=== PATIENT | male | born 1970 | race Caucasian/White ===

== ENCOUNTER 2016-06-22 20:00 | Outpatient (CLI) | payer BC | END 2016-06-23 06:40 | disposition home or self-care (01) | LOC: SLEEP 20:00 | PROVIDERS: ATTEND Nurse Practitioner Family | DX: G47.33 Obstructive sleep apnea (adult) (pediatric) (principal); I10 Essential (primary) hypertension | CPT/HCPCS: 95811 ==

== ENCOUNTER → 2016-06-24 | Outpatient (CLI) | payer BC ==
--- NOTE | 2016-06-24 16:12 | Diagnostic Imaging Report ---
EXAMINATION: Bilateral lower extremity duplex venous ultrasound. TECHNIQUE: DVT protocol. Multiple sonographic images with color Doppler and waveform interrogation were performed of the lower extremity veins, bilaterally, with compression and augmentation maneuvers. INDICATION: Bilateral leg swelling. FINDINGS: The lower extremity veins from the common femoral veins to below the knee veins were examined with normal color-flow, compressibility and normal waveform demonstrated. Due to the large body habitus and swelling however femoral vein in the distal left thigh is not well seen. IMPRESSION: The femoral vein is not seen in the distal left thigh due to large body habitus and swelling. No evidence of DVT in either lower extremity noted otherwise. Correlate clinically. Dictated by: Dictated on workstation # [id number]
--- NOTE | 2016-06-26 09:52 | ECHOCARDIOGRAPHY REPORT ---
PROCEDURE PHYSICIAN: MARK MUELLER DATE OF PROCEDURE: 06/24/2016 TWO DIMENSIONAL ECHOCARDIOGRAM REPORT PRIMARY PHYSICIAN: Dr. Selina Hester OTHER PHYSICIAN: REFERRING PHYSICIAN: ORDERING PHYSICIAN: ATTENDING PHYSICIAN: FAMILY PHYSICIAN: READING PHYSICIAN: INDICATION FOR THE PROCEDURE: Peripheral edema, shortness of breath MEASUREMENTS DERIVED VALUES LV DIAMETER (LAX) NORMALS NORMALS Diastolic (3.6-5.2) Eject. Fract. (60%+/-6%) Systolic (2.3-3.9) Diastolic Vol. % Shortening (0.22-0.42) Systolic Vol. Aortic Root IVS THICKNESS Diastolic (0.6-1.1) LVPW THICKNESS Diastolic (0.6-1.1) LA DIAMETER Systolic (2.1-3.7) FINDINGS: 1. This is a technically difficult study due to morbid obesity. 2. Sinus rhythm. 3. Left atrial dimensions are enlarged. Left atrial diameter is 4.2 cm. 4. Aortic root dimensions are normal. 5. Left ventricular ejection fraction is probably preserved with an EF of around 60%. Mild concentric LVH is present with diastolic intraventricular septal diameter of 1.1 cm. 6. It is difficult to accurately assess wall motion abnormality due to technically difficult study due to morbid obesity. Contrast echocardiogram is recommended. 7. Difficult to assess right heart dimension and function. 8. There is no evidence of pericardial effusion. 9. Difficult to comment on diastolic dysfunction. 10. IVC was not well visualized. VALVULAR STRUCTURE OF THE HEART: Mild tricuspid regurgitation with RVSP of 23 mmHg. No significant mitral regurgitation, aortic valve pathology was seen. Pulmonic valve was not well visualized. CONCLUSION: 1. Due to morbid obesity this is a technically difficult study. Contrast echocardiogram is recommended. 2. LV EF is probably normal with an EF of 60 to 65%. We cannot comment on wall motion. If accurate delineation of ejection fraction and wall motion is required then contrast echocardiogram is recommended. 3. There is no significant valvular heart disease. 4. RVSP is not significantly elevated. Job ID: [id number] Dictated Date: 06/25/2016 15:14:10 Carrot Grader Inspector Date: 06/26/2016 09:45:24 / pat
== END ==
LOC: CARD 14:13
PROVIDERS: ATTEND Internal Medicine Interventional Cardiology
DX: R60.0 Localized edema (principal); I10 Essential (primary) hypertension; E66.9 Obesity, unspecified
CPT/HCPCS: 93306; 93970

== ENCOUNTER → 2016-07-09 | Outpatient (CLI) | payer BC ==
--- NOTE | 2016-07-09 14:57 | Diagnostic Imaging Report ---
INDICATION: Pain in the lumbar region radiating into left hip for one and a half months. FINDINGS: Two views of the left hip are somewhat limited due to the large body habitus. There is no fracture, dislocation, or other acute abnormality seen. No significant degenerative changes are evident. No avascular necrosis is evident. IMPRESSION: No abnormality is seen. Dictated by: Dictated on workstation # [id number]
--- NOTE | 2016-07-09 14:57 | Diagnostic Imaging Report ---
INDICATION: Lumbar pain with radiation to the left hip FINDINGS: AP and lateral views of the lumbar spine are obtained. Study is limited by patient body habitus. Lumbar spinal curvature and alignment are within normal limits. There is mild narrowing of the L4-5 and L5-S1 disc spaces with mild endplate spurring. There is no evidence of fracture or malalignment. IMPRESSION: L4-5 and L5-S1 degenerative change without evidence of acute abnormality detected. Dictated by: Dictated on workstation # [id number]
== END ==
LOC: RAD 11:30
PROVIDERS: ATTEND Nurse Practitioner Family
DX: M25.552 Pain in left hip (principal)
CPT/HCPCS: 72100; 73502

== ENCOUNTER → 2016-11-29 | Outpatient (CLI) | payer BC | LOC: CARD 09:05 | PROVIDERS: ATTEND Internal Medicine Interventional Cardiology | DX: I10 Essential (primary) hypertension (principal); R60.9 Edema, unspecified | CPT/HCPCS: 93306 ==

== ENCOUNTER 2017-10-08 10:18 | Emergency (ER) | payer BC ==
[~2017-10-08] VITALS: Ht 188 cm; Wt 231.3 kg
--- OUTSIDE RECORDS SUMMARY | 2017-10-08 10:24 | XMS REPORT | Continuity of Care Document ---
Author Author [facility] Organization [facility] Address Unknown Phone Unavailable Allergies There is no data. Medications There is no data. Problems Date Dx Coded Attending Type Code Diagnosis Diagnosed By 05/24/2013 NAM CARDOSO APRN 719.41 PAIN- SHOULDER 05/24/2013 GIAN LYNCH APRN 719.41 PAIN- SHOULDER 09/23/2013 GIAN LYNCH APRN 278.00 OBESITY UNSPECIFIED 09/23/2013 GIAN LYNCH APRN R 782.2 LOCALIZED SUPERFICIAL SWELLING MASS OR LUMP 09/24/2013 GIAN LYNCH APRN R 278.01 OBESITY, MORBID (BMI >40) 09/24/2013 GIAN LYNCH APRN R 780.79 fatigue 09/24/2013 GIAN LYNCH APRN R V70.0 EXAM - ROUTINE H&P 05/17/2016 GIAN LYNCH R STEAM TABLE ASSOCIATE Ot 709.9 SKIN DISORDER NOS 05/17/2016 GIAN LYNCH R STEAM TABLE ASSOCIATE Ot 782.2 LOCAL SUPRFICIAL SWELLNG 05/21/2016 GIAN LYNCH R STEAM TABLE ASSOCIATE Ot 709.9 SKIN DISORDER NOS 05/21/2016 GIAN LYNCH R STEAM TABLE ASSOCIATE Ot 782.2 LOCAL SUPRFICIAL SWELLNG 06/19/2016 GIAN LYNCH R STEAM TABLE ASSOCIATE Ot 709.9 SKIN DISORDER NOS 06/19/2016 GIAN LYNCH R STEAM TABLE ASSOCIATE Ot 782.2 LOCAL SUPRFICIAL SWELLNG 06/20/2016 GIAN LYNCH R STEAM TABLE ASSOCIATE Ot 709.9 SKIN DISORDER NOS 06/20/2016 GIAN LYNCH R STEAM TABLE ASSOCIATE Ot 782.2 LOCAL SUPRFICIAL SWELLNG 06/23/2016 BRITTON HARRIS APRN Ot G47.33 OBSTRUCTIVE SLEEP APNEA (ADULT) (PEDIATR 06/23/2016 BRITTON HARRIS APRN Ot I10 ESSENTIAL (PRIMARY) HYPERTENSION 06/25/2016 Panfilo MUELLER MD Ot E66.9 OBESITY, UNSPECIFIED 06/25/2016 Panfilo MUELLER MD Ot I10 ESSENTIAL (PRIMARY) HYPERTENSION 06/25/2016 Panfilo MUELLER MD Ot R60.0 LOCALIZED EDEMA 06/25/2016 Panfilo MUELLER MD Ot E66.9 OBESITY, UNSPECIFIED 06/25/2016 Panfilo MUELLER MD Ot I10 ESSENTIAL (PRIMARY) HYPERTENSION 06/25/2016 Panfilo MUELLER MD Ot R60.0 LOCALIZED EDEMA 06/28/2016 BRITTON HARRIS STEAM TABLE ASSOCIATE Ot G47.33 OBSTRUCTIVE SLEEP APNEA (ADULT) (PEDIATR 06/28/2016 BRITTON HARRIS STEAM TABLE ASSOCIATE Ot I10 ESSENTIAL (PRIMARY) HYPERTENSION 06/28/2016 Panfilo MUELLER MD Ot E66.9 OBESITY, UNSPECIFIED 06/28/2016 Panfilo MUELLER MD Ot I10 ESSENTIAL (PRIMARY) HYPERTENSION 06/28/2016 Panfilo MUELLER MD Ot R60.0 LOCALIZED EDEMA 07/10/2016 BRITTON HARRIS STEAM TABLE ASSOCIATE Ot M25.552 PAIN IN LEFT HIP 07/10/2016 BRITTON HARRIS STEAM TABLE ASSOCIATE Ot M25.552 PAIN IN LEFT HIP 07/11/2016 Panfilo MUELLER MD Ot E66.9 OBESITY, UNSPECIFIED 07/11/2016 Panfilo MUELLER MD Ot I10 ESSENTIAL (PRIMARY) HYPERTENSION 07/11/2016 Panfilo MUELLER MD Ot R60.0 LOCALIZED EDEMA 07/18/2016 BRITTON HARRIS STEAM TABLE ASSOCIATE Ot M25.552 PAIN IN LEFT HIP 11/29/2016 Panfilo MUELLER MD Ot E66.9 OBESITY, UNSPECIFIED 11/29/2016 Panfilo MUELLER MD Ot I10 ESSENTIAL (PRIMARY) HYPERTENSION 11/29/2016 Panfilo MUELLER MD Ot R60.0 LOCALIZED EDEMA 11/29/2016 BRITTON HARRIS STEAM TABLE ASSOCIATE Ot M25.552 PAIN IN LEFT HIP 12/02/2016 Panfilo MUELLER MD Ot I10 ESSENTIAL (PRIMARY) HYPERTENSION 12/02/2016 Panfilo MUELLER MD Ot R60.9 EDEMA, UNSPECIFIED 12/05/2016 Panfilo MUELLER MD Ot E66.9 OBESITY, UNSPECIFIED 12/05/2016 Panfilo MUELLER MD Ot I10 ESSENTIAL (PRIMARY) HYPERTENSION 12/05/2016 Panfilo MUELLER MD Ot R60.0 LOCALIZED EDEMA 12/05/2016 BRITTON HARRIS APRN Ot M25.552 PAIN IN LEFT HIP 12/05/2016 Panfilo MUELLER MD Ot I10 ESSENTIAL (PRIMARY) HYPERTENSION 12/05/2016 Panfilo MUELLER MD, Ot R60.9 EDEMA, UNSPECIFIED 12/11/2016 Panfilo MUELLER MD, Ot I10 ESSENTIAL (PRIMARY) HYPERTENSION 12/11/2016 Panfilo MUELLER MD Ot R60.9 EDEMA, UNSPECIFIED 12/13/2016 Panfilo MUELLER MD Ot I10 ESSENTIAL (PRIMARY) HYPERTENSION 12/13/2016 Panfilo MUELLER MD Ot R60.9 EDEMA, UNSPECIFIED Procedures Code [place] [address] ROUTINE VENIPUNCTURE 09/24/2013 59175 CBC 09/24/2013 [id number] GFR CALC (RESULT ONLY) 09/24/2013 83730 CMP 09/24/2013 85007 LIPID PANEL 09/24/2013 69714 T4 FREE 09/24/2013 52253 TSH 09/24/2013 42056 T3 TOTAL 09/24/2013 09385 TESTOSTERONE TOTAL MALES 09/24/2013 51408 PROLACTIN 09/28/2013 17522 PSA TOTAL 09/28/2013 97939 US SOFT TISSUE (SPECIFY LOCATION) 10/07/2013 General S Yannick Miles 10/13/2013 Results There is no data. Encounters ACCT No. Visit Date/Time Discharge Status Pt. Type Provider Facility Loc./Unit Complaint [id number] 11/29/2016 09:05:00 11/29/2016 23:59:59 CLS Outpatient Panfilo MUELLER MD [facility] CARD ESSENTIAL HTN I10 [id number] 07/09/2016 11:30:00 07/09/2016 23:59:59 CLS Outpatient BRITTON HARRIS APRN [facility] RAD LEFT HIP PAIN [id number] 06/24/2016 14:13:00 06/24/2016 23:59:59 CLS Outpatient Panfilo MUELLER MD [facility] CARD PERIPHERAL EDEMA [id number] 06/22/2016 20:00:00 06/23/2016 06:40:00 DIS Outpatient BRITTON HARRIS APRN [facility] SLEEP JEFERSON [id number] 10/12/2013 14:41:00 10/12/2013 23:59:59 CLS Outpatient GIAN LYNCH APRN [facility] RAD LESION ON UPPER LT BUTTOCK [id number] 09/24/2013 07:57:00 09/24/2013 23:59:59 CLS Outpatient GIAN LYNCH APRN [id number] 05/24/2013 14:02:00 05/24/2013 23:59:59 CLS Outpatient NAM CARDOSO APRN [id number] 03/20/2017 10:37:35 03/20/2017 23:59:59 CLS Outpatient
--- OUTSIDE RECORDS SUMMARY | 2017-10-08 10:24 | XMS REPORT | Clinical Summary ---
Author Author [facility] Organization [facility] Address Unknown Phone Unavailable Care Team Providers Care Induction Heating Equipment Setter Name Role Phone [place] MD PCP Source Comments Some departments are not documenting in the electronic medical record. If you do not see the information that you expected, contact Release of Information in the Health Information Management department at [phone] for further assistance in locating additional records.[facility] Allergies No Known Allergies Current Medications Prescription Sig. Disp. Refills Start End Date Status Date furosemide (LASIX) 40 mg Take 40 mg by mouth every Active tablet morning. lisinopril (PRINIVIL; Take 20 mg by mouth Active ZESTRIL) 20 mg tablet daily. AMLODIPINE BESYLATE Use 5 mg as directed. Active (BULK) MISC metOLazone (ZAROXOLYN) 5 Take 5 mg by mouth daily. Active mg tablet potassium chloride SR Take 20 mEq by mouth Active (K-DUR) 20 mEq tablet daily. Take with a meal and a full glass of water. clobetasol (TEMOVATE) Apply topically to 60 g 3 02/04/20 Active 0.05 % topical ointment affected area twice 17 daily. Active Problems Not on file Family History Medical History Relation Name Comments Heart Attack Father Heart Disease Father Stroke Father Heart Attack Maternal Grandfather Heart Disease Maternal Grandfather Hypertension Maternal Grandfather Stroke Maternal Grandfather Diabetes Mother Hypertension Mother Stroke Mother Relation Name Status Comments Father Maternal Grandfather Mother Social History Tobacco Use Types Packs/Day Years Used Date Never Smoker Smokeless Tobacco: Former Snuff, Chew Quit: 2006 User Alcohol Use Drinks/Week oz/Week Comments Yes 1 Cans of 0.6 beer Sex Assigned at Date Recorded Not on file Last Filed Vital Signs Vital Sign Reading Time Taken Blood Pressure 114/64 02/03/2017 10:28 AM CDT Pulse 68 02/03/2017 10:28 AM CDT Temperature - - Respiratory Rate - - Oxygen Saturation - - Inhaled Oxygen - - Concentration Weight 222.7 kg (491 lb) 02/03/2017 10:28 AM CDT Height 188 cm (6' 2") 02/03/2017 10:28 AM CDT Body Mass Index 63.04 02/03/2017 10:28 AM CDT Plan of Treatment Health Maintenance Due Date Last Done Comments PHYSICAL (COMPREHENSIVE) 10/15/1979 EXAM PERTUSSIS VACCINE 10/15/1983 HIV SCREENING 10/15/1987 TETANUS VACCINE 1989 INFLUENZA VACCINE 02/16/2018 02/17/2015 Results Not on filefrom Last 3 Months
[2017-10-08] MEDS ORDERED: FAMOTIDINE 20 MG (PEPCID) TABLET PO STA (10:41)
[2017-10-08] MEDS ORDERED: LIDOCAINE 2% VISCOUS 15 ML UDC PO ONE (10:45)
[2017-10-08] MEDS ORDERED: ANTACID SUSP 30 ML UDC (MYLANTA) PO ONE (10:45)
--- NOTE | 2017-10-08 10:50 | ED Abdominal Pain ---
General Stated Complaint: ABD PAIN Source of Information: Patient, Other Exam Limitations: No Limitations History of Present Illness Date Seen by Provider: October 08, 2017 Time Seen by Provider: 10:35 Initial Comments The patient presents to the ER by private conveyance with a chief complaint he' s been having some midepigastric abdominal pain that feels burning and some constant for the past for 5 days and progressively getting worse. He took Tums a couple times but didn't feel that that helped. He has no primary coronary artery disease other than a history of hypertension and his father had a heart attack after the age of 50. He is on medications for his blood pressure and seen by Dr. Bauer as well as Dr. Kushal Pal. He is not diabetic, have hypercholesterolism, hypothyroidism, smoking. Occasionally he's had some nausea but no vomiting. He is not nauseated right now and is not having any fevers or chills. He denies dysuria, diarrhea or constipation. Last bowel movement was today normal. Last oral intake was he had a glass of water about an hour ago and ate breakfast at 6:30 this morning, 4 hours ago. No abd surgery. Pain radiates to the RUQ Allergies and Home Medications Allergies Coded Allergies: No Known Drug Allergies (Unverified , 10/08/17) Home Medications Amlodipine Besylate 5 Mg Tablet, 5 MG PO DAILY, (Reported) Insulin Determir 1,000 Units/10 Ml Soln, 15 UNITS SQ BID Prescribed by: LOREE ORELLANA on 10/08/17 1333 Lisinopril 20 Mg Tablet, 20 MG PO DAILY, (Reported) Patient Home Medication List Home Medication List Reviewed: Yes Review of Systems Constitutional: No chills, No diaphoresis, No malaise EENTM: No Blurred Vision, No Double Vision Respiratory: Denies Cough, Denies Shortness of Air Cardiovascular: Denies Chest Pain; Edema (chronic); Denies Palpitations, Denies Syncope Gastrointestinal: Denies Abdomen Distended; Abdominal Pain; Denies Constipated , Denies Diarrhea; Nausea; Denies Vomiting; Other (gassy) Genitourinary: Denies Burning, Denies Discharge Musculoskeletal: No back pain, No joint pain Skin: No pruritus, No rash Past Lxueims-Wdyljo-Cyjqie Hx Patient Social History Alcohol Use: Occasionally Uses Alcohol Beverage of Choice: Beer Recreational Drug Use: No Smoking Status: Never a Smoker Recent Foreign Travel: No Contact w/Someone Who Travel: No Physical Exam Vital Signs Vital Signs - First Documented 10/08/17 10:30 Temp 97.2 Pulse 108 Resp 18 B/P (MAP) 144/89 (107) Pulse Ox 93 Capillary Refill : General Appearance: WD/WN, no apparent distress, obese HEENT: PERRL/EOMI, pharynx normal Neck: non-tender, full range of motion, supple, normal inspection Respiratory: chest non-tender, lungs clear, normal breath sounds, no respiratory distress, no accessory muscle use Cardiovascular: normal peripheral pulses, regular rate, rhythm, no edema Gastrointestinal: normal bowel sounds, soft, tenderness (mid epigastric), other (ibarra's negative) Extremities: normal inspection, no pedal edema, normal capillary refill Neurologic/Psychiatric: alert, normal mood/affect, oriented x 3 Skin: normal color, warm/dry Progress/Results/Core Measures Results/Orders Lab Results Laboratory Tests Test 10/08/17 10:45 10/08/17 11:15 10/08/17 12:26 Range/Units White Blood Count 11.4 H 4.3-11.0 10^3/uL Red Blood Count 4.92 4.35-5.85 10^6/uL Hemoglobin 15.9 13.3-17.7 G/DL Hematocrit 45 40-54 % Mean Corpuscular Volume 91 80-99 FL Mean Corpuscular Hemoglobin 32 25-34 PG Mean Corpuscular Hemoglobin Concent 36 32-36 G/DL Red Cell Distribution Width 13.1 10.0-14.5 % Platelet Count 267 130-400 10^3/uL Mean Platelet Volume 10.4 7.4-10.4 FL Neutrophils (%) (Auto) 62 42-75 % Lymphocytes (%) (Auto) 25 12-44 % Monocytes (%) (Auto) 12 0-12 % Eosinophils (%) (Auto) 0 0-10 % Basophils (%) (Auto) 0 0-10 % Neutrophils # (Auto) 7.1 1.8-7.8 X 10^3 Lymphocytes # (Auto) 2.9 1.0-4.0 X 10^3 Monocytes # (Auto) 1.4 H 0.0-1.0 X 10^3 Eosinophils # (Auto) 0.0 0.0-0.3 10^3/uL Basophils # (Auto) 0.1 0.0-0.1 10^3/uL Sodium Level 130 L 135-145 MMOL/L Potassium Level 3.7 3.6-5.0 MMOL/L Chloride Level 91 L 98-107 MMOL/L Carbon Dioxide Level 25 21-32 MMOL/L Anion Gap 14 5-14 MMOL/L Blood Urea Nitrogen 20 H 7-18 MG/DL Creatinine 1.08 0.60-1.30 MG/DL Estimat Glomerular Filtration Rate > 60 BUN/Creatinine Ratio 19 Glucose Level 572 *H 70-105 MG/DL Calcium Level 9.6 8.5-10.1 MG/DL Total Bilirubin 1.0 0.1-1.0 MG/DL Aspartate Amino Transf (AST/SGOT) 35 H 5-34 U/L Alanine Aminotransferase (ALT/SGPT) 65 H 0-55 U/L Alkaline Phosphatase 71 40-136 U/L Troponin I < 0.30 <0.30 NG/ML Total Protein 7.6 6.4-8.2 GM/DL Albumin 4.2 3.2-4.5 GM/DL Lipase 23 8-78 U/L Urine Color YELLOW Urine Clarity CLEAR Urine pH 6 5-9 Urine Specific [place] 1.015 L 1.016-1.022 Urine Protein NEGATIVE NEGATIVE Urine Glucose (UA) 4+ H NEGATIVE Urine Ketones 2+ H NEGATIVE Urine Nitrite NEGATIVE NEGATIVE Urine Bilirubin NEGATIVE NEGATIVE Urine Urobilinogen NORMAL NORMAL MG/DL Urine Leukocyte Esterase NEGATIVE NEGATIVE Urine RBC (Auto) NEGATIVE NEGATIVE Urine RBC RARE /HPF Urine WBC NONE /HPF Urine Crystals NONE /LPF Urine Bacteria NEGATIVE /HPF Urine Casts NONE /LPF Urine Mucus NEGATIVE /LPF Urine Culture Indicated NO My Orders Orders - LOREE ORELLANA Cbc With Automated Diff (10/08/17 10:41) Comprehensive Metabolic Panel (10/08/17 10:41) Lipase (10/08/17 10:41) Lidocaine 2% Viscous 15 Ml (Xylocaine Vi (10/08/17 10:45) Famotidine Tablet (Pepcid Tablet) (10/08/17 10:41) Antacid Suspension (Mylanta Suspension (10/08/17 10:45) Saline Lock/Iv-Start (10/08/17 10:41) Ekg Tracing (10/08/17 10:57) Troponin I (10/08/17 10:57) Ua Culture If Indicated (10/08/17 12:19) Ns Iv 1000 Ml (Sodium Chloride 0.9%) (10/08/17 13:07) Ns Iv 1000 Ml (Sodium Chloride 0.9%) (10/08/17 13:04) Insulin (Regular) Human (Humulin R (Per (10/08/17 13:30) Accucheck Stat ONCE (10/08/17 14:15) Ketorolac Injection (Toradol Injection) (10/08/17 14:30) Medications Given in ED Current Medications Medications Dose Ordered Sig/Kristie Route Start Time Stop Time Status Last Admin Dose Admin Al Hydrox/Mg Hydrox/Simethicone 30 ml ONCE ONCE PO 10/08/17 10:45 10/08/17 10:46 DC 10/08/17 11:02 30 ML Insulin Human Regular 10 unit ONCE ONCE SC 10/08/17 13:30 10/08/17 13:31 DC 10/08/17 13:56 10 UNIT Ketorolac Tromethamine 15 mg ONCE ONCE IVP 10/08/17 14:30 10/08/17 14:31 DC 10/08/17 14:26 15 MG Lidocaine HCl 15 ml ONCE ONCE PO 10/08/17 10:45 10/08/17 10:46 DC 10/08/17 11:02 15 ML Vital Signs/I&O 10/08/17 10:30 Temp 97.2 Pulse 108 Resp 18 B/P (MAP) 144/89 (107) Pulse Ox 93 Progress Progress Note #1: Time: 10:56 Progress Note Differential includes gastritis, GERD, PUD, pancreatitis, cholecystitis. We'll start with labs and a GI cocktail. We'll get an EKG for possible atypical cardiac pain but it is on the present and made worse by eating so it's unlikely. No pleuritic nature of his pain. Initially he is having some symptom relief from the GI cocktail. November [address] Bauer: Left ventricle EF 55-65% normal systolic function and wall thickness. No diastolic dysfunction. RV systolic function normal. Left atrium dilated. No significant valvular heart disease. Progress Note #2: Time: 13:24 Progress Note The patient says that his burning sensation was gone after the GI cocktail images as a dull ache across his abdomen. We discussed the risks, benefits and alternatives to being treated inpatient for a day versus going home and following up close we with his primary care provider. The patient says he has an appointment at 4:30 tomorrow with Kushal Pal so if we can get him tuned up and feeling better he would prefer to go home. We're to give him 2 L of fluids and 10 units of regular insulin subcutaneous. We'll then recheck an Accu-Chek in about half an hour. Were going to try and get the ict educator to do some teaching as well as the RN. I have done some counseling on how to give insulin how to manage as well as diet tips. We have also encouraged a 5-10% weight loss over the next year to help him reduce the need for insulin. We have also discussed strict return precautions. Initial ECG Impression Date: October 08, 2017 Initial ECG Impression Time: 10:57 Initial ECG Rate: 101 Initial ECG Rhythm: S.Tach Initial ECG Intervals: QT (488) Initial ECG Impression: Normal Initial ECG Comparisson: Unchanged Comment No ST elevation or depression. Departure Communication (PCP) 1315; Dr. Kushal Pal: Discussed case lab imaging findings new finding of diabetes. The patient has an appointment tomorrow and if we can get him feeling better with some fluids and insulin he says start him on Levemir 15 units twice a day and have him follow-up tomorrow in the clinic. However if the patient wants to be admitted he is more than willing to admit him under the same plan. Impression Primary Impression: Diabetes mellitus Qualified Codes: E11.8 - Type 2 diabetes mellitus with unspecified complications Additional Impressions: Ketosis due to diabetes Hyperglycemia Disposition: 01 HOME, SELF-CARE Condition: Improved Departure-Patient Inst. Decision time for Depature: 14:35 Referrals: KUSHAL PAL MD (PCP/Family) Primary Care Physician Patient Instructions: DIABETES Add. Discharge Instructions: Keep your follow-up appointment tomorrow afternoon with your doctor. internal grinder set up operator a glucometer and check your blood sugar fasting tomorrow morning as well as 2 hours after the largest meal of the day and take that information with you to your primary care provider. internal grinder set up operator the Levemir and take 15 units and inject it subcutaneously twice a day. Scripts Isopropyl Alcohol (Alcoh-Wipe) 1 Each Towelette EACH MC BID for Hyperglycemia, #1 Prov: LOREE ORELLANA 10/08/17 Syring W-Ndl,Disp,Insul,0.5 ml (Insulin Syringe) 1 Each Disp.syrin EACH MC BID for Hyperglycemia, #100 Prov: LOREE ORELLANA 10/08/17 Lancets (Droplet Lancets) 1 Each Each EACH MC for Hypoglycemia, #100 Prov: LOREE ORELLANA 10/08/17 Blood-Glucose Meter (Blood Glucose Meter) 1 Each Each EACH MC BID for Hypoglycemia, #1 Prov: LOREE ORELLANA 10/08/17 Insulin Determir (Levemir) 1,000 Units/10 Ml Soln 15 UNITS SQ BID, #1 EA Prov: LOREE ORELLANA 10/08/17 Copy Copies To 1: KUSHAL PAL MD, TITUS J October 08, 2017 10:50
[2017-10-08 10:52] LABS: BASOPHILS # (AUTO) 0.1 10^3/uL (0.0-0.1); BASOPHILS % (AUTO) 0 % (0-10); EOSINOPHILS % (AUTO) 0 % (0-10); HEMATOCRIT 45 % (40-54); HEMOGLOBIN 15.9 G/DL (13.3-17.7); LYMPHOCYTES # (AUTO) 2.9 X 10^3 (1.0-4.0); LYMPHOCYTES % (AUTO) 25 % (12-44); MEAN CORPUSCULAR HEMOGLOBIN 32 PG (25-34); MEAN CORPUSCULAR HGB CONC 36 G/DL (32-36); MEAN CORPUSCULAR VOLUME 91 FL (80-99); MEAN PLATELET VOLUME 10.4 FL (7.4-10.4); MONOCYTES # (AUTO) 1.4 X 10^3 (0.0-1.0); MONOCYTES % (AUTO) 12 % (0-12); NEUTROPHILS # (AUTO) 7.1 X 10^3 (1.8-7.8); NEUTROPHILS % (AUTO) 62 % (42-75); PLATELET COUNT 267 10^3/uL (130-400); RED BLOOD COUNT 4.92 10^6/uL (4.35-5.85); RED CELL DISTRIBUTION WIDTH 13.1 % (10.0-14.5); WHITE BLOOD COUNT 11.4 10^3/uL (4.3-11.0)
[2017-10-08] MEDS ORDERED: FURO-124 PO (11:13)
[2017-10-08] MEDS ORDERED: POTA20TA15 PO (11:13)
[2017-10-08] MEDS ORDERED: AMLO5TAB2 PO (11:13)
[2017-10-08] MEDS ORDERED: LISI-552 PO (11:13)
[2017-10-08 11:44] LABS: ALANINE AMINOTRANSFERASE 65 U/L (0-55); ALBUMIN 4.2 GM/DL (3.2-4.5); ALKALINE PHOSPHATASE 71 U/L (40-136); BUN/CREATININE RATIO 19; CALCIUM 9.6 MG/DL (8.5-10.1); CARBON DIOXIDE 25 MMOL/L (21-32); CHLORIDE 91 MMOL/L (98-107); CREATININE SERUM 1.08 MG/DL (0.60-1.30); GFR ESTIMATED > 60; LIPASE 23 U/L (8-78); POTASSIUM 3.7 MMOL/L (3.6-5.0); SODIUM 130 MMOL/L (135-145); TOTAL PROTEIN 7.6 GM/DL (6.4-8.2)
[2017-10-08 12:03] LABS: GLUCOSE 572 MG/DL (70-105)
[2017-10-08 12:35] LABS: BILIRUBIN,URINE NEGATIVE (NEGATIVE); CLARITY,URINE CLEAR; COLOR,URINE YELLOW; GLUCOSE, URINE (UA) 4+ (NEGATIVE); KETONES,URINE 2+ (NEGATIVE); LEUKOCYTE ESTERASE ,URINE NEGATIVE (NEGATIVE); NITRITE,URINE NEGATIVE (NEGATIVE); PH,URINE 6 (5-9); PROTEIN,URINE NEGATIVE (NEGATIVE); UROBILINOGEN,URINE NORMAL (NORMAL)
[2017-10-08 12:43] LABS: BACTERIA,URINE NEGATIVE /HPF; RBC,URINE RARE /HPF
[2017-10-08] MEDS ORDERED: NS IV 1000 ML 2,000 ML ONE (13:04)
[2017-10-08] MEDS ORDERED: NS IV 1000 ML 1,000 ML IV SCH (13:07)
[2017-10-08] MEDS ORDERED: inSUlin (REGULAR) HUMAN 1 UNIT/0.01 ML (CHARGE PER UNIT) SC ONE (13:30)
[2017-10-08] MEDS ORDERED: BLOO1EAC87 MC (13:33)
[2017-10-08] MEDS ORDERED: ISOP1TOW MC (13:33)
[2017-10-08] MEDS ORDERED: [UNRECOGNIZED DRUG - CODE] MC (13:33)
[2017-10-08] MEDS ORDERED: SYRI-820 MC (13:33)
[2017-10-08] MEDS ORDERED: INSU100V5 SQ (13:33)
[2017-10-08] MEDS ORDERED: KETOROLAC 30 MG/ML VIAL IVP ONE (14:30)
[2017-10-08 14:42] VITALS: BP 132/86
== END 2017-10-08 14:41 | disposition home or self-care (01) ==
LOC: EDUNIT# 10:18 → ER 10:20
DX: E11.10 Type 2 diabetes mellitus with ketoacidosis without coma (principal); E11.65 Type 2 diabetes mellitus with hyperglycemia; I10 Essential (primary) hypertension; Z79.4 Long term (current) use of insulin; Z82.49 Family history of ischemic heart disease and other diseases of the circulatory system
CPT/HCPCS: 36415; 80053; 81000; 82962; 83690; 84484; 85025; 93005; 96361; 96372; 96374

== ENCOUNTER 2018-02-11 07:17 | Inpatient (IN) | payer BC ==
[~2018-02-11] VITALS: Ht 188 cm; Wt 211.9 kg
[~2018-02-11 07:17] MED LIST: AMLO5TAB7 PO; BLOO1EAC87 MC; FURO-124 PO; INSU100V5 SQ; ISOP1TOW MC; LISI-552 PO; POTA20TA15 PO; SYRI-820 MC; [UNRECOGNIZED DRUG - CODE] MC
--- NOTE | 2018-02-11 07:40 | ED Integumentary General ---
General Chief Complaint: Skin/Wound Problems Stated Complaint: L LEG SWELLING Nursing Triage Note: PT STATES LAST NIGHT HE BEGAN TO DEVELOPE SWELLING AND REDNESS WITH PAIN IN HIS LLE WITH NO KNOWN TRAUMATIC EVENT. Source: patient Exam Limitations: no limitations History of Present Illness Date Seen by Provider: Feb 11, 2018 Time Seen by Provider: 07:25 Initial Comments The patient presents to the ER by private conveyance with a chief complaint of this morning he started noticing increased redness swelling and pain in his left lower extremity. He has a history of cellulitis but no history of DVTs. He is not having any exertional dyspnea, shortness of breath, chest pain, cough. The increased pain today is different from his normal saline as presentation. He did take some Aleve this morning for the pain about an hour and a half prior to coming. When he got home yesterday his thought he looked hot and took his temperature and told him it was 104.0. He is not having any nausea sweats or chills. He does not smoke and does not have any history of recent immobilization, surgery or injury to his left lower extremity. Allergies and Home Medications Allergies Coded Allergies: No Known Drug Allergies (Unverified , 10/08/17) Home Medications Amlodipine Besylate 5 Mg Tablet, 5 MG PO DAILY, (Reported) Insulin Determir 1,000 Units/10 Ml Soln, 15 UNITS SQ BID Prescribed by: LOREE ORELLANA on 10/08/17 1333 Lisinopril 20 Mg Tablet, 20 MG PO DAILY, (Reported) Patient Home Medication List Home Medication List Reviewed: Yes Review of Systems Review of Systems Constitutional: No chills, No diaphoresis; fever; No malaise EENTM: No hearing loss, No ear pain Respiratory: No cough, No short of breath Cardiovascular: No chest pain, No edema, No Hx of Intervention, No palpitations Gastrointestinal: No abdominal pain, No constipation, No diarrhea Genitourinary: No discharge, No dysuria Musculoskeletal: see HPI Skin: other (redness left lower extremity) Past Neqrsex-Palpyb-Vdchpv Hx Patient Social History Alcohol Use: Occasionally Uses Alcohol Beverage of Choice: Beer Recreational Drug Use: No Smoking Status: Never a Smoker Recent Foreign Travel: No Contact w/Someone Who Travel: No Recent Infectious Disease Expo: No Recent Hopitalizations: No Seasonal Allergies Seasonal Allergies: No Past Medical History Surgeries: No Respiratory: Yes Sleep Apnea Currently Using CPAP: Yes Cardiac: Yes Hypertension Neurological: No Genitourinary: No Gastrointestinal: No Musculoskeletal: No Endocrine: No HEENT: No Cancer: No Psychosocial: No Blood Disorders: No Physical Exam Vital Signs Vital Signs - First Documented 02/11/18 07:27 Temp 98.9 Pulse 102 Resp 18 B/P (MAP) 105/63 (77) Pulse Ox 96 O2 Delivery Room Air Capillary Refill : Less Than 3 Seconds General Appearance: WD/WN, no apparent distress HEENT: PERRL/EOMI, pharynx normal Cardiovascular: normal peripheral pulses, regular rate, rhythm, tachycardia ( 101) Respiratory: chest non-tender, lungs clear, normal breath sounds, no respiratory distress, no accessory muscle use Extremities: normal capillary refill, calf tenderness, swelling, other ( erythema, inflammation, tenderness to the left lower extremity from the ankle up to the base of the knee.) Neurologic/Psychiatric: alert, normal mood/affect, oriented x 3 Progress/Results/Core Measures Results/Orders Lab Results Laboratory Tests Test 02/11/18 07:45 02/11/18 08:52 Range/Units White Blood Count 19.9 H 4.3-11.0 10^3/uL Red Blood Count 3.80 L 4.35-5.85 10^6/uL Hemoglobin 12.4 L 13.3-17.7 G/DL Hematocrit 37 L 40-54 % Mean Corpuscular Volume 96 80-99 FL Mean Corpuscular Hemoglobin 33 25-34 PG Mean Corpuscular Hemoglobin Concent 34 32-36 G/DL Red Cell Distribution Width 13.4 10.0-14.5 % Platelet Count 220 130-400 10^3/uL Mean Platelet Volume 10.5 H 7.4-10.4 FL Neutrophils (%) (Auto) 91 H 42-75 % Lymphocytes (%) (Auto) 5 L 12-44 % Monocytes (%) (Auto) 4 0-12 % Eosinophils (%) (Auto) 0 0-10 % Basophils (%) (Auto) 0 0-10 % Neutrophils # (Auto) 18.1 H 1.8-7.8 X 10^3 Lymphocytes # (Auto) 1.0 1.0-4.0 X 10^3 Monocytes # (Auto) 0.8 0.0-1.0 X 10^3 Eosinophils # (Auto) 0.1 0.0-0.3 10^3/uL Basophils # (Auto) 0.0 0.0-0.1 10^3/uL Neutrophils % (Manual) 72 % Lymphocytes % (Manual) 2 % Monocytes % (Manual) 3 % Eosinophils % (Manual) 0 % Basophils % (Manual) 0 % Band Neutrophils 23 % Blood Morphology Comment NORMAL Prothrombin Time 14.6 12.2-14.7 SEC INR Comment 1.1 0.8-1.4 Activated Partial Thromboplast Time 41 H 24-35 SEC D-Dimer 0.92 H 0.00-0.49 UG/ML Sodium Level 139 135-145 MMOL/L Potassium Level 3.5 L 3.6-5.0 MMOL/L Chloride Level 107 98-107 MMOL/L Carbon Dioxide Level 23 21-32 MMOL/L Anion Gap 9 5-14 MMOL/L Blood Urea Nitrogen 29 H 7-18 MG/DL Creatinine 1.08 0.60-1.30 MG/DL Estimat Glomerular Filtration Rate > 60 BUN/Creatinine Ratio 27 Glucose Level 160 H 70-105 MG/DL Calcium Level 9.2 8.5-10.1 MG/DL Total Bilirubin 0.8 0.1-1.0 MG/DL Direct Bilirubin 0.4 H 0.0-0.3 MG/DL Indirect Bilirubin 0.4 MG/DL Aspartate Amino Transf (AST/SGOT) 33 5-34 U/L Alanine Aminotransferase (ALT/SGPT) 34 0-55 U/L Alkaline Phosphatase 80 40-136 U/L C-Reactive Protein High Sensitivity 33.54 H 0.00-0.50 MG/DL Total Protein 7.0 6.4-8.2 GM/DL Albumin 3.5 3.2-4.5 GM/DL Lactic Acid Level 1.62 0.50-2.00 MMOL/L My Orders Orders - LOREE ORELLANA Basic Metabolic Panel (02/11/18 07:31) Cbc With Automated Diff (02/11/18 07:31) Hs C Reactive Protein (02/11/18 07:31) Fibrin Degradation Products (02/11/18 07:31) Saline Lock/Iv-Start (02/11/18 07:31) Continuous Ekg Monitoring (02/11/18 07:55) Ekg Tracing (02/11/18 07:55) Saline Lock/Iv-Start (02/11/18 08:10) Ns Iv 1000 Ml (Sodium Chloride 0.9%) (02/11/18 08:10) Manual Differential (02/11/18 07:45) Ceftriaxone For Iv Use (Rocephin For I (02/11/18 08:30) Saline Lock/Iv-Start (02/11/18 08:25) Ns Iv 1000 Ml (Sodium Chloride 0.9%) (02/11/18 08:25) Ketorolac Injection (Toradol Injection) (02/11/18 08:45) Blood Culture (02/11/18 08:43) Protime With Inr (02/11/18 08:43) Partial Thromboplastin Time (02/11/18 08:43) Saline Lock/Iv-Start (02/11/18 08:43) Vital Signs Adult Sepsis Patie Q15M (02/11/18 08:43) Remove Rings In Anticipation O (02/11/18 08:43) Lactic Acid Analyzer (02/11/18 08:43) Liver Panel (02/11/18 08:43) Medications Given in ED Current Medications Medications Dose Ordered Sig/Kristie Route Start Time Stop Time Status Last Admin Dose Admin Ceftriaxone Sodium 1000 mg/ Sodium Chloride 50 ml @ 100 mls/hr ONCE ONCE IV 02/11/18 08:30 02/11/18 08:59 DC 02/11/18 08:59 100 MLS/HR Ketorolac Tromethamine 15 mg ONCE ONCE IVP 02/11/18 08:45 02/11/18 08:46 DC 02/11/18 08:59 15 MG Vital Signs/I&O 02/11/18 02/11/18 07:27 09:37 Temp 98.9 98.7 Pulse 102 103 Resp 18 20 B/P (MAP) 105/63 (77) 107/38 Pulse Ox 96 98 O2 Delivery Room Air Room Air Blood Pressure Mean: 77 Progress Progress Note #1: Time: 07:39 Progress Note No fever today but he did take Advil. Cellulitis is most likely. Also establish an IV in case needed give Rocephin but there is a modest chance for a DVT so were going to do a d-dimer to see if we can Rule it out. We'll check some labs looking for evidence of inflammation or sepsis. He has tachycardia but he did just walk in. We'll observe him as he had a chance to rest and if his tachycardia persists we will also put some IV fluids on board. Progress Note #2: Time: 08:11 Progress Note After resting for half an hour the patient's heart rate is still 9800. On the telemetry there is quite a bit of artifact and at some points the heart rate looked a little irregular so we obtained an EKG but the patient is in sinus rhythm on the EKG. We'll give him a liter of fluids and see if that doesn't improve his heart rate. IBW is 82 Kg so a 20 ml/kg is 1600ml. if his white count is elevated above 12.5 he would meet sepsis criteria and will give him another 600 cc. Progress Note #3: Time: 10:32 Progress Note Patient's pain is much improved with the Toradol. His labs seem to indicate elevated white count and elevated CRP would be more consistent with a cellulitis. He has a history of cellulitis in his leg. No risk factors for DVT. We have discussed doing an ultrasound and the risks, benefits and us alternatives and the patient has wisely chosen to dispense with this option and we also discussed since he is septic and has not responded so far to his fluid bolus we would prefer he stick around the hospital on observation stay and he agrees to do this. Initial ECG Impression Date: Feb 11, 2018 Initial ECG Impression Time: 08:04 Initial ECG Rate: 96 Initial ECG Rhythm: Normal Sinus Initial ECG Intervals: Normal Initial ECG Impression: Normal, Nonspecific Changes Initial ECG Comparisson: No Previous ECG Available Comment No ST elevation or depression. Sinus rhythm. Departure Communication (Admissions) Time/Spoke to Admitting Phy: 10:35 Discussed case lab and findings with Dr. Pal and he is familiar the patient agrees to accept the patient on observation status. He agrees with Rocephin. Impression Primary Impression: Cellulitis Qualified Codes: L03.116 - Cellulitis of left lower limb Additional Impression: Sepsis Qualified Codes: A41.9 - Sepsis, unspecified organism Disposition: ADMITTED INPATIENT Condition: Stable Admissions Decision to Admit Reason: Admit from ER (General) Decision to Admit/Date: Feb 11, 2018 Time/Decision to Admit Time: 10:36 Departure-Patient Inst. Referrals: HARDY PAL MD (PCP/Family) Primary Care Physician Copy Copies To 1: HARDY PAL MD, TITUS J Feb 11, 2018 07:40
[2018-02-11] MEDS ORDERED: NS IV 1000 ML 1,000 ML IV SCH ×3 (08:10→16:45)
[2018-02-11 08:21] LABS: BASOPHILS % (AUTO) 0 % (0-10); EOSINOPHILS # (AUTO) 0.1 10^3/uL (0.0-0.3); EOSINOPHILS % (AUTO) 0 % (0-10); HEMATOCRIT 37 % (40-54); HEMOGLOBIN 12.4 G/DL (13.3-17.7); LYMPHOCYTES % (AUTO) 5 % (12-44); MEAN CORPUSCULAR HEMOGLOBIN 33 PG (25-34); MEAN CORPUSCULAR HGB CONC 34 G/DL (32-36); MEAN CORPUSCULAR VOLUME 96 FL (80-99); MEAN PLATELET VOLUME 10.5 FL (7.4-10.4); MONOCYTES # (AUTO) 0.8 X 10^3 (0.0-1.0); MONOCYTES % (AUTO) 4 % (0-12); NEUTROPHILS # (AUTO) 18.1 X 10^3 (1.8-7.8); NEUTROPHILS % (AUTO) 91 % (42-75); PLATELET COUNT 220 10^3/uL (130-400); RED CELL DISTRIBUTION WIDTH 13.4 % (10.0-14.5); WHITE BLOOD COUNT 19.9 10^3/uL (4.3-11.0)
[2018-02-11] MEDS ORDERED: cefTRIAXone FOR IV USE 1,000 MG in NS (IVPB) 50 ML IV ONE (08:30)
[2018-02-11 08:39] LABS: BUN/CREATININE RATIO 27; CALCIUM 9.2 MG/DL (8.5-10.1); CARBON DIOXIDE 23 MMOL/L (21-32); CHLORIDE 107 MMOL/L (98-107); CREATININE SERUM 1.08 MG/DL (0.60-1.30); GFR ESTIMATED > 60; GLUCOSE 160 MG/DL (70-105); POTASSIUM 3.5 MMOL/L (3.6-5.0); SODIUM 139 MMOL/L (135-145)
[2018-02-11 08:44] LABS: BAND NEUTROPHILS 23 %; BASOPHILS % (MANUAL) 0 %; EOSINOPHILS % (MANUAL) 0 %; LYMPHOCYTES % (MANUAL) 2 %; MONOCYTES % (MANUAL) 3 %; NEUTROPHILS % (MANUAL) 72 %; RBC MORPH NORMAL
[2018-02-11] MEDS ORDERED: KETOROLAC 30 MG/ML VIAL IVP ONE (08:45)
[2018-02-11 09:00] LABS: INR 1.1 (0.8-1.4); PROTHROMBIN TIME PATIENT 14.6 SEC (12.2-14.7)
[2018-02-11 09:05] LABS: ALBUMIN 3.5 GM/DL (3.2-4.5); BILIRUBIN,DIRECT 0.4 MG/DL (0.0-0.3); BILIRUBIN,INDIRECT 0.4 MG/DL; BILIRUBIN,TOTAL 0.8 MG/DL (0.1-1.0)
[2018-02-11 12:00] VITALS: BP 131/58
[2018-02-11] MEDS ORDERED: ACETAMINOPHEN 500 MG TAB (TYLENOL) ONE (12:22)
[2018-02-11] MEDS: NS W/KCL 20 MEQ/L 1,000 ML IV SCH ×3 (12:29→23:20)
[2018-02-11] MEDS ORDERED: DULA0.75 SC (13:14)
[2018-02-11] MEDS ORDERED: POTA-51 PO (13:14)
[2018-02-11] MEDS ORDERED: METF-397 PO (13:14)
[2018-02-11] MEDS ORDERED: INSU100I29 SC (13:14)
[2018-02-11] MEDS ORDERED: METO5TAB6 PO (13:14)
[2018-02-11] MEDS ORDERED: FLU QUADRIvalent (5+ YOA) 2018-2019 (AFLURIA) 0.5 ML IM ONE (13:15)
[2018-02-11] MEDS ORDERED: morphine INJ 4 MG/ML 1 ML (VIAL/SYRINGE) IVP NR (13:15)
[2018-02-11] MEDS ORDERED: FURO40TA4 PO (13:17)
[2018-02-11] MEDS ORDERED: NAPR220T66 PO (13:17)
[2018-02-11] MEDS: HYDROcodone/APAP 7.5 MG/325 MG (LORTAB, LORCET PLUS) TABLET PO PRN ×2 (13:38→21:05)
[2018-02-11 15:50] VITALS: BP 99/49
[2018-02-11] MEDS: NS IV 1000 ML 1,000 ML ONE ×2 (16:37→16:43)
[2018-02-11] MEDS: inSUlin ASPART (NovoLOG) 1 UNIT/0.01 ML (CHARGE PER UNIT) SC SCH ×2 (16:45→21:15)
--- NOTE | 2018-02-11 16:45 | History & Physical ---
History of Present Illness History of Present Illness Reason for visit/HPI left leg cellulitis 47 yo M admitted from the ER for left leg cellulitis and worsening pain- He has chronic woody lymphedema of bilateral legs that he gets cellulitis in on occasion. This is the worst it has been. Onset 2 days ago. He has taken NSAIDs without much relief. He also was diagnosed with Diabetes a couple months ago- but we have gotten it under decent control with current regimen of insulin, with blood sugars running around 110- but since he had became ill blood sugars are in 170s. noted he has had a fever. The left leg pain and cellulitis was rapid in onset. Denies any drainage or injury. Pt is morbidly obese and we have talked about bariatric surgery which would help with most of his chronic issues including his diabetes and lower extremity issues. 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 No history of blood clots. Date of Admission Feb 11, 2018 at 11:09 Date Seen by a Provider: Feb 11, 2018 Time Seen by a Provider: 13:00 I consulted on this patient on 02/11/18 16:39 Attending Physician Kushal Pal MD Admitting Physician Kushal Pal MD Consult Allergies and Home Medications Allergies Coded Allergies: No Known Drug Allergies (Unverified , 10/08/17) Home Medications Amlodipine Besylate 5 Mg Tablet, 5 MG PO DAILY, (Reported) Dulaglutide 0.75 Mg/0.5 Ml Pen.injctr, 0.75 MG SC [place], (Reported) Furosemide 40 Mg Tablet, 40 MG PO DAILY, (Reported) LAST FILLED #60 11-03-17 Insulin Detemir 100 Unit/1 Ml Insuln.pen, 35 UNITS SC BID, (Reported) Lisinopril 20 Mg Tablet, 20 MG PO DAILY, (Reported) Metformin HCl 500 Mg Tablet, 1,000 MG PO DAILY, (Reported) TAKES 2 (500MG) TABLETS Metolazone 5 Mg Tablet, 5 MG PO DAILY, (Reported) Naproxen Sodium 220 Mg Tablet, 440 MG PO DAILY, (Reported) Potassium Chloride 20 Meq Tablet.er, 20 MEQ PO DAILY, (Reported) Patient Home Medication List Home Medication List Reviewed: Yes Past Qwihcnh-Lvoegf-Lyhtyt Hx Patient Social History Alcohol Use: Occasionally Uses Alcohol Beverage of Choice: Beer Recreational Drug Use: No Smoking Status: Never a Smoker Physical Abuse Screen: No Sexual Abuse: No Recent Foreign Travel: No Contact w/other who traveled: No Recent Hopitalizations: No Recent Infectious Disease Expo: No Immunizations Up To Date Pediatric: No Seasonal Allergies Seasonal Allergies: No Surgeries No Respiratory Yes Currently Using CPAP: Yes Currently Using BIPAP: No Cardiovascular Yes Hypertension Neurological No Genitourinary No Gastrointestinal No Musculoskeletal No Endocrine History of Endocrine Disorders: Yes Endocrine Disorders: Diabetes, Insulin dep Are Your Blood Sugars Over 250: No HEENT History of HEENT Disorders: No Cancer No Did You Recieve Any Treatments: No Psychosocial History of Psychiatric Problem: No Integumentary History of Skin or Integumenta: Yes (POSSIBLE CELLULITIS 02/11/18) Skin/Integumentary Disorders: Recent Skin Changes Blood Transfusions History of Blood Disorders: No Family Medical History Family Hx: Cardiovascular disease 19 FATHER (CABG AGE 60 ) 19 MOTHER, Onset:60 years & older Review of Systems Review of Systems General: Chills (fever), Fatigue HEENT: No Head Aches, No Visual Changes Pulmonary: No Dyspnea, No Cough Cardiovascular: No: Chest Pain, Palpitations Gastrointestinal: No: Nausea, Vomiting Genitourinary: No Dysuria, No Frequency Musculoskeletal: leg pain (left); No: neck pain, shoulder pain Neurological: Weakness; No: Numbness, Confusion Physical Exam Vital Signs Vital Signs - First Documented 02/11/18 07:27 Temp 98.9 Pulse 102 Resp 18 B/P (MAP) 105/63 (77) Pulse Ox 96 O2 Delivery Room Air Capillary Refill : Less Than 3 Seconds Height, Weight, BMI Height: 6'2.00" Weight: 485lbs. 9.0oz. [id number]; 62.3 BMI Method:Stated General Appearance: WD/WN, Mild Distress (left leg pain) HEENT: PERRL/EOMI Neck: Non Tender, Supple Respiratory: Chest Non Tender, Lungs Clear, Normal Breath Sounds Cardiovascular: Regular Rate, Rhythm, Tachycardia Gastrointestinal: Non Tender Rectal: Deferred Back: Normal Inspection Extremity: Calf Tenderness (left- hot to touch- woody edema- erythema- cellulitis) Neurologic/Psychiatric: Alert, Oriented x3 Skin: Warm/Dry (see above left leg) Lymphatic: No Adenopathy Assessment/Plan Assessment/Plan Admission Dx left leg cellulitis Admission Status: Inpatient Order (span 2 midnights) Reason for Inpatient Admission: sepsis due to extensive left leg cellulitis requiring IV antibiotics and IVF- Assessment and Plan 47 yo M sepsis due to left leg cellulitis- IVF, IV ceftriaxone -pain control. (I87.2) Venous insufficiency (chronic) (peripheral)- elevate legs, weight loss recommended (E66.01) Morbid (severe) obesity due to excess calories- weight loss recommended- consider bariatric surgery (G47.39) Other sleep apnea- (I10) Essential (primary) hypertension- blood pressure low- will hold BP medications. (E11.9) Type 2 diabetes mellitus- continue insulin regimen (K21.9) Gastro-esophageal reflux disease without esophagitis - monitor symptoms. Dispo: admitted for left leg cellulitis- patient's big complaint is left leg pain/warm to to uch- no issues breathing or chest pain. will help with pain with 4mg morphine x1- then hydrocodone 7.5mg/325mg q6hr prn. -will need to monitor blood pressure as morphine likely decreased it- Update-notified at 1636, by Anabel of SBP of 90- will bolus 1L NS and recheck blood pressure- pt is acting normal- pain is under better control with the morphine. will need lovenox BID for dvt ppx Clinical Quality Measures DVT/VTE Risk/Contraindication: Risk Factor Score Per Nursin RFS Level Per Nursing on Admit: 4+=Very High Sepsis: Within 3hrs of presentation: Admin fluids, Admin 30ml/kg IBW due to BMI>30 ( had decent blood pressures until after morphine was administered- 1 L bolus NS was given at this time, with previous 2L bolus in ER, with SBP improved to >100. ), Admin ABX, Blood cultures prior to ABX's, Focus exam (cap refill <3 seconds, pulse high 90s, alert, oriented- only complaint is his leg hurts, blood pressure lower after morphine- stable pt), Lactate level KUSHAL PAL MD Feb 11, 2018 16:45
[2018-02-11] MEDS: ENOXAPARIN 60 MG/0.6 ML (LOVENOX) SYR SC SCH (17:29)
[2018-02-11] MEDS: KETOROLAC 30 MG/ML VIAL IVP PRN (18:23)
[2018-02-11 19:20] VITALS: BP 105/48
[2018-02-11] MEDS ORDERED: cefTRIAXone FOR IV USE 1,000 MG in NS (IVPB) 50 ML IV NR (21:00)
[2018-02-11] MEDS: ACETAMINOPHEN 500 MG TAB (TYLENOL) PO PRN (21:05)
[2018-02-11] MEDS: inSUlin DETERMIR 1 UNIT/0.01 ML (LEVEMIR) CHARGE PER UNIT SQ SCH (21:22)
[2018-02-12] VITALS (7 sets, daily range): BP systolic 100–144; BP diastolic 46–65
[2018-02-12] MEDS: NS W/KCL 20 MEQ/L 1,000 ML IV SCH ×4 (04:50→21:39)
[2018-02-12] MEDS: ENOXAPARIN 60 MG/0.6 ML (LOVENOX) SYR SC SCH ×2 (04:53→17:46)
[2018-02-12] MEDS: HYDROcodone/APAP 7.5 MG/325 MG (LORTAB, LORCET PLUS) TABLET PO PRN ×3 (04:54→21:39)
[2018-02-12] MEDS: inSUlin ASPART (NovoLOG) 1 UNIT/0.01 ML (CHARGE PER UNIT) SC SCH ×4 (05:41→21:33)
[2018-02-12 06:29] LABS: BASOPHILS % (AUTO) 0 % (0-10); EOSINOPHILS # (AUTO) 0.1 10^3/uL (0.0-0.3); EOSINOPHILS % (AUTO) 0 % (0-10); HEMATOCRIT 33 % (40-54); LYMPHOCYTES # (AUTO) 1.1 X 10^3 (1.0-4.0); LYMPHOCYTES % (AUTO) 6 % (12-44); MEAN CORPUSCULAR HEMOGLOBIN 32 PG (25-34); MEAN CORPUSCULAR HGB CONC 33 G/DL (32-36); MEAN CORPUSCULAR VOLUME 97 FL (80-99); MONOCYTES # (AUTO) 1.5 X 10^3 (0.0-1.0); MONOCYTES % (AUTO) 8 % (0-12); NEUTROPHILS # (AUTO) 15.3 X 10^3 (1.8-7.8); NEUTROPHILS % (AUTO) 85 % (42-75); PLATELET COUNT 169 10^3/uL (130-400); RED BLOOD COUNT 3.41 10^6/uL (4.35-5.85); RED CELL DISTRIBUTION WIDTH 13.8 % (10.0-14.5); WHITE BLOOD COUNT 17.9 10^3/uL (4.3-11.0)
[2018-02-12 06:56] LABS: BUN/CREATININE RATIO 29; CALCIUM 8.1 MG/DL (8.5-10.1); CARBON DIOXIDE 18 MMOL/L (21-32); CHLORIDE 110 MMOL/L (98-107); GFR ESTIMATED > 60; GLUCOSE 148 MG/DL (70-105); POTASSIUM 3.7 MMOL/L (3.6-5.0); SODIUM 137 MMOL/L (135-145)
--- NOTE | 2018-02-12 07:09 | Progress Note (SOAP) ---
Subjective Subjective Date Seen by Provider: Feb 12, 2018 Time Seen by Provider: 08:05 47 yo M admitted for sepsis due to cellulitis- fevers appear to be improving - will see what today temps are. repeat lactic acid yesterday afternoon was ~1.2, slight improvement WBC down to 17K Given pt habitus his blood pressure checks are being done on his wrist- usually this results in a higher reading- but he has been with a systolic of 100, MAP > 65. Pt reports he is doing better- pain under better control- Going to the bathroom is a task though due to his left leg. Review of Systems General: Chills (fever), Fatigue HEENT: No Head Aches, No Visual Changes Pulmonary: No Dyspnea, No Cough Cardiovascular: No: Chest Pain, Palpitations Gastrointestinal: No: Nausea, Vomiting Genitourinary: No Dysuria, No Frequency Musculoskeletal: leg pain (left); No: neck pain, shoulder pain Neurological: Weakness; No: Numbness, Confusion Objective Exam Vital Signs Vital Signs Date Time Temp Pulse Resp B/P (MAP) Pulse Ox O2 Delivery O2 Flow Rate FiO2 02/12/18 03:45 99.3 98 20 109/49 (69) 98 Room Air 02/12/18 00:00 99.2 103 22 100/46 (64) 94 Room Air 02/11/18 22:20 100.9 02/11/18 22:14 100.9 02/11/18 19:20 101.5 107 22 105/48 (67) 95 Room Air 02/11/18 15:50 101.6 100 24 99/49 (66) 98 Room Air 02/11/18 14:00 Room Air 02/11/18 12:28 100.2 02/11/18 12:00 100.2 97 18 131/58 (82) Room Air 02/11/18 11:20 98.7 102 20 127/60 99 Room Air 02/11/18 09:37 98.7 103 20 107/38 98 Room Air 02/11/18 07:27 98.9 102 18 105/63 (77) 96 Room Air I & O 02/12/18 07:00 Intake Total 9480 ml Output Total 0 ml Balance 9480 ml General Appearance: WD/WN, Mild Distress (left leg pain) HEENT: PERRL/EOMI Neck: Non Tender, Supple Respiratory: Chest Non Tender, Lungs Clear, Normal Breath Sounds Cardiovascular: Regular Rate, Rhythm, Tachycardia Gastrointestinal: Non Tender Rectal: Deferred Back: Normal Inspection Extremity: Calf Tenderness (left- hot to touch- woody edema- erythema- cellulitis) Neurologic/Psychiatric: Alert, Oriented x3 Skin: Warm/Dry (see above left leg) Lymphatic: No Adenopathy Results Lab Laboratory Tests 02/11/18 07:45: White Blood Count 19.9H, Red Blood Count 3.80L, Hemoglobin 12.4L, Hematocrit 37L , Mean Corpuscular Volume 96, Mean Corpuscular Hemoglobin 33, Mean Corpuscular Hemoglobin Concent 34, Red Cell Distribution Width 13.4, Platelet Count 220, Mean Platelet Volume 10.5H, Neutrophils (%) (Auto) 91H, Lymphocytes (%) (Auto) 5L, Monocytes (%) (Auto) 4, Eosinophils (%) (Auto) 0, Basophils (%) (Auto) 0, Neutrophils # (Auto) 18.1H, Lymphocytes # (Auto) 1.0, Monocytes # (Auto) 0.8, Eosinophils # (Auto) 0.1, Basophils # (Auto) 0.0, Neutrophils % (Manual) 72, Lymphocytes % (Manual) 2, Monocytes % (Manual) 3, Eosinophils % (Manual) 0, Basophils % (Manual) 0, Band Neutrophils 23, Blood Morphology Comment NORMAL, Prothrombin Time 14.6, INR Comment 1.1, Activated Partial Thromboplast Time 41H , D-Dimer 0.92H, Sodium Level 139, Potassium Level 3.5L, Chloride Level 107, Carbon Dioxide Level 23, Anion Gap 9, Blood Urea Nitrogen 29H, Creatinine 1.08, Estimat Glomerular Filtration Rate > 60, BUN/Creatinine Ratio 27, Glucose Level 160H, Calcium Level 9.2, Total Bilirubin 0.8, Direct Bilirubin 0.4H, Indirect Bilirubin 0.4, Aspartate Amino Transf (AST/SGOT) 33, Alanine Aminotransferase ( ALT/SGPT) 34, Alkaline Phosphatase 80, C-Reactive Protein High Sensitivity 33.54H, Total Protein 7.0, Albumin 3.5 02/11/18 08:52: Lactic Acid Level 1.62 02/11/18 16:31: Glucometer 121H 02/11/18 16:40: Lactic Acid Level 1.23 9/26/18 21:10: Glucometer 146H 02/12/18 05:20: Glucometer 142H 02/12/18 06:20: White Blood Count 17.9H, Red Blood Count 3.41L, Hemoglobin 11.0L, Hematocrit 33L , Mean Corpuscular Volume 97, Mean Corpuscular Hemoglobin 32, Mean Corpuscular Hemoglobin Concent 33, Red Cell Distribution Width 13.8, Platelet Count 169, Mean Platelet Volume 10.0, Neutrophils (%) (Auto) 85H, Lymphocytes (%) (Auto) 6L , Monocytes (%) (Auto) 8, Eosinophils (%) (Auto) 0, Basophils (%) (Auto) 0, Neutrophils # (Auto) 15.3H, Lymphocytes # (Auto) 1.1, Monocytes # (Auto) 1.5H, Eosinophils # (Auto) 0.1, Basophils # (Auto) 0.0, Sodium Level 137, Potassium Level 3.7, Chloride Level 110H, Carbon Dioxide Level 18L, Anion Gap 9, Blood Urea Nitrogen 32H, Creatinine 1.10, Estimat Glomerular Filtration Rate > 60, BUN /Creatinine Ratio 29, Glucose Level 148H, Calcium Level 8.1L Assessment/Plan Assessment/Plan Admission Dx left leg cellulitis Admission Status: Inpatient Order (span 2 midnights) Assessment and Plan 47 yo M sepsis due to left leg cellulitis- IVF, IV ceftriaxone -pain control. (I87.2) Venous insufficiency (chronic) (peripheral)- elevate legs, weight loss recommended (E66.01) Morbid (severe) obesity due to excess calories- weight loss recommended- consider bariatric surgery (G47.39) Other sleep apnea- (I10) Essential (primary) hypertension- blood pressure low- will hold BP medications. (E11.9) Type 2 diabetes mellitus- continue insulin regimen (K21.9) Gastro-esophageal reflux disease without esophagitis - monitor symptoms. Dispo: admitted for left leg cellulitis- appears to be improving- pain under better control- continue rocephin- would like him to be 24 hours fever free prior to switching to PO cefdinir. --Awaiting blood cultures as well. lovenox BID for dvt ppx Admission Dx left leg cellulitis Clinical Quality Measures Admission Status Admission Dx left leg cellulitis DVT/VTE Risk/Contraindication: Risk Factor Score Per Nursin RFS Level Per Nursing on Admit: 4+=Very High KAE,HARDY C MD Feb 12, 2018 07:09
[2018-02-12] MEDS ORDERED: NS IV 1000 ML 1,000 ML IV SCH (08:15)
[2018-02-12] MEDS: inSUlin DETERMIR 1 UNIT/0.01 ML (LEVEMIR) CHARGE PER UNIT SQ SCH ×2 (08:42→21:39)
[2018-02-12] MEDS ORDERED: NS IV 1000 ML 1,000 ML IV ONE (08:45)
[2018-02-12] MEDS: KETOROLAC 30 MG/ML VIAL IVP PRN ×2 (08:52→16:18)
[2018-02-12] MEDS ORDERED: cefTRIAXone FOR IV USE 1,000 MG in NS (IVPB) 50 ML IV SCH (09:00)
[2018-02-12] MEDS ORDERED: lisINopril 20 MG (PRINIVIL) TABLET PO SCH (09:00)
[2018-02-12] MEDS ORDERED: amLODIPine 5 MG (NORVASC) TAB PO SCH (09:00)
[2018-02-12] MEDS: ACETAMINOPHEN 500 MG TAB (TYLENOL) PO PRN (13:11)
[2018-02-12] MEDS: CATHETER FLUSH 10 ML SYR IV PRN (16:18)
[2018-02-13 00:06] VITALS: BP 121/66
[2018-02-13] MEDS: NS W/KCL 20 MEQ/L 1,000 ML IV SCH ×3 (02:56→16:29)
[2018-02-13 04:07] VITALS: BP 116/53
[2018-02-13] MEDS: inSUlin ASPART (NovoLOG) 1 UNIT/0.01 ML (CHARGE PER UNIT) SC SCH ×4 (05:23→21:02)
[2018-02-13] MEDS: ENOXAPARIN 60 MG/0.6 ML (LOVENOX) SYR SC SCH ×2 (05:24→17:27)
[2018-02-13] MEDS: HYDROcodone/APAP 7.5 MG/325 MG (LORTAB, LORCET PLUS) TABLET PO PRN ×3 (05:24→19:58)
[2018-02-13] MEDS ORDERED: PIPERACILLIN SODIUM/TAZOBACTAM 4.5 GM in NS (IVPB) 100 ML IV NR (07:30)
[2018-02-13 08:00] VITALS: BP 137/62
[2018-02-13 08:12] LABS: BASOPHILS % (AUTO) 0 % (0-10); EOSINOPHILS % (AUTO) 0 % (0-10); HEMATOCRIT 35 % (40-54); LYMPHOCYTES # (AUTO) 1.4 X 10^3 (1.0-4.0); LYMPHOCYTES % (AUTO) 7 % (12-44); MEAN CORPUSCULAR HEMOGLOBIN 33 PG (25-34); MEAN CORPUSCULAR HGB CONC 34 G/DL (32-36); MEAN CORPUSCULAR VOLUME 96 FL (80-99); MEAN PLATELET VOLUME 10.1 FL (7.4-10.4); MONOCYTES # (AUTO) 1.4 X 10^3 (0.0-1.0); MONOCYTES % (AUTO) 7 % (0-12); NEUTROPHILS % (AUTO) 87 % (42-75); PLATELET COUNT 181 10^3/uL (130-400); RED BLOOD COUNT 3.69 10^6/uL (4.35-5.85); RED CELL DISTRIBUTION WIDTH 13.7 % (10.0-14.5); WHITE BLOOD COUNT 20.8 10^3/uL (4.3-11.0)
[2018-02-13 08:31] LABS: ALBUMIN 2.9 GM/DL (3.2-4.5); BUN/CREATININE RATIO 19; CALCIUM 8.2 MG/DL (8.5-10.1); CARBON DIOXIDE 19 MMOL/L (21-32); CHLORIDE 108 MMOL/L (98-107); CREATININE SERUM 0.97 MG/DL (0.60-1.30); GFR ESTIMATED > 60; GLUCOSE 153 MG/DL (70-105); PHOSPHORUS 1.6 MG/DL (2.3-4.7); POTASSIUM 3.5 MMOL/L (3.6-5.0); SODIUM 136 MMOL/L (135-145)
[2018-02-13] MEDS: inSUlin DETERMIR 1 UNIT/0.01 ML (LEVEMIR) CHARGE PER UNIT SQ SCH ×2 (08:49→21:46)
[2018-02-13 12:00] VITALS: BP 153/65
--- NOTE | 2018-02-13 12:17 | Progress Note (SOAP) ---
Subjective Subjective Date Seen by Provider: Feb 13, 2018 Time Seen by Provider: 06:35 47 yo M admitted for sepsis due to cellulitis- -Pt doing better overall- leg improved with AKIKO wraps blister broke and oozing. Still a task for him to get up and go to restroom. Slow leg improvement due to his chronic venous insufficiency. WBC are elevated Blood pressure is much improved. No Fevers overnight. Review of Systems General: Chills (fever), Fatigue HEENT: No Head Aches, No Visual Changes Pulmonary: No Dyspnea, No Cough Cardiovascular: No: Chest Pain, Palpitations Gastrointestinal: No: Nausea, Vomiting Genitourinary: No Dysuria, No Frequency Musculoskeletal: leg pain (left); No: neck pain, shoulder pain Neurological: Weakness; No: Numbness, Confusion Objective Exam Vital Signs Vital Signs Date Time Temp Pulse Resp B/P (MAP) Pulse Ox O2 Delivery O2 Flow Rate FiO2 02/13/18 08:00 Room Air 02/13/18 08:00 98.7 100 20 137/62 (87) 97 Room Air 02/13/18 04:07 98.6 115 18 116/53 (74) 95 Room Air 02/13/18 02:56 Room Air 02/13/18 00:06 97.6 108 19 121/66 (84) 93 Room Air 02/12/18 21:20 100.3 106 24 106/52 (70) 96 Room Air 02/12/18 16:20 102.1 114 22 131/61 (84) 97 Room Air 02/12/18 14:51 98.6 108 16 121/63 (82) 96 Room Air 02/12/18 13:11 99.2 I & O 02/13/18 07:00 Intake Total 7832 ml Balance 7832 ml General Appearance: WD/WN, Mild Distress (left leg pain) HEENT: PERRL/EOMI Neck: Non Tender, Supple Respiratory: Chest Non Tender, Lungs Clear, Normal Breath Sounds Cardiovascular: Regular Rate, Rhythm, Tachycardia Gastrointestinal: Non Tender Rectal: Deferred Back: Normal Inspection Extremity: Calf Tenderness (left- hot to touch- woody edema- erythema- cellulitis) Neurologic/Psychiatric: Alert, Oriented x3 Skin: Warm/Dry (see above left leg) Lymphatic: No Adenopathy Results Lab Laboratory Tests 02/12/18 16:21: Glucometer 149H 02/12/18 21:19: Glucometer 174H 02/13/18 05:17: Glucometer 141H 02/13/18 08:05: White Blood Count 20.8H, Red Blood Count 3.69L, Hemoglobin 12.0L, Hematocrit 35L , Mean Corpuscular Volume 96, Mean Corpuscular Hemoglobin 33, Mean Corpuscular Hemoglobin Concent 34, Red Cell Distribution Width 13.7, Platelet Count 181, Mean Platelet Volume 10.1, Neutrophils (%) (Auto) 87H, Lymphocytes (%) (Auto) 7L , Monocytes (%) (Auto) 7, Eosinophils (%) (Auto) 0, Basophils (%) (Auto) 0, Neutrophils # (Auto) 18.0H, Lymphocytes # (Auto) 1.4, Monocytes # (Auto) 1.4H, Eosinophils # (Auto) 0.0, Basophils # (Auto) 0.0, Sodium Level 136, Potassium Level 3.5L, Chloride Level 108H, Carbon Dioxide Level 19L, Anion Gap 9, Blood Urea Nitrogen 18, Creatinine 0.97, Estimat Glomerular Filtration Rate > 60, BUN/ Creatinine Ratio 19, Glucose Level 153H, Calcium Level 8.2L, Phosphorus Level 1.6L, Albumin 2.9L 02/13/18 11:07: Glucometer 160H Microbiology 02/11/18 Blood Culture - Preliminary, Resulted No growth Assessment/Plan Assessment/Plan Admission Dx left leg cellulitis Assessment and Plan 47 yo M sepsis due to left leg cellulitis- IVF, IV ceftriaxone- will discontinue starting zosyn 02/13/18 as pt is Diabetic with increased risk for polymicrobial. (I87.2) Venous insufficiency (chronic) (peripheral)- elevate legs, weight loss recommended (E66.01) Morbid (severe) obesity due to excess calories- weight loss recommended- consider bariatric surgery (G47.39) Other sleep apnea- (I10) Essential (primary) hypertension- resume BP medications within the next couple days if blood pressure becomes elevated. (E11.9) Type 2 diabetes mellitus- continue insulin regimen (K21.9) Gastro-esophageal reflux disease without esophagitis - monitor symptoms. Dispo: admitted for left leg cellulitis- appears to be improving- pain under better control- stepping up therapy to zosyn since he will likely be here over the weekend. Monitor for fevers and recheck CBC in AM. --Awaiting blood cultures - NGTD lovenox BID for dvt ppx Admission Dx left leg cellulitis Clinical Quality Measures Admission Status Admission Dx left leg cellulitis DVT/VTE Risk/Contraindication: Risk Factor Score Per Nursin RFS Level Per Nursing on Admit: 4+=Very High HARDY PAL MD Feb 13, 2018 12:17
[2018-02-13] MEDS: ACETAMINOPHEN 500 MG TAB (TYLENOL) PO PRN (13:23)
[2018-02-13] MEDS: KETOROLAC 30 MG/ML VIAL IVP PRN (14:39)
[2018-02-13] MEDS: PIPERACILLIN SODIUM/TAZOBACTAM 4.5 GM in NS (IVPB) 100 ML IV SCH ×2 (14:43→21:47)
[2018-02-13 15:45] VITALS: BP 129/60
[2018-02-13 19:30] VITALS: BP 136/63
[2018-02-14] MEDS: NS W/KCL 20 MEQ/L 1,000 ML IV SCH ×2 (00:25→08:23)
[2018-02-14 00:36] VITALS: BP 124/57
[2018-02-14 04:00] VITALS: BP 127/56
[2018-02-14] MEDS: KETOROLAC 30 MG/ML VIAL IVP PRN (04:12)
[2018-02-14 05:38] LABS: BASOPHILS % (AUTO) 0 % (0-10); EOSINOPHILS # (AUTO) 0.2 10^3/uL (0.0-0.3); EOSINOPHILS % (AUTO) 1 % (0-10); HEMATOCRIT 34 % (40-54); HEMOGLOBIN 11.3 G/DL (13.3-17.7); LYMPHOCYTES # (AUTO) 1.4 X 10^3 (1.0-4.0); LYMPHOCYTES % (AUTO) 6 % (12-44); MEAN CORPUSCULAR HEMOGLOBIN 32 PG (25-34); MEAN CORPUSCULAR HGB CONC 33 G/DL (32-36); MEAN CORPUSCULAR VOLUME 96 FL (80-99); MEAN PLATELET VOLUME 10.4 FL (7.4-10.4); MONOCYTES # (AUTO) 1.7 X 10^3 (0.0-1.0); MONOCYTES % (AUTO) 8 % (0-12); NEUTROPHILS # (AUTO) 18.7 X 10^3 (1.8-7.8); NEUTROPHILS % (AUTO) 85 % (42-75); PLATELET COUNT 219 10^3/uL (130-400); RED BLOOD COUNT 3.58 10^6/uL (4.35-5.85); RED CELL DISTRIBUTION WIDTH 14.2 % (10.0-14.5); WHITE BLOOD COUNT 21.9 10^3/uL (4.3-11.0)
[2018-02-14 05:57] LABS: BUN/CREATININE RATIO 19; CALCIUM 8.2 MG/DL (8.5-10.1); CARBON DIOXIDE 17 MMOL/L (21-32); CHLORIDE 110 MMOL/L (98-107); CREATININE SERUM 0.89 MG/DL (0.60-1.30); GFR ESTIMATED > 60; GLUCOSE 137 MG/DL (70-105); POTASSIUM 3.4 MMOL/L (3.6-5.0); SODIUM 138 MMOL/L (135-145)
[2018-02-14] MEDS: PIPERACILLIN SODIUM/TAZOBACTAM 4.5 GM in NS (IVPB) 100 ML IV SCH ×3 (05:58→22:56)
[2018-02-14] MEDS: ENOXAPARIN 60 MG/0.6 ML (LOVENOX) SYR SC SCH ×2 (05:58→16:43)
[2018-02-14] MEDS: inSUlin ASPART (NovoLOG) 1 UNIT/0.01 ML (CHARGE PER UNIT) SC SCH ×4 (06:08→20:54)
[2018-02-14 08:00] VITALS: BP 120/58
[2018-02-14] MEDS: inSUlin DETERMIR 1 UNIT/0.01 ML (LEVEMIR) CHARGE PER UNIT SQ SCH ×2 (08:23→20:55)
[2018-02-14] MEDS: HYDROcodone/APAP 7.5 MG/325 MG (LORTAB, LORCET PLUS) TABLET PO PRN (08:25)
[2018-02-14] MEDS ORDERED: VANCOMYCIN INJECTION 1,000 MG in NS (IVPB) 250 ML IV SCH (12:00)
[2018-02-14] MEDS ORDERED: VANCOMYCIN INJECTION 2,000 MG in NS IV 500 ML 500 ML IV NR (12:09)
--- NOTE | 2018-02-14 12:33 | Progress Note-Hospitalist ---
Subjective HPI/CC On Admission Date Seen by Provider: Feb 14, 2018 Time Seen by Provider: 11:00 Subjective/Events-last exam Left leg is worse Rocephin was changed to Zosyn so we'll add thank Conferred with Dr. Kiran and he will see me in consultation Blister formation noted Will hold off on compression with Jeffrey bandage Change pain medications No BM so started meds Lovenox noted Review of Systems Musculoskeletal: leg pain Focused Exam Lactate Level 02/11/18 16:40: Lactic Acid Level 1.23 Objective Exam Vital Signs Vital Signs Date Time Temp Pulse Resp B/P (MAP) Pulse Ox O2 Delivery O2 Flow Rate FiO2 02/14/18 08:00 Room Air 02/14/18 04:00 100.4 103 20 127/56 (79) 95 Capillary Refill : Less Than 3 Seconds General Appearance: No Apparent Distress, WD/WN, Chronically ill, Obese Respiratory: Chest Non Tender, Lungs Clear, Normal Breath Sounds, No Accessory Muscle Use, No Respiratory Distress Cardiovascular: Regular Rate, Rhythm, No Edema, No Gallop, No JVD, No Murmur, Normal Peripheral Pulses Extremity: Other (left leg with extensive redness and blisters and pain from knee to foot and rising redness to groin) Neurologic/Psychiatric: Alert, Oriented x3, No Motor/Sensory Deficits, Normal Mood/Affect Results/Procedures Lab Laboratory Tests 02/14/18 05:04 Patient resulted labs reviewed. Assessment/Plan Assessment and Plan Assess & Plan/Chief Complaint left leg cellulitis worsened JEFERSON DM Scrotal edema Plan: Add Vanc Consult Dr Kiran HLIVF Lasix one dose Diagnosis/Problems Diagnosis/Problems (1) Cellulitis Status: Acute Qualifiers: Site of cellulitis: extremity Site of cellulitis of extremity: lower extremity Laterality: left Qualified Codes: L03.116 - Cellulitis of left lower limb (2) Sepsis Status: Acute Qualifiers: Sepsis type: sepsis due to unspecified organism Qualified Codes: A41.9 - Sepsis, unspecified organism (3) JEFERSON on CPAP Status: Chronic (4) Morbid obesity with BMI of 60.0-69.9, adult Status: Chronic (5) Constipation Status: Acute Qualifiers: Constipation type: slow transit constipation Qualified Codes: K59.01 - Slow transit constipation (6) Hypokalemia Status: Acute (7) Scrotal edema Status: Acute (8) Diabetes type 2, uncontrolled Status: Chronic Qualifiers: Glycemic state: with hyperglycemia Qualified Codes: E11.65 - Type 2 diabetes mellitus with hyperglycemia Clinical Quality Measures DVT/VTE Risk/Contraindication: Risk Factor Score Per Nursin RFS Level Per Nursing on Admit: 4+=Very High ISABELLA OLIVER DO Feb 14, 2018 12:33
[2018-02-14] MEDS: DOCUSATE SODIUM 100 MG (COLACE) CAP PO SCH ×2 (12:48→20:42)
[2018-02-14] MEDS: SENNA W/DOCUSATE (SENOKOT S) TABLET PO SCH ×2 (12:49→20:42)
[2018-02-14] MEDS: POLYETHYLENE GLYCOL 17 GM (MIRALAX) PACK PO SCH ×2 (12:49→20:42)
[2018-02-14] MEDS: fentaNYL INJECTION 100 MCG/2 ML AMP IVP PRN (12:50)
[2018-02-14] MEDS ORDERED: KCL 10 MEQ TAB (MICRO K) PO NR (13:30)
--- NOTE | 2018-02-14 13:43 | Consultation ---
History of Present Illness History of Present Illness Patient Consulted On(joshua/time) 02/14/18 13:37 Time Seen by Provider: 13:21 History of Present Illness Surgery asked to consult regarding Cellulitis. HPI per ED on admission 02/11: The patient presents to the ER by private conveyance with a chief complaint of this morning he started noticing increased redness swelling and pain in his left lower extremity. He has a history of cellulitis but no history of DVTs. He is not having any exertional dyspnea, shortness of breath, chest pain, cough. The increased pain today is different from his normal saline as presentation. He did take some Aleve this morning for the pain about an hour and a half prior to coming. When he got home yesterday his thought he looked hot and took his temperature and told him it was 104.0. He is not having any nausea sweats or chills. He does not smoke and does not have any history of recent immobilization, surgery or injury to his left lower extremity. When I saw pt today he states the leg is worse and pain is increasing. He notes the redness is spreading up leg and getting darker where it initially started. He denies any trauma to the area, no puncture wounds, and did not see any "pimples" or anything else on the leg. He states this has happened before, but "usually I see my doc and he puts me on some ABX and it goes away". Rates the pain as 4 out of 10; dull constant ache. Allergies and Home Medications Allergies Coded Allergies: No Known Drug Allergies (Unverified , 10/08/17) Home Medications Amlodipine Besylate 5 Mg Tablet, 5 MG PO DAILY, (Reported) Dulaglutide 0.75 Mg/0.5 Ml Pen.injctr, 0.75 MG SC [place], (Reported) Furosemide 40 Mg Tablet, 40 MG PO DAILY, (Reported) LAST FILLED #60 11-03-17 Insulin Detemir 100 Unit/1 Ml Insuln.pen, 35 UNITS SC BID, (Reported) Lisinopril 20 Mg Tablet, 20 MG PO DAILY, (Reported) Metformin HCl 500 Mg Tablet, 1,000 MG PO DAILY, (Reported) TAKES 2 (500MG) TABLETS Metolazone 5 Mg Tablet, 5 MG PO DAILY, (Reported) Naproxen Sodium 220 Mg Tablet, 440 MG PO DAILY, (Reported) Potassium Chloride 20 Meq Tablet.er, 20 MEQ PO DAILY, (Reported) Patient Home Medication List Home Medication List Reviewed: Yes Past [id number]-Mmnvkh Hx Patient Social History Alcohol Use: Occasionally Uses Recreational Drug Use: No Smoking Status: Never a Smoker Recent Foreign Travel: No Contact w/Someone Who Travel: No Recent Infectious Disease Expo: No Recent Hopitalizations: No Physical Abuse Screen: No Sexual Abuse: No Immunizations Up To Date PED Vaccines UTD: No Seasonal Allergies Seasonal Allergies: No Surgeries History of Surgeries: No Respiratory History of Respiratory Disorde: Yes Respiratory Disorders: Sleep Apnea Cardiovascular History of Cardiac Disorders: Yes Cardiac Disorders: Hypertension Neurological History of Neurological Disord: No Genitourinary History of Genitourinary Disor: No Gastrointestinal History of Gastrointestinal Di: No Musculoskeletal History of Musculoskeletal Dis: No Endocrine History of Endocrine Disorders: Yes Endocrine Disorders: Diabetes, Insulin dep HEENT History of HEENT Disorders: No Cancer History of Cancer: No Psychosocial History of Psychiatric Problem: No Integumentary History of Skin or Integumenta: Yes (POSSIBLE CELLULITIS 02/11/18) Skin/Integumentary Disorders: Recent Skin Changes Blood Transfusions History of Blood Disorders: No Family Medical History Significant Family History: CAD Over 55 Years Old, Diabetes (parents), Hypertension (parents) Family Medial History: Cardiovascular disease 19 FATHER (CABG AGE 60 ) 19 MOTHER, Onset:60 years & older Review of Systems-General Constitutional: chills, diaphoresis, fever, weakness EENTM: No blurred vision, No double vision, No mouth pain, No mouth swelling, No epistaxis Respiratory: No cough, No dyspnea on exertion Cardiovascular: No chest pain; edema; No palpitations Gastrointestinal: No abdominal pain, No constipation, No diarrhea, No hematemesis Genitourinary: No dysuria, No frequency, No hematuria Musculoskeletal: joint pain, joint swelling, muscle stiffness Skin: change in color; No change in hair/nails; lesions, other Psychiatric/Neurological: Denies Anxiety, Denies Depressed, Denies Seizure, Denies Tremors Other pt denies any abnormal bruising or bleeding. Physical Exam-General Problems Physical Exam Vital Signs Vital Signs - First Documented 02/11/18 07:27 Temp 98.9 Pulse 102 Resp 18 B/P (MAP) 105/63 (77) Pulse Ox 96 O2 Delivery Room Air Capillary Refill : Less Than 3 Seconds General Appearance: WD/WN, obese (super morbidly obese) Eyes: Bilateral Eye PERRL, Bilateral Eye EOMI HEENT: pharynx normal; No scleral icterus (R), No scleral icterus (L) Neck: non-tender, full range of motion, supple, normal inspection Respiratory: chest non-tender, lungs clear, normal breath sounds, no respiratory distress, no accessory muscle use Cardiovascular: regular rate, rhythm, no murmur Gastrointestinal: normal bowel sounds, non tender, soft, no organomegaly Back: no CVA tenderness, no vertebral tenderness Extremities: other (right lower extremity looks normal, some venous stasis. 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, no motor/sensory deficits, alert, normal mood/affect, oriented x 3 Lymphatic: no adenopathy (neck, axilla or groin) Data Review Labs Laboratory Tests 02/13/18 15:45: Glucometer 161H 02/13/18 20:39: Glucometer 155H 02/14/18 05:04: White Blood Count 21.9H, Red Blood Count 3.58L, Hemoglobin 11.3L, Hematocrit 34L , Mean Corpuscular Volume 96, Mean Corpuscular Hemoglobin 32, Mean Corpuscular Hemoglobin Concent 33, Red Cell Distribution Width 14.2, Platelet Count 219, Mean Platelet Volume 10.4, Neutrophils (%) (Auto) 85H, Lymphocytes (%) (Auto) 6L , Monocytes (%) (Auto) 8, Eosinophils (%) (Auto) 1, Basophils (%) (Auto) 0, Neutrophils # (Auto) 18.7H, Lymphocytes # (Auto) 1.4, Monocytes # (Auto) 1.7H, Eosinophils # (Auto) 0.2, Basophils # (Auto) 0.0, Sodium Level 138, Potassium Level 3.4L, Chloride Level 110H, Carbon Dioxide Level 17L, Anion Gap 11, Blood Urea Nitrogen 17, Creatinine 0.89, Estimat Glomerular Filtration Rate > 60, BUN/ Creatinine Ratio 19, Glucose Level 137H, Calcium Level 8.2L 02/14/18 11:26: Glucometer 153H Microbiology 02/11/18 Blood Culture - Preliminary, Resulted No growth Assessment/Plan Assessment/Plan Assessment/Plan Left Lower Extremity Cellulits On Zosyn, Vanc started, ordering an US to make sure there is no abscess or air. If any of these signs are found he will need surgery; trying to avoid that. Explained all this to the pt and all questions answered to his satisfaction. (I87.2) Venous insufficiency (chronic) (peripheral)- elevate legs, weight loss recommended (E66.01) Morbid (severe) obesity due to excess calories- weight loss recommended- consider bariatric surgery (G47.39) Other sleep apnea- (I10) Essential (primary) hypertension- resume BP medications within the next couple days if blood pressure becomes elevated. (E11.9) Type 2 diabetes mellitus- continue insulin regimen (K21.9) Gastro-esophageal reflux disease without esophagitis - monitor symptoms. Clinical Quality Measures DVT/VTE Risk/Contraindication: Risk Factor Score Per Nursin RFS Level Per Nursing on Admit: 4+=Very High PONCE KANG DO Feb 14, 2018 13:43
[2018-02-14] MEDS ORDERED: FUROSEMIDE 40 MG/4 ML INJ (LASIX) IVP NR (13:45)
[2018-02-14] MEDS: oxyCODONE/APAP 7.5-325 MG (PERCOCET 7.5) TABLET PO PRN ×2 (14:39→22:26)
--- NOTE | 2018-02-14 14:54 | Diagnostic Imaging Report ---
EXAM: Left lower extremity ultrasound. DATE: February 14, 2018. INDICATION: 47-year-old male, cellulitis. COMPARISON: None. FINDINGS: Targeted ultrasound evaluation was performed at the area of focal concern which is labeled at the level of the left calf. There does appear to be abnormal subcutaneous edema. There is no drainable fluid collection or abscess. There is no sonographically demonstrated mass. IMPRESSION: 1. Nonspecific subcutaneous edema. 2. No sonographically demonstrated drainable fluid collection or mass. Dictated by: Dictated on workstation # [id number]
[2018-02-14 16:10] VITALS: BP 138/64
[2018-02-14] MEDS: ACETAMINOPHEN 500 MG TAB (TYLENOL) PO PRN (16:43)
[2018-02-14] MEDS: VANCOMYCIN INJECTION 1,750 MG in NS IV 500 ML 500 ML IV NR (20:42)
[2018-02-14] MEDS ORDERED: ONDANSETRON 4 MG/2 ML (SDV) Z0FRAN IVP PRN (22:45)
[2018-02-15 00:16] VITALS: BP 117/54
[2018-02-15] MEDS: ENOXAPARIN 60 MG/0.6 ML (LOVENOX) SYR SC SCH ×2 (05:07→17:55)
[2018-02-15] MEDS: PIPERACILLIN SODIUM/TAZOBACTAM 4.5 GM in NS (IVPB) 100 ML IV SCH ×3 (06:03→23:33)
[2018-02-15] MEDS: KCL 10 MEQ TAB (MICRO K) PO SCH (06:04)
[2018-02-15] MEDS: inSUlin ASPART (NovoLOG) 1 UNIT/0.01 ML (CHARGE PER UNIT) SC SCH ×4 (06:04→21:17)
[2018-02-15 06:38] LABS: BASOPHILS % (AUTO) 0 % (0-10); EOSINOPHILS # (AUTO) 0.2 10^3/uL (0.0-0.3); EOSINOPHILS % (AUTO) 1 % (0-10); HEMATOCRIT 33 % (40-54); LYMPHOCYTES # (AUTO) 1.6 X 10^3 (1.0-4.0); LYMPHOCYTES % (AUTO) 7 % (12-44); MEAN CORPUSCULAR HEMOGLOBIN 32 PG (25-34); MEAN CORPUSCULAR HGB CONC 34 G/DL (32-36); MEAN CORPUSCULAR VOLUME 95 FL (80-99); MEAN PLATELET VOLUME 9.8 FL (7.4-10.4); MONOCYTES # (AUTO) 1.6 X 10^3 (0.0-1.0); MONOCYTES % (AUTO) 7 % (0-12); NEUTROPHILS # (AUTO) 20.2 X 10^3 (1.8-7.8); NEUTROPHILS % (AUTO) 86 % (42-75); PLATELET COUNT 223 10^3/uL (130-400); RED BLOOD COUNT 3.44 10^6/uL (4.35-5.85); RED CELL DISTRIBUTION WIDTH 13.8 % (10.0-14.5); WHITE BLOOD COUNT 23.6 10^3/uL (4.3-11.0)
[2018-02-15 07:04] LABS: ALANINE AMINOTRANSFERASE 32 U/L (0-55); ALBUMIN 2.4 GM/DL (3.2-4.5); ALKALINE PHOSPHATASE 144 U/L (40-136); BILIRUBIN,TOTAL 1.7 MG/DL (0.1-1.0); BUN/CREATININE RATIO 19; CALCIUM 8.1 MG/DL (8.5-10.1); CARBON DIOXIDE 20 MMOL/L (21-32); CHLORIDE 107 MMOL/L (98-107); CREATININE SERUM 0.86 MG/DL (0.60-1.30); GFR ESTIMATED > 60; GLUCOSE 131 MG/DL (70-105); POTASSIUM 3.5 MMOL/L (3.6-5.0); SODIUM 137 MMOL/L (135-145); TOTAL PROTEIN 5.9 GM/DL (6.4-8.2)
[2018-02-15] MEDS: fentaNYL INJECTION 100 MCG/2 ML AMP IVP PRN (07:58)
[2018-02-15 08:00] VITALS: BP 129/58
[2018-02-15] MEDS: POLYETHYLENE GLYCOL 17 GM (MIRALAX) PACK PO SCH ×2 (09:34→21:28)
[2018-02-15] MEDS: SENNA W/DOCUSATE (SENOKOT S) TABLET PO SCH ×2 (09:34→21:27)
[2018-02-15] MEDS: oxyCODONE/APAP 7.5-325 MG (PERCOCET 7.5) TABLET PO PRN ×2 (09:34→14:47)
[2018-02-15] MEDS: ACETAMINOPHEN 500 MG TAB (TYLENOL) PO PRN (09:34)
[2018-02-15] MEDS: DOCUSATE SODIUM 100 MG (COLACE) CAP PO SCH ×2 (09:34→21:27)
[2018-02-15] MEDS: inSUlin DETERMIR 1 UNIT/0.01 ML (LEVEMIR) CHARGE PER UNIT SQ SCH ×2 (09:36→21:28)
[2018-02-15] MEDS: VANCOMYCIN INJECTION 1,750 MG in NS IV 500 ML 500 ML IV NR ×3 (09:40→21:53)
--- NOTE | 2018-02-15 12:18 | Progress Note-Hospitalist ---
Subjective HPI/CC On Admission Date Seen by Provider: Feb 15, 2018 Time Seen by Provider: 11:30 Subjective/Events-last exam Patient's leg's have more blisters Vanc has improved the status overall Dr Kiran consultation is appreciated No BM yet but took meds Not using home CPAP since can't get it organized at home to bring it to him PICC line ordered Patient did have what appeared to be either red man syndrome to the Vanc or just his fever so he was asymptomatic so will monitor that closely and may need to change to Zyvox but ibuprofen will be added to the Tylenol for additional fever treatment Review of Systems Musculoskeletal: leg pain Objective Exam Vital Signs Vital Signs Date Time Temp Pulse Resp B/P (MAP) Pulse Ox O2 Delivery O2 Flow Rate FiO2 02/15/18 11:00 101.2 02/15/18 08:36 98 Room Air 02/15/18 08:00 106 22 129/58 (81) Capillary Refill : Less Than 3 Seconds General Appearance: No Apparent Distress, WD/WN, Chronically ill, Obese Cardiovascular: Regular Rate, Rhythm, No Edema, No Gallop, No JVD, No Murmur, Normal Peripheral Pulses Gastrointestinal: Normal Bowel Sounds, No Organomegaly, No Pulsatile Mass, Non Tender, Soft Extremity: Other (edema left leg with blister formation and redness but appears darker and resolving although slow progress) Neurologic/Psychiatric: Alert, Oriented x3, No Motor/Sensory Deficits, Normal Mood/Affect Results/Procedures Lab Laboratory Tests 02/15/18 06:30 Patient resulted labs reviewed. Assessment/Plan Assessment and Plan Assess & Plan/Chief Complaint left leg cellulitis worsened JEFERSON DM Scrotal edema Plan: Maintain Vanc Consult Dr Kiran is much appreciated PICC in prep for custodial abx at [facility] Dr Vu in am Diagnosis/Problems Diagnosis/Problems (1) Cellulitis Status: Acute Qualifiers: Site of cellulitis: extremity Site of cellulitis of extremity: lower extremity Laterality: left Qualified Codes: L03.116 - Cellulitis of left lower limb (2) Sepsis Status: Resolved Qualifiers: Sepsis type: sepsis due to unspecified organism Qualified Codes: A41.9 - Sepsis, unspecified organism (3) JEFERSON on CPAP Status: Chronic (4) Morbid obesity with BMI of 60.0-69.9, adult Status: Chronic (5) Constipation Status: Acute Qualifiers: Constipation type: slow transit constipation Qualified Codes: K59.01 - Slow transit constipation (6) Hypokalemia Status: Acute (7) Scrotal edema Status: Acute (8) Diabetes type 2, uncontrolled Status: Chronic Qualifiers: Glycemic state: with hyperglycemia Qualified Codes: E11.65 - Type 2 diabetes mellitus with hyperglycemia Clinical Quality Measures DVT/VTE Risk/Contraindication: Risk Factor Score Per Nursin RFS Level Per Nursing on Admit: 4+=Very High ISABELLA OLIVER DO Feb 15, 2018 12:18
--- NOTE | 2018-02-15 12:21 | Progress Note ---
Subjective Time Seen by a Provider: 11:58 Subjective/Events-last exam Pt seen and examined, does not appear ill. He does have some pain in the left leg and states it is "draining more, they are changing the dressing a lot". He is otherwise tolerating diet. Pt states he actually can move his foot a little more than yesterday, has feeling in toes and no pain with movement. Review of Systems General: Chills, Night Sweats Pulmonary: No Dyspnea, No Cough Cardiovascular: No: Chest Pain, Palpitations Gastrointestinal: No: Nausea, Vomiting, Abdominal Pain Objective Exam Vital Signs Date Time Temp Pulse Resp B/P (MAP) Pulse Ox O2 Delivery O2 Flow Rate FiO2 02/15/18 09:34 100.9 02/15/18 08:36 98 Room Air 02/15/18 08:00 100.9 106 22 129/58 (81) 98 Room Air 02/15/18 00:16 99.1 92 20 117/54 (75) 93 Room Air 02/14/18 20:30 98.8 02/14/18 20:00 Room Air 02/14/18 16:43 100.1 02/14/18 16:10 100.1 104 20 138/64 (88) 97 Room Air I & O 02/15/18 07:00 Intake Total 3410 ml Output Total 0 ml Balance 3410 ml Capillary Refill : Less Than 3 Seconds General Appearance: No Apparent Distress, WD/WN, Obese (super morbidly) HEENT: PERRL/EOMI, Moist Mucous Membranes Respiratory: Chest Non Tender, Lungs Clear, Normal Breath Sounds, No Accessory Muscle Use, No Respiratory Distress Cardiovascular: Regular Rate, Rhythm, No Edema, No Gallop, No JVD, No Murmur, Normal Peripheral Pulses Gastrointestinal: normal bowel sounds, non tender, soft, no organomegaly Extremity: Other (left leg with worsening blisters, no change in pain from knee to foot, erythema is actually regressing. However, there are parts of his leg that are more purplish than yesterday. He has good feeling and movement of left foot.) Neurologic/Psychiatric: Alert, Oriented x3, No Motor/Sensory Deficits, Normal Mood/Affect Skin: Warm/Dry (see above left leg) Results Lab Laboratory Tests 02/14/18 16:11: Glucometer 93 02/14/18 20:24: Glucometer 131H 02/15/18 06:00: Glucometer 118H 02/15/18 06:30: White Blood Count 23.6H, Red Blood Count 3.44L, Hemoglobin 11.0L, Hematocrit 33L , Mean Corpuscular Volume 95, Mean Corpuscular Hemoglobin 32, Mean Corpuscular Hemoglobin Concent 34, Red Cell Distribution Width 13.8, Platelet Count 223, Mean Platelet Volume 9.8, Neutrophils (%) (Auto) 86H, Lymphocytes (%) (Auto) 7L , Monocytes (%) (Auto) 7, Eosinophils (%) (Auto) 1, Basophils (%) (Auto) 0, Neutrophils # (Auto) 20.2H, Lymphocytes # (Auto) 1.6, Monocytes # (Auto) 1.6H, Eosinophils # (Auto) 0.2, Basophils # (Auto) 0.0, Sodium Level 137, Potassium Level 3.5L, Chloride Level 107, Carbon Dioxide Level 20L, Anion Gap 10, Blood Urea Nitrogen 16, Creatinine 0.86, Estimat Glomerular Filtration Rate > 60, BUN/ Creatinine Ratio 19, Glucose Level 131H, Calcium Level 8.1L, Corrected Calcium 9.4, Total Bilirubin 1.7H, Aspartate Amino Transf (AST/SGOT) 32, Alanine Aminotransferase (ALT/SGPT) 32, Alkaline Phosphatase 144H, Total Protein 5.9L, Albumin 2.4L 02/15/18 11:04: Glucometer 136H Microbiology 02/11/18 Blood Culture - Preliminary, Resulted No growth Assessment/Plan Assessment/Plan Assessment/Plan Left Lower Extremity Cellulits The area over tibia appears worse, but erythema of upper leg is better. He has more blisters with serous drainage. I believe at this point that the blisters are just the body's way of getting fluid out since it can't drain up because of venous insufficiency of the leg. It is very unlikely that he has a necrotizing fasciitis because it should be getting worse (fast). I also doubt he compartment syndrome, but that would be my other concern. Basically right now the ABX cannot get out into skin, because of the edema and venous stasis; which is then making leg look worse. I will consult wound care tomorrow about possibly Hyperbaric chamber for lower leg. If anything changes or there is an obvious area to I&D then we can plan that, but no obvious place to open at this time. (I87.2) Venous insufficiency (chronic) (peripheral)- elevate legs, weight loss recommended (E66.01) Morbid (severe) obesity due to excess calories- weight loss recommended- consider bariatric surgery (G47.39) Other sleep apnea- (I10) Essential (primary) hypertension- resume BP medications within the next couple days if blood pressure becomes elevated. (E11.9) Type 2 diabetes mellitus- continue insulin regimen (K21.9) Gastro-esophageal reflux disease without esophagitis - monitor symptoms. Clinical Quality Measures DVT/VTE Risk/Contraindication: Risk Factor Score Per Nursin RFS Level Per Nursing on Admit: 4+=Very High PONCE KANG DO Feb 15, 2018 12:21
[2018-02-15] MEDS ORDERED: IBUPROFEN TABLET 200 MG TAB PO PRN (12:30)
[2018-02-15] MEDS: RT-ALBUTEROL SULF 2.5 MG/3 ML PRE-MIX VIAL INH SCH ×2 (15:00→19:29)
[2018-02-15] MEDS ORDERED: PATIENT MAY USE OWN MED,SINGLE MED PO SCH (15:00)
[2018-02-15 15:25] VITALS: BP 124/57
[2018-02-15] MEDS: Dulaglutide (Trulicity) 0.75 MG SC SCH (16:15)
[2018-02-15] MEDS ORDERED: TROUGH ORDER-PHARMACY XX NR (20:00)
[2018-02-16] VITALS: BP 136/67
[2018-02-16] MEDS: VANCOMYCIN INJECTION 1,750 MG in NS IV 500 ML 500 ML IV NR ×3 (05:15→18:30)
[2018-02-16] MEDS: ENOXAPARIN 60 MG/0.6 ML (LOVENOX) SYR SC SCH ×2 (05:16→18:29)
[2018-02-16] MEDS: inSUlin ASPART (NovoLOG) 1 UNIT/0.01 ML (CHARGE PER UNIT) SC SCH ×4 (05:36→20:23)
[2018-02-16 05:42] LABS: BASOPHILS % (AUTO) 0 % (0-10); EOSINOPHILS # (AUTO) 0.2 10^3/uL (0.0-0.3); EOSINOPHILS % (AUTO) 1 % (0-10); HEMATOCRIT 33 % (40-54); HEMOGLOBIN 10.7 G/DL (13.3-17.7); LYMPHOCYTES # (AUTO) 1.7 X 10^3 (1.0-4.0); LYMPHOCYTES % (AUTO) 8 % (12-44); MEAN CORPUSCULAR HEMOGLOBIN 31 PG (25-34); MEAN CORPUSCULAR HGB CONC 33 G/DL (32-36); MEAN CORPUSCULAR VOLUME 96 FL (80-99); MEAN PLATELET VOLUME 9.6 FL (7.4-10.4); MONOCYTES # (AUTO) 1.9 X 10^3 (0.0-1.0); MONOCYTES % (AUTO) 9 % (0-12); NEUTROPHILS # (AUTO) 17.6 X 10^3 (1.8-7.8); NEUTROPHILS % (AUTO) 82 % (42-75); PLATELET COUNT 241 10^3/uL (130-400); RED BLOOD COUNT 3.42 10^6/uL (4.35-5.85); RED CELL DISTRIBUTION WIDTH 14.1 % (10.0-14.5); WHITE BLOOD COUNT 21.4 10^3/uL (4.3-11.0)
[2018-02-16 05:57] LABS: NEUTROPHILS % (MANUAL) 81 %
[2018-02-16 05:58] LABS: EOSINOPHILS % (MANUAL) 1 %; LYMPHOCYTES % (MANUAL) 5 %; METAMYELOCYTES % 4 %; MONOCYTES % (MANUAL) 9 %
[2018-02-16 06:01] LABS: ALANINE AMINOTRANSFERASE 31 U/L (0-55); ALBUMIN 2.3 GM/DL (3.2-4.5); ALKALINE PHOSPHATASE 139 U/L (40-136); BILIRUBIN,TOTAL 1.3 MG/DL (0.1-1.0); BUN/CREATININE RATIO 16; CARBON DIOXIDE 22 MMOL/L (21-32); CHLORIDE 105 MMOL/L (98-107); CREATININE SERUM 0.83 MG/DL (0.60-1.30); GFR ESTIMATED > 60; GLUCOSE 123 MG/DL (70-105); POTASSIUM 3.4 MMOL/L (3.6-5.0); SODIUM 135 MMOL/L (135-145); TOTAL PROTEIN 5.7 GM/DL (6.4-8.2)
[2018-02-16] MEDS: KCL 10 MEQ TAB (MICRO K) PO SCH ×2 (06:07→20:22)
[2018-02-16] MEDS: RT-ALBUTEROL SULF 2.5 MG/3 ML PRE-MIX VIAL INH SCH ×4 (07:08→18:47)
[2018-02-16] MEDS: inSUlin DETERMIR 1 UNIT/0.01 ML (LEVEMIR) CHARGE PER UNIT SQ SCH ×2 (07:33→20:23)
[2018-02-16] MEDS: PIPERACILLIN SODIUM/TAZOBACTAM 4.5 GM in NS (IVPB) 100 ML IV SCH ×3 (07:33→22:14)
[2018-02-16] MEDS: fentaNYL INJECTION 100 MCG/2 ML AMP IVP PRN (07:39)
[2018-02-16] MEDS: SENNA W/DOCUSATE (SENOKOT S) TABLET PO SCH ×2 (07:56→20:22)
[2018-02-16] MEDS: POLYETHYLENE GLYCOL 17 GM (MIRALAX) PACK PO SCH ×2 (07:57→20:23)
[2018-02-16] MEDS: DOCUSATE SODIUM 100 MG (COLACE) CAP PO SCH ×2 (07:57→20:22)
[2018-02-16 08:00] VITALS: BP 142/63
[2018-02-16] MEDS: oxyCODONE/APAP 7.5-325 MG (PERCOCET 7.5) TABLET PO PRN ×3 (09:19→21:09)
--- NOTE | 2018-02-16 13:58 | Progress Note ---
Subjective Time Seen by a Provider: 13:29 Subjective/Events-last exam Pt seen and examined, he states the pain is actually better than yesterday. Although, his foot really hurts when he get up to go to the bathroom; it goes away quickly when he puts leg up. Review of Systems General: No Chills; Night Sweats, Fatigue Pulmonary: No Dyspnea, No Cough Cardiovascular: No: Chest Pain, Palpitations Gastrointestinal: No: Nausea, Vomiting, Abdominal Pain Objective Exam Vital Signs Date Time Temp Pulse Resp B/P (MAP) Pulse Ox O2 Delivery O2 Flow Rate FiO2 02/16/18 11:42 97 Room Air 02/16/18 07:08 92 Room Air 02/16/18 00:00 97.4 87 20 136/67 (90) 96 Room Air 02/15/18 20:00 Room Air 02/15/18 19:29 95 Room Air 02/15/18 18:39 98.5 02/15/18 16:15 99.0 02/15/18 15:47 100.7 02/15/18 15:25 100.7 108 20 124/57 (79) 95 Room Air 02/15/18 15:00 94 Room Air I & O 02/16/18 07:00 Intake Total 2077.5 ml Balance 2077.5 ml Capillary Refill : Less Than 3 Seconds General Appearance: WD/WN, Mild Distress (left leg pain), Obese (super morbidly obese) HEENT: PERRL/EOMI Neck: Non Tender, Supple Respiratory: Chest Non Tender, Lungs Clear, Normal Breath Sounds Cardiovascular: Regular Rate, Rhythm, No Murmur Gastrointestinal: normal bowel sounds, non tender, soft, no organomegaly Extremity: Calf Tenderness (left- hot to touch- woody edema- erythema- cellulitis), Other (erythema continues to decrease, weeping edema and blisters are worse, purple areas not as bad) Neurologic/Psychiatric: Alert, Oriented x3 Lymphatic: No Adenopathy Results Lab Laboratory Tests 02/15/18 15:40: Glucometer 123H 02/15/18 20:19: Vancomycin Level Trough 9.6L 02/15/18 21:12: Glucometer 172H 02/16/18 05:31: Glucometer 112H 02/16/18 05:35: White Blood Count 21.4H, Red Blood Count 3.42L, Hemoglobin 10.7L, Hematocrit 33L , Mean Corpuscular Volume 96, Mean Corpuscular Hemoglobin 31, Mean Corpuscular Hemoglobin Concent 33, Red Cell Distribution Width 14.1, Platelet Count 241, Mean Platelet Volume 9.6, Neutrophils (%) (Auto) 82H, Lymphocytes (%) (Auto) 8L , Monocytes (%) (Auto) 9, Eosinophils (%) (Auto) 1, Basophils (%) (Auto) 0, Neutrophils # (Auto) 17.6H, Lymphocytes # (Auto) 1.7, Monocytes # (Auto) 1.9H, Eosinophils # (Auto) 0.2, Basophils # (Auto) 0.0, Neutrophils % (Manual) 81, Lymphocytes % (Manual) 5, Monocytes % (Manual) 9, Eosinophils % (Manual) 1, Metamyelocytes % 4, Sodium Level 135, Potassium Level 3.4L, Chloride Level 105, Carbon Dioxide Level 22, Anion Gap 8, Blood Urea Nitrogen 13, Creatinine 0.83, Estimat Glomerular Filtration Rate > 60, BUN/Creatinine Ratio 16, Glucose Level 123H, Calcium Level 8.0L, Corrected Calcium 9.4, Total Bilirubin 1.3H, Aspartate Amino Transf (AST/SGOT) 33, Alanine Aminotransferase (ALT/SGPT) 31, Alkaline Phosphatase 139H, Total Protein 5.7L, Albumin 2.3L 02/16/18 11:20: Glucometer 118H Microbiology 02/11/18 Blood Culture - Preliminary, Resulted No growth Assessment/Plan Assessment/Plan Assessment/Plan Left Lower Extremity Cellulits with Venous stasis The area over tibia appears slightly better and erythema of upper leg is better. He has even more blisters with serous drainage, today. I called Dr. Vu of wound care to see if he can offer anything else at this time. Still no area or indication for I&D. (I87.2) Venous insufficiency (chronic) (peripheral)- elevate legs, weight loss recommended (E66.01) Morbid (severe) obesity due to excess calories- weight loss recommended- consider bariatric surgery (G47.39) Other sleep apnea- (I10) Essential (primary) hypertension- resume BP medications within the next couple days if blood pressure becomes elevated. (E11.9) Type 2 diabetes mellitus- continue insulin regimen (K21.9) Gastro-esophageal reflux disease without esophagitis - monitor symptoms. Clinical Quality Measures DVT/VTE Risk/Contraindication: Risk Factor Score Per Nursin RFS Level Per Nursing on Admit: 4+=Very High PONCE KANG DO Feb 16, 2018 13:58
[2018-02-16 16:45] VITALS: BP 128/59
--- NOTE | 2018-02-16 17:27 | Wound Care Assessment ---
Wound Care Assessment Date Seen by Provider: Feb 16, 2018 Time Seen by Provider: 17:23 Chief Complaint L calf ulcer. HPI The patient is a 47 year old male, obese with diabetes under good control, who presented 5 days ago with the rapid deterioration of L calf ulcers, now with extensive, confluent, circumferential bullae and marked pain, swelling and cellulitis. The level of cellulitis has improved with broad spectrum IV antibiotics and bed rest. He is unaware of any inciting injury. The case is discussed with Dr. Kiran and Dr. Ly. The bullae are recent developments, but will prevent a topical antimicrobial from reaching the tissue. Local debridement is attempted at bedside but too painful to proceed. Operative debridement is discussed with Dr. Kiran, and he will evaluate in AM. Segmental pressures are unobtainable because of the size, location, and tenderness of the lesion. Color flow Doppler exam with velocities is ordered. The L pedal pulses are not palpated and are monophasic by Doppler. Past Medical History: Admits Diabetes Type II Long-standing history of lymphedema; obstructive sleep apnea, on CPAP; hypertension. Smoking Status: Never a Smoker Recreational Drug Use: No Alcohol Use: Occasionally Uses Review of Systems General: Chills (On admission) HEENT: No Head Aches, No Visual Changes, No Eye Pain, No Ear Pain, No Dysphasia , No Sinus Congestion, No Post Nasal Drip, No Sore Throat, No Other Pulmonary: No Dyspnea Cardiovascular: Other (Prior to current illness was able to walk 1/4 mile without stopping.); No: Chest Pain Gastrointestinal: No: Nausea, Abdominal Pain Genitourinary: No Incontinence Musculoskeletal: leg pain (severe, especially when standing.) Neurological: Weakness (recent development.) Other systems Endocrine -- Blood glucose levels have been more difficult to manage since recent infection. Psych -- No c/o related to mood or affect. Exam Vital Signs Date Time Temp Pulse Resp B/P (MAP) Pulse Ox O2 Delivery O2 Flow Rate FiO2 02/16/18 16:45 99.7 105 20 128/59 (82) 98 Room Air Capillary Refill : Less Than 3 Seconds General Appearance: no apparent distress, obese HEENT: normal ENT inspection Neck: normal inspection Cardiovascular: regular rate, rhythm, other (Massive lower leg edema, especially L leg.) Respiratory: lungs clear, no accessory muscle use Gastrointestinal: normal bowel sounds, soft Back: normal inspection Extremities: normal inspection Neurologic/Psychiatric: alert, normal mood/affect Skin: other (Essentially complete involvement of L calf with cellulitis, ulceration and bullae formation, and purple discoloration of gaiter distribution on the L.) Skin Character: bullous, drainage, erythema, swelling, tenderness Results Laboratory Tests 02/15/18 20:19: Vancomycin Level Trough 9.6L 02/15/18 21:12: Glucometer 172H 02/16/18 05:31: Glucometer 112H 02/16/18 05:35: White Blood Count 21.4H, Red Blood Count 3.42L, Hemoglobin 10.7L, Hematocrit 33L , Mean Corpuscular Volume 96, Mean Corpuscular Hemoglobin 31, Mean Corpuscular Hemoglobin Concent 33, Red Cell Distribution Width 14.1, Platelet Count 241, Mean Platelet Volume 9.6, Neutrophils (%) (Auto) 82H, Lymphocytes (%) (Auto) 8L , Monocytes (%) (Auto) 9, Eosinophils (%) (Auto) 1, Basophils (%) (Auto) 0, Neutrophils # (Auto) 17.6H, Lymphocytes # (Auto) 1.7, Monocytes # (Auto) 1.9H, Eosinophils # (Auto) 0.2, Basophils # (Auto) 0.0, Neutrophils % (Manual) 81, Lymphocytes % (Manual) 5, Monocytes % (Manual) 9, Eosinophils % (Manual) 1, Metamyelocytes % 4, Sodium Level 135, Potassium Level 3.4L, Chloride Level 105, Carbon Dioxide Level 22, Anion Gap 8, Blood Urea Nitrogen 13, Creatinine 0.83, Estimat Glomerular Filtration Rate > 60, BUN/Creatinine Ratio 16, Glucose Level 123H, Calcium Level 8.0L, Corrected Calcium 9.4, Total Bilirubin 1.3H, Aspartate Amino Transf (AST/SGOT) 33, Alanine Aminotransferase (ALT/SGPT) 31, Alkaline Phosphatase 139H, Total Protein 5.7L, Albumin 2.3L 02/16/18 11:20: Glucometer 118H 02/16/18 16:42: Glucometer 105 Microbiology 02/11/18 Blood Culture - Final, Complete No growth Ultrasound of L calf from 02/14/18 does not report on status of L calf veins. Venous study ordered. Arterial Doppler color Flow ordered. D-Dimer elevated on admission. Assessment/Plan/Dx 1. Erysipelas of L calf, with ulceration, with extensive cellulitis. 2. Bilateral lower extremity lymphedema, long-standing. 3. Diabetes mellitus, on insulin. 4. Peripheral arterial disease, R/O obstructive disease. 5. Extensive L calf ulcer, essentially circumferential. Plan: Debridement of over lying bullae, topical treatment with Silvadene cream , arterial evaluation, and if obstruction can be ruled out, begin compression when cellulitis and infection better controlled. The patient is urged to elevate his ankles higher than his heart to relieve edema. KOURTNEY FARNSWORTH MD Feb 16, 2018 17:27
--- NOTE | 2018-02-16 18:03 | Progress Note (SOAP) ---
Subjective Subjective Date Seen by Provider: Feb 16, 2018 Time Seen by Provider: 06:45 47 yo M admitted for sepsis due to cellulitis- no significant changes over the weekend - maybe a little better. Last fever was yesterday. He is getting restless being inpatient. Getting up to go to restroom is still a task. Vancomycin was started over the weekend. Review of Systems General: No Chills; Night Sweats, Fatigue HEENT: No Head Aches, No Visual Changes Pulmonary: No Dyspnea, No Cough Cardiovascular: No: Chest Pain, Palpitations Gastrointestinal: No: Nausea, Vomiting, Abdominal Pain Genitourinary: No Dysuria, No Frequency Musculoskeletal: leg pain (left); No: neck pain, shoulder pain Neurological: Weakness; No: Numbness, Confusion Objective Exam Vital Signs Vital Signs Date Time Temp Pulse Resp B/P (MAP) Pulse Ox O2 Delivery O2 Flow Rate FiO2 02/16/18 16:45 99.7 105 20 128/59 (82) 98 Room Air 02/16/18 11:42 97 Room Air 02/16/18 08:00 99.0 102 22 142/63 (89) 96 Room Air 02/16/18 07:08 92 Room Air 02/16/18 00:00 97.4 87 20 136/67 (90) 96 Room Air 02/15/18 20:00 Room Air 02/15/18 19:29 95 Room Air 02/15/18 18:39 98.5 I & O 02/16/18 07:00 Intake Total 2077.5 ml Balance 2077.5 ml General Appearance: WD/WN, Mild Distress (left leg pain), Obese (super morbidly obese) Eyes: Bilateral Eye PERRL, Bilateral Eye EOMI HEENT: PERRL/EOMI Neck: Non Tender, Supple Respiratory: Chest Non Tender, Lungs Clear, Normal Breath Sounds Cardiovascular: Regular Rate, Rhythm, No Murmur Gastrointestinal: Non Tender Rectal: Deferred Back: Normal Inspection Extremity: Calf Tenderness (left- hot to touch- woody edema- erythema- cellulitis), Other (erythema continues to decrease, weeping edema and blisters are worse, purple areas not as bad) Neurologic/Psychiatric: Alert, Oriented x3 Lymphatic: No Adenopathy Results Lab Laboratory Tests 02/15/18 20:19: Vancomycin Level Trough 9.6L 02/15/18 21:12: Glucometer 172H 02/16/18 05:31: Glucometer 112H 02/16/18 05:35: White Blood Count 21.4H, Red Blood Count 3.42L, Hemoglobin 10.7L, Hematocrit 33L , Mean Corpuscular Volume 96, Mean Corpuscular Hemoglobin 31, Mean Corpuscular Hemoglobin Concent 33, Red Cell Distribution Width 14.1, Platelet Count 241, Mean Platelet Volume 9.6, Neutrophils (%) (Auto) 82H, Lymphocytes (%) (Auto) 8L , Monocytes (%) (Auto) 9, Eosinophils (%) (Auto) 1, Basophils (%) (Auto) 0, Neutrophils # (Auto) 17.6H, Lymphocytes # (Auto) 1.7, Monocytes # (Auto) 1.9H, Eosinophils # (Auto) 0.2, Basophils # (Auto) 0.0, Neutrophils % (Manual) 81, Lymphocytes % (Manual) 5, Monocytes % (Manual) 9, Eosinophils % (Manual) 1, Metamyelocytes % 4, Sodium Level 135, Potassium Level 3.4L, Chloride Level 105, Carbon Dioxide Level 22, Anion Gap 8, Blood Urea Nitrogen 13, Creatinine 0.83, Estimat Glomerular Filtration Rate > 60, BUN/Creatinine Ratio 16, Glucose Level 123H, Calcium Level 8.0L, Corrected Calcium 9.4, Total Bilirubin 1.3H, Aspartate Amino Transf (AST/SGOT) 33, Alanine Aminotransferase (ALT/SGPT) 31, Alkaline Phosphatase 139H, Total Protein 5.7L, Albumin 2.3L 02/16/18 11:20: Glucometer 118H 02/16/18 16:42: Glucometer 105 Microbiology 02/11/18 Blood Culture - Final, Complete No growth Assessment/Plan Assessment/Plan Admission Dx left leg cellulitis Admission Status: Inpatient Order (span 2 midnights) Assessment and Plan 47 yo M sepsis due to left leg cellulitis- IV ceftriaxone- discontinued 02/13/18 started zosyn 02/13/18 as pt is Diabetic with increased risk for polymicrobial. Vancomycin started 02/14/18 (I87.2) Venous insufficiency (chronic) (peripheral)- elevate legs, weight loss recommended (E66.01) Morbid (severe) obesity due to excess calories- weight loss recommended- consider bariatric surgery (I10) Essential (primary) hypertension- resume BP medications if BP remains elevated (E11.9) Type 2 diabetes mellitus- continue insulin regimen (K21.9) Gastro-esophageal reflux disease without esophagitis - monitor symptoms. -hypokalemia- replacing prn Dispo: admitted for left leg cellulitis- appears to be improving some; still had exudate- Dr. Vu, wound consult.agrees would be best to get the edema/ cellutiis under control prior to allowing wraping her legs --blood cultures - NGTD lovenox BID for dvt ppx Problems: (1) Cellulitis Qualifiers: Qualified Codes: L03.116 - Cellulitis of left lower limb (2) Sepsis Qualifiers: Qualified Codes: A41.9 - Sepsis, unspecified organism (3) JEFERSON on CPAP (4) Morbid obesity with BMI of 60.0-69.9, adult (5) Constipation Qualifiers: Qualified Codes: K59.01 - Slow transit constipation (6) Hypokalemia Admission Dx left leg cellulitis Clinical Quality Measures Admission Status Admission Dx left leg cellulitis DVT/VTE Risk/Contraindication: Risk Factor Score Per Nursin RFS Level Per Nursing on Admit: 4+=Very High HARDY PAL MD Feb 16, 2018 18:03
--- NOTE | 2018-02-16 18:19 | Diagnostic Imaging Report ---
INDICATION: PICC line placement. EXAM: PA chest obtained at 04:38 p.m. COMPARISON: There is no prior study for comparison. FINDINGS: There is cardiomegaly. There is mild central vascular prominence without focal infiltrate, pneumothorax, or pleural fluid. There is a PICC line in place from the right arm, tip appears to overlie the distal SVC. Study is somewhat technically limited. IMPRESSION: Cardiomegaly and mild central vascular prominence. No focal infiltrate or pleural fluid. Right-sided PICC line tip overlies the distal SVC. Report given to nurse Hartman at 6:19 p.m. 02/16/2018/cb Dictated by: Dictated on workstation # [id number]
[2018-02-16] MEDS: VANCOMYCIN INJECTION 1,750 MG in NS IV 500 ML 500 ML IV SCH (18:30)
[2018-02-16] MEDS ORDERED: TROUGH ORDER-PHARMACY XX NR (20:00)
[2018-02-17] VITALS: BP 127/56
[2018-02-17] MEDS ORDERED: TROUGH ORDER-PHARMACY XX NR ×2 (01:30→17:30)
[2018-02-17] MEDS: VANCOMYCIN INJECTION 1,750 MG in NS IV 500 ML 500 ML IV SCH ×3 (02:28→18:56)
[2018-02-17] MEDS: PIPERACILLIN/TAZO 4.5 GM/NS 100 ML IV SCH ×6 (02:29→18:56)
[2018-02-17] MEDS: ENOXAPARIN 60 MG/0.6 ML (LOVENOX) SYR SC SCH ×2 (05:36→17:50)
[2018-02-17] MEDS: oxyCODONE/APAP 7.5-325 MG (PERCOCET 7.5) TABLET PO PRN ×4 (05:36→22:51)
[2018-02-17 06:21] LABS: BASOPHILS # (AUTO) 0.1 10^3/uL (0.0-0.1); BASOPHILS % (AUTO) 0 % (0-10); EOSINOPHILS # (AUTO) 0.2 10^3/uL (0.0-0.3); EOSINOPHILS % (AUTO) 1 % (0-10); HEMATOCRIT 31 % (40-54); HEMOGLOBIN 10.5 G/DL (13.3-17.7); LYMPHOCYTES # (AUTO) 1.8 X 10^3 (1.0-4.0); LYMPHOCYTES % (AUTO) 10 % (12-44); MEAN CORPUSCULAR HEMOGLOBIN 33 PG (25-34); MEAN CORPUSCULAR HGB CONC 34 G/DL (32-36); MEAN CORPUSCULAR VOLUME 95 FL (80-99); MEAN PLATELET VOLUME 9.5 FL (7.4-10.4); MONOCYTES % (AUTO) 11 % (0-12); NEUTROPHILS # (AUTO) 13.2 X 10^3 (1.8-7.8); NEUTROPHILS % (AUTO) 77 % (42-75); PLATELET COUNT 242 10^3/uL (130-400); RED BLOOD COUNT 3.23 10^6/uL (4.35-5.85); WHITE BLOOD COUNT 17.1 10^3/uL (4.3-11.0)
[2018-02-17] MEDS: KCL 10 MEQ TAB (MICRO K) PO SCH (06:39)
[2018-02-17 06:41] LABS: ALANINE AMINOTRANSFERASE 25 U/L (0-55); ALBUMIN 2.2 GM/DL (3.2-4.5); ALKALINE PHOSPHATASE 114 U/L (40-136); BILIRUBIN,TOTAL 1.2 MG/DL (0.1-1.0); BUN/CREATININE RATIO 12; CALCIUM 7.7 MG/DL (8.5-10.1); CARBON DIOXIDE 24 MMOL/L (21-32); CHLORIDE 104 MMOL/L (98-107); CREATININE SERUM 0.81 MG/DL (0.60-1.30); GFR ESTIMATED > 60; GLUCOSE 125 MG/DL (70-105); POTASSIUM 3.4 MMOL/L (3.6-5.0); SODIUM 136 MMOL/L (135-145); TOTAL PROTEIN 5.6 GM/DL (6.4-8.2)
[2018-02-17] MEDS: inSUlin ASPART (NovoLOG) 1 UNIT/0.01 ML (CHARGE PER UNIT) SC SCH ×4 (06:52→22:00)
[2018-02-17] MEDS: RT-ALBUTEROL SULF 2.5 MG/3 ML PRE-MIX VIAL INH SCH ×4 (07:01→19:06)
[2018-02-17 08:00] VITALS: BP 131/62
[2018-02-17] MEDS: DOCUSATE SODIUM 100 MG (COLACE) CAP PO SCH ×2 (09:41→20:35)
[2018-02-17] MEDS: POLYETHYLENE GLYCOL 17 GM (MIRALAX) PACK PO SCH ×2 (09:41→20:36)
[2018-02-17] MEDS: SENNA W/DOCUSATE (SENOKOT S) TABLET PO SCH ×2 (09:41→20:36)
[2018-02-17] MEDS: SILVER SULFADIAZINE 400 GM CREAM TOP SCH (09:42)
[2018-02-17] MEDS: inSUlin DETERMIR 1 UNIT/0.01 ML (LEVEMIR) CHARGE PER UNIT SQ SCH ×2 (09:42→20:36)
[2018-02-17] MEDS: CATHETER FLUSH 10 ML SYR IV PRN (09:43)
--- NOTE | 2018-02-17 10:26 | Diagnostic Imaging Report ---
PROCEDURE: US left lower extremity venous. TECHNIQUE: Multiple real-time grayscale images were obtained over the left lower extremity in various projections. Additional duplex Doppler and color Doppler images were also obtained. INDICATION: Left lower extremity cellulitis. FINDINGS: Color Doppler imaging of left lower extremity shows normal venous flow. There is normal augmentation of flow at the popliteal level with calf compression. IMPRESSION: No evidence of venous thrombosis left lower extremity. Dictated by: Dictated on workstation # [id number]
--- NOTE | 2018-02-17 10:32 | Diagnostic Imaging Report ---
PROCEDURE: US Bilateral lower extremity arterial. TECHNIQUE: Multiple real-time grayscale images are obtained through both lower extremity arterial systems with color Doppler imaging and color Doppler spectral analysis. INDICATION: Left calf and foot pain with cellulitis. FINDINGS: The study is somewhat limited due to body habitus. The right lower extremity shows triphasic flow from the external iliac artery throughout to the popliteal artery. Biphasic flow is noted in the trifurcation vessels with normal peak velocities at the ankle in the posterior tibial and dorsalis pedis artery at 75 cm/s. Left lower extremity shows abnormal flow with monophasic appearance from the common femoral artery distally. There does appear to be occlusion of the proximal dorsalis pedis artery. There is abnormal flow with high velocities at the ankle in the posterior tibial and dorsalis pedis artery measuring 218 cm/s in the posterior tibial artery and 108 cm/s in the dorsalis pedis. IMPRESSION: 1. Abnormal findings throughout the left lower extremity consistent with hemodynamic stenosis proximal to the common femoral artery. There is also severe trifurcation disease noted in the left calf. 2. Right lower extremity shows normal Doppler velocities and waveforms. Dictated by: Dictated on workstation # [id number]
--- NOTE | 2018-02-17 11:13 | Progress Note ---
Subjective Time Seen by a Provider: 09:51 Subjective/Events-last exam Pt seen and examined, he thinks pain is maybe better; definitely not worse. Seen by Dr. Vu who tried to do some debridement of the bullae; pt stated it was very painful, he used washcloth. Review of Systems General: No Chills, No Night Sweats Pulmonary: No Cough, No Pleuritic Chest Pain Cardiovascular: No: Chest Pain, Palpitations Gastrointestinal: No: Nausea, Vomiting, Abdominal Pain Objective Exam Vital Signs Date Time Temp Pulse Resp B/P (MAP) Pulse Ox O2 Delivery O2 Flow Rate FiO2 02/17/18 08:00 98.4 100 16 131/62 (85) 98 Room Air 02/17/18 08:00 Room Air 02/17/18 07:01 95 Room Air 02/17/18 00:00 98.3 90 20 127/56 (79) 96 Room Air 02/16/18 20:00 Room Air 02/16/18 18:47 92 Room Air 02/16/18 16:45 99.7 105 20 128/59 (82) 98 Room Air 02/16/18 11:42 97 Room Air I & O 02/17/18 07:00 Intake Total 3632.5 ml Balance 3632.5 ml Capillary Refill : Less Than 3 Seconds General Appearance: WD/WN, Mild Distress (left leg pain), Obese (super morbidly obese) HEENT: PERRL/EOMI Neck: Non Tender, Supple Respiratory: Chest Non Tender, Lungs Clear, Normal Breath Sounds Cardiovascular: Regular Rate, Rhythm, No Murmur Gastrointestinal: normal bowel sounds, soft Extremity: Calf Tenderness (left- hot to touch- woody edema- erythema- cellulitis), Other (erythema continues to decrease, weeping edema and blisters are worse, purple areas possibly worse) Neurologic/Psychiatric: Alert, Oriented x3 Results Lab Laboratory Tests 02/16/18 11:20: Glucometer 118H 02/16/18 16:42: Glucometer 105 02/16/18 20:53: Glucometer 133H 02/17/18 01:28: Vancomycin Level Trough 12.6 02/17/18 05:50: Glucometer 108 02/17/18 06:15: White Blood Count 17.1H, Red Blood Count 3.23L, Hemoglobin 10.5L, Hematocrit 31L , Mean Corpuscular Volume 95, Mean Corpuscular Hemoglobin 33, Mean Corpuscular Hemoglobin Concent 34, Red Cell Distribution Width 14.0, Platelet Count 242, Mean Platelet Volume 9.5, Neutrophils (%) (Auto) 77H, Lymphocytes (%) (Auto) 10L , Monocytes (%) (Auto) 11, Eosinophils (%) (Auto) 1, Basophils (%) (Auto) 0, Neutrophils # (Auto) 13.2H, Lymphocytes # (Auto) 1.8, Monocytes # (Auto) 2.0H, Eosinophils # (Auto) 0.2, Basophils # (Auto) 0.1, Sodium Level 136, Potassium Level 3.4L, Chloride Level 104, Carbon Dioxide Level 24, Anion Gap 8, Blood Urea Nitrogen 10, Creatinine 0.81, Estimat Glomerular Filtration Rate > 60, BUN/ Creatinine Ratio 12, Glucose Level 125H, Calcium Level 7.7L, Corrected Calcium 9.1, Total Bilirubin 1.2H, Aspartate Amino Transf (AST/SGOT) 26, Alanine Aminotransferase (ALT/SGPT) 25, Alkaline Phosphatase 114, Total Protein 5.6L, Albumin 2.2L Microbiology 02/11/18 Blood Culture - Final, Complete No growth Assessment/Plan Assessment/Plan Assessment/Plan Cellulitis Venous stasis I consulted wound care yesterday, because there was still nothing to debride. Dr. Vu recommended arterial study and peeling off bullae to be able to place silver sulfadene. The preliminary report from US showed a proximal lesion, which is most likely inpairing pt's ability to recover from cellulitis. Adding to the problem of fluid not getting out of leg, ABX now having hard time getting in because of poor inflow. Continue local care. (I87.2) Venous insufficiency (chronic) (peripheral)- elevate legs, weight loss recommended (E66.01) Morbid (severe) obesity due to excess calories- weight loss recommended- consider bariatric surgery (I10) Essential (primary) hypertension- resume BP medications if BP remains elevated (E11.9) Type 2 diabetes mellitus- continue insulin regimen (K21.9) Gastro-esophageal reflux disease without esophagitis - monitor symptoms. -hypokalemia- replacing prn Clinical Quality Measures DVT/VTE Risk/Contraindication: Risk Factor Score Per Nursin RFS Level Per Nursing on Admit: 4+=Very High PONCE KANG DO Feb 17, 2018 11:13
--- NOTE | 2018-02-17 11:29 | Wound Care Assessment ---
Wound Care Assessment Date Seen by Provider: Feb 17, 2018 Time Seen by Provider: 11:10 Chief Complaint L calf ulcer. HPI 47 year old male with 6 day history of massive cellulitis and ulceration of the L calf, noted to have only slight improvement with elevation, bedrest, and IV antibiotics. Venous Doppler study shows no evidence of DVT. Arterial Doppler shows monophasic flow in L common femoral artery and distally, consistent with a proximal stenosis. Discussed with Drs. Ly and Magno and with the patient. Dr. Richey consulted for evaluation of L leg arterial status. The superficial bullae have been debrided by Dr. Kiran and topical Silvadene begun. If the proximal arterial obstruction is resulting in diminished perfusion of the infected tissues, which seems likely, this perfusion deficit may be responsible for the delayed resolution of the cellulitis in L leg. Risk of limb loss, worsening infection, recurrent sepsis are all risks inherent in a hypoperfused limb. The patient is recommended to seriously consider arterial intervention to improve perfusion of the L leg. 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 Review of Systems Pulmonary: No Dyspnea Cardiovascular: No: Chest Pain Musculoskeletal: leg pain (Slightly less than before.) Exam Vital Signs Date Time Temp Pulse Resp B/P (MAP) Pulse Ox O2 Delivery O2 Flow Rate FiO2 02/17/18 08:00 98.4 100 16 131/62 (85) 98 Room Air Capillary Refill : Less Than 3 Seconds General Appearance: WD/WN, no apparent distress, obese HEENT: normal ENT inspection Neck: normal inspection Cardiovascular: other (moderate edema, though less.) Respiratory: no respiratory distress Extremities: other (L leg --- Persistent discoloration, with most of the bullae disrupted.) Results Laboratory Tests 02/16/18 11:20: Glucometer 118H 02/16/18 16:42: Glucometer 105 02/16/18 20:53: Glucometer 133H 02/17/18 01:28: Vancomycin Level Trough 12.6 02/17/18 05:50: Glucometer 108 02/17/18 06:15: White Blood Count 17.1H, Red Blood Count 3.23L, Hemoglobin 10.5L, Hematocrit 31L , Mean Corpuscular Volume 95, Mean Corpuscular Hemoglobin 33, Mean Corpuscular Hemoglobin Concent 34, Red Cell Distribution Width 14.0, Platelet Count 242, Mean Platelet Volume 9.5, Neutrophils (%) (Auto) 77H, Lymphocytes (%) (Auto) 10L , Monocytes (%) (Auto) 11, Eosinophils (%) (Auto) 1, Basophils (%) (Auto) 0, Neutrophils # (Auto) 13.2H, Lymphocytes # (Auto) 1.8, Monocytes # (Auto) 2.0H, Eosinophils # (Auto) 0.2, Basophils # (Auto) 0.1, Sodium Level 136, Potassium Level 3.4L, Chloride Level 104, Carbon Dioxide Level 24, Anion Gap 8, Blood Urea Nitrogen 10, Creatinine 0.81, Estimat Glomerular Filtration Rate > 60, BUN/ Creatinine Ratio 12, Glucose Level 125H, Calcium Level 7.7L, Corrected Calcium 9.1, Total Bilirubin 1.2H, Aspartate Amino Transf (AST/SGOT) 26, Alanine Aminotransferase (ALT/SGPT) 25, Alkaline Phosphatase 114, Total Protein 5.6L, Albumin 2.2L Microbiology 02/11/18 Blood Culture - Final, Complete No growth Venous Doppler -- No sign of DVT. Arterial color flow Doppler -- Monophasic waveform throughout L arterial tree , consistent with proximal stenosis. Also, distal obstruction in tibial vessel. Blood glucose this morning -- 79. Assessment/Plan/Dx 1. Erysipelas of L calf, with ulceration, with extensive cellulitis, slight improvement. High risk of limb loss. 2. Bilateral lower extremity lymphedema, long-standing. 3. Diabetes mellitus, on insulin with good control. 4. Peripheral arterial disease, probable iliac artery stenosis. 5. Extensive L calf ulcer, essentially circumferential. Plan: Vascular interventional consultation requested per Dr. Richey. Continue topical Silvadene cream, elevation. The patient is urged to elevate his ankles higher than his heart to relieve edema. KOURTNEY FARNSWORTH MD Feb 17, 2018 11:29
[2018-02-17 16:15] VITALS: BP 128/60
--- NOTE | 2018-02-17 22:39 | Progress Note (SOAP) ---
Subjective Subjective Date Seen by Provider: Feb 17, 2018 Time Seen by Provider: 07:30 47 yo M admitted for sepsis due to cellulitis- -Pain is a little better. Pt hopeful to go home by end of the week. Still a task to get up and go to the bathroom. Eating normal. Drinking normal. U/S of legs - demonstrated no abscess, fluid pockets or DVTs. doppler sounded monophasic- arterial imaging demonstrated Abnormal findings throughout the left lower extremity consistent with hemodynamic stenosis proximal to the common femoral artery. There is also severe trifurcation disease noted in the left calf. Right lower extremity shows normal Doppler velocities and waveforms. Review of Systems General: No Chills, No Night Sweats HEENT: No Head Aches, No Visual Changes Pulmonary: No Dyspnea Cardiovascular: No: Chest Pain Gastrointestinal: No: Nausea, Vomiting, Abdominal Pain Genitourinary: No Dysuria, No Frequency Musculoskeletal: leg pain (Slightly less than before.) Neurological: Weakness; No: Numbness, Confusion Objective Exam Vital Signs Vital Signs Date Time Temp Pulse Resp B/P (MAP) Pulse Ox O2 Delivery O2 Flow Rate FiO2 02/17/18 20:00 Room Air 02/17/18 19:07 93 Room Air 02/17/18 16:15 99.8 102 24 128/60 (82) 98 Room Air 02/17/18 15:36 93 Room Air 02/17/18 11:13 94 Room Air 02/17/18 08:00 98.4 100 16 131/62 (85) 98 Room Air 02/17/18 08:00 Room Air 02/17/18 07:01 95 Room Air 02/17/18 00:00 98.3 90 20 127/56 (79) 96 Room Air I & O 02/17/18 07:00 Intake Total 3632.5 ml Balance 3632.5 ml General Appearance: WD/WN, Mild Distress (left leg pain), Obese Eyes: Bilateral Eye PERRL, Bilateral Eye EOMI HEENT: PERRL/EOMI Neck: Non Tender, Supple Respiratory: Chest Non Tender, Lungs Clear, Normal Breath Sounds Cardiovascular: Regular Rate, Rhythm, No Murmur Gastrointestinal: Non Tender Rectal: Deferred Back: Normal Inspection Extremity: Calf Tenderness (left- hot to touch- woody edema- erythema- cellulitis), Other (erythema continues to decrease, weeping edema noted) Neurologic/Psychiatric: Alert, Oriented x3 Results Lab Laboratory Tests 02/17/18 01:28: Vancomycin Level Trough 12.6 02/17/18 05:50: Glucometer 108 02/17/18 06:15: White Blood Count 17.1H, Red Blood Count 3.23L, Hemoglobin 10.5L, Hematocrit 31L , Mean Corpuscular Volume 95, Mean Corpuscular Hemoglobin 33, Mean Corpuscular Hemoglobin Concent 34, Red Cell Distribution Width 14.0, Platelet Count 242, Mean Platelet Volume 9.5, Neutrophils (%) (Auto) 77H, Lymphocytes (%) (Auto) 10L , Monocytes (%) (Auto) 11, Eosinophils (%) (Auto) 1, Basophils (%) (Auto) 0, Neutrophils # (Auto) 13.2H, Lymphocytes # (Auto) 1.8, Monocytes # (Auto) 2.0H, Eosinophils # (Auto) 0.2, Basophils # (Auto) 0.1, Sodium Level 136, Potassium Level 3.4L, Chloride Level 104, Carbon Dioxide Level 24, Anion Gap 8, Blood Urea Nitrogen 10, Creatinine 0.81, Estimat Glomerular Filtration Rate > 60, BUN/ Creatinine Ratio 12, Glucose Level 125H, Calcium Level 7.7L, Corrected Calcium 9.1, Total Bilirubin 1.2H, Aspartate Amino Transf (AST/SGOT) 26, Alanine Aminotransferase (ALT/SGPT) 25, Alkaline Phosphatase 114, Total Protein 5.6L, Albumin 2.2L 02/17/18 11:57: Glucometer 79 02/17/18 16:00: Glucometer 137H 02/17/18 18:05: Vancomycin Level Trough 13.2 02/17/18 20:34: Glucometer 94 Microbiology 02/11/18 Blood Culture - Final, Complete No growth Assessment/Plan Assessment/Plan Admission Dx left leg cellulitis Assessment and Plan 47 yo M sepsis due to left leg cellulitis- IV ceftriaxone- discontinued 02/13/18 started zosyn 02/13/18 as pt is Diabetic with increased risk for polymicrobial. Vancomycin started 02/14/18 (I87.2) Venous insufficiency (chronic) (peripheral)- elevate legs, weight loss recommended I73.9- PAD- Dr. Richey consulted for intervention- appears to be stenosis in iliac artery region- likely contributing to slow improvement of cellulitis. (E66.01) Morbid (severe) obesity due to excess calories- weight loss recommended- consider bariatric surgery (I10) Essential (primary) hypertension- resume BP medications (E11.9) Type 2 diabetes mellitus- continue insulin regimen (K21.9) Gastro-esophageal reflux disease without esophagitis - monitor symptoms. -hypokalemia- replacing prn Dispo: admitted for left leg cellulitis- appears to be improving some; still had drainage- Dr. Vu consulted for wound management - silvadene topically- --blood cultures - NGTD lovenox BID for dvt ppx Problems: (1) Cellulitis Qualifiers: Qualified Codes: L03.116 - Cellulitis of left lower limb (2) PAD (peripheral artery disease) Assessment & Plan: arterial u/s- stenosis noted proximal to common femoral artery- Dr. Richey consulted for intervention. (3) Sepsis Qualifiers: Qualified Codes: A41.9 - Sepsis, unspecified organism (4) JEFERSON on CPAP (5) Morbid obesity with BMI of 60.0-69.9, adult (6) Constipation Qualifiers: Qualified Codes: K59.01 - Slow transit constipation (7) Hypokalemia Admission Dx left leg cellulitis Clinical Quality Measures Admission Status Admission Dx left leg cellulitis DVT/VTE Risk/Contraindication: Risk Factor Score Per Nursin RFS Level Per Nursing on Admit: 4+=Very High HARDY PAL MD Feb 17, 2018 22:39
[2018-02-18] MEDS: ACETAMINOPHEN 500 MG TAB (TYLENOL) PO PRN (00:18)
[2018-02-18] MEDS: PIPERACILLIN/TAZO 4.5 GM/NS 100 ML IV SCH ×6 (02:26→18:37)
[2018-02-18] MEDS: VANCOMYCIN INJECTION 1,750 MG in NS IV 500 ML 500 ML IV SCH ×3 (02:26→18:37)
[2018-02-18] MEDS: ENOXAPARIN 60 MG/0.6 ML (LOVENOX) SYR SC SCH ×2 (05:14→17:47)
[2018-02-18 05:20] LABS: BASOPHILS % (AUTO) 0 % (0-10); EOSINOPHILS # (AUTO) 0.2 10^3/uL (0.0-0.3); EOSINOPHILS % (AUTO) 2 % (0-10); HEMATOCRIT 30 % (40-54); HEMOGLOBIN 9.8 G/DL (13.3-17.7); LYMPHOCYTES # (AUTO) 1.8 X 10^3 (1.0-4.0); LYMPHOCYTES % (AUTO) 13 % (12-44); MEAN CORPUSCULAR HEMOGLOBIN 31 PG (25-34); MEAN CORPUSCULAR HGB CONC 32 G/DL (32-36); MEAN CORPUSCULAR VOLUME 96 FL (80-99); MEAN PLATELET VOLUME 9.4 FL (7.4-10.4); MONOCYTES # (AUTO) 1.8 X 10^3 (0.0-1.0); MONOCYTES % (AUTO) 14 % (0-12); NEUTROPHILS # (AUTO) 9.3 X 10^3 (1.8-7.8); NEUTROPHILS % (AUTO) 71 % (42-75); PLATELET COUNT 269 10^3/uL (130-400); RED BLOOD COUNT 3.16 10^6/uL (4.35-5.85); RED CELL DISTRIBUTION WIDTH 14.1 % (10.0-14.5); WHITE BLOOD COUNT 13.1 10^3/uL (4.3-11.0)
[2018-02-18] MEDS: fentaNYL INJECTION 100 MCG/2 ML AMP IVP PRN ×5 (05:22→21:22)
[2018-02-18 05:40] LABS: BUN/CREATININE RATIO 12; CARBON DIOXIDE 23 MMOL/L (21-32); CHLORIDE 106 MMOL/L (98-107); CREATININE SERUM 0.78 MG/DL (0.60-1.30); GFR ESTIMATED > 60; GLUCOSE 124 MG/DL (70-105); POTASSIUM 3.5 MMOL/L (3.6-5.0); SODIUM 137 MMOL/L (135-145)
[2018-02-18 05:41] LABS: CALCIUM 7.7 MG/DL (8.5-10.1)
[2018-02-18] MEDS: inSUlin ASPART (NovoLOG) 1 UNIT/0.01 ML (CHARGE PER UNIT) SC SCH ×4 (06:04→20:40)
[2018-02-18] MEDS: KCL 10 MEQ TAB (MICRO K) PO SCH (06:04)
[2018-02-18] MEDS ORDERED: HEParin (CATH LAB) 0 ML IV ONE (07:03)
[2018-02-18] MEDS ORDERED: LIDOCAINE 1% INJ 20 ML 20 ML VIAL ONE (07:03)
[2018-02-18] MEDS ORDERED: NS IV 1000 ML 0 ML ONE (07:03)
[2018-02-18 08:00] VITALS: BP 111/53
[2018-02-18] MEDS: RT-ALBUTEROL SULF 2.5 MG/3 ML PRE-MIX VIAL INH SCH ×4 (08:14→19:23)
--- NOTE | 2018-02-18 09:21 | Consultation-Cardiology ---
HPI-Cardiology Cardiology Consultation: Date of Consultation 02/18/18 Date of Admission Attending Physician Kushal Ly MD Admitting Physician Kushal Ly MD Consulting Physician Panfilo BAUER MD HPI: Time Seen by a Provider: 09:21 Chief Complaint: Critical limb ischemia left lower extremity. This is a 47-year-old gentleman who has history of diabetes, morbid obesity, he weighs over 475 pounds, chronic lower extremity swelling. He presented with significant cellulitis and left lower extremity nonhealing ulcers. Treated aggressively by wound care as well as with IV antibiotics with relatively slow improvement. Arterial ultrasound shows likely significant PAD left lower extremity. Patient denies significant claudication, however the patient due to significant obesity this nonambulatory. He denies resting lower extremity discomfort. Review of Systems-Cardiology Review of Systems Constitutional: As described under HPI; No As described under HPI, No no symptoms reported, No chills, No fever, No lightheadedness Eyes: No As described under HPI, No no symptoms reported, No blindness, No blurred vision, No contact lenses, No drainage, No decreased acuity, No foreign body sensation, No pain, No vision change Ears/Nose/Throat: No As described under HPI, No no symptoms reported, No chronic hearing loss, No ear discharge, No ear pain, No nasal drainage, No ulcerations Respiratory: No no symptoms reported; As described under HPI; No As described under HPI, No cough, No orthopnea, No shortness of breath, No SOB with excertion Cardiovascular: No no symptoms reported; As described under HPI; No As described under HPI, No chest pain, No edema, No irregular heart rate, No lightheadedness, No palpitations Gastrointestinal: No no symptoms reported, No As described under HPI, No abdomen distended, No abdominal pain, No blood streaked bowels, No constipation , No diarrhea, No nausea, No vomiting, No stool coloration changes Genitourinary: No As described under HPI, No burning, No dysuria, No discharge , No frequency, No flank pain, No hematuria, No urgency Skin: No rash, No skin related problems, No ulcerations; rash on exposed areas , ulcerations on exposed areas Psychiatric/Neurological: No anxiety, No depression, No seizure, No focal weakness, No syncope Hematologic: No bleeding abnormalities ROS-[id number]-[id number] Hx Patient Social History Alcohol Use: Occasionally Uses Recreational Drug Use: No Smoking Status: Never a Smoker Recent Foreign Travel: No Recent Infectious Disease Expo: No Hospitalization with Isolation: Denies Physical Abuse Screen: No Sexual Abuse: No Past Medical History PMH As described under Assessment. Family Medical History Family History: Cardiovascular disease 19 FATHER (CABG AGE 60 ) 19 MOTHER, Onset:60 years & older Allergies and Home Medications Allergies Coded Allergies: No Known Drug Allergies (Unverified , 10/08/17) Home Medications Amlodipine Besylate 5 Mg Tablet, 5 MG PO DAILY, (Reported) Dulaglutide 0.75 Mg/0.5 Ml Pen.injctr, 0.75 MG SC [place], (Reported) Furosemide 40 Mg Tablet, 40 MG PO DAILY, (Reported) LAST FILLED #60 11-03-17 Insulin Detemir 100 Unit/1 Ml Insuln.pen, 35 UNITS SC BID, (Reported) Lisinopril 20 Mg Tablet, 20 MG PO DAILY, (Reported) Metformin HCl 500 Mg Tablet, 1,000 MG PO DAILY, (Reported) TAKES 2 (500MG) TABLETS Metolazone 5 Mg Tablet, 5 MG PO DAILY, (Reported) Naproxen Sodium 220 Mg Tablet, 440 MG PO DAILY, (Reported) Potassium Chloride 20 Meq Tablet.er, 20 MEQ PO DAILY, (Reported) Patient Home Medication List Home Medication List Reviewed: Yes Physical Exam-Cardiology Physical Exam Vital Signs/I&O 02/18/18 02/18/18 02/18/18 02/18/18 00:18 00:50 01:18 08:00 Temp 100.4 100.6 98.6 100.8 Pulse 114 Resp 16 B/P (MAP) 111/53 (72) Pulse Ox 94 O2 Delivery Room Air 02/18/18 08:16 Pulse Ox 93 O2 Delivery Room Air 02/18/18 00:00 Intake Total 2627.5 ml Balance 2627.5 ml Capillary Refill : Less Than 3 Seconds Constitutional: appears stated age, AAO x 3; No apparent distress; well- developed, well-nourished, other (morbid obesity) HEENT: PERRL; No normal ENT inspection, No TMs normal, No pharynx normal, No scleral icterus (R), No scleral icterus (L), No pale conjunctivae (R), No pale conjunctivae (L), No photophobia, No TM abnormal (R), No TM abnormal (L), No pharyngeal erythema, No tonsillar exudate, No other, No discharge, No EOMI; hearing is well preserved; No hard of hearing; oral hygience is good; No ulceration, No xanthelasmas are seen Neck: No non-tender, No full range of motion, No supple, No normal inspection, No carotid bruit, No limited range of motion, No lymphadenopathy (R), No lymphadenopathy (L), No tender lateral, No tender midline, No thyromegaly, No other; carotid pulses are 2 + bilaterally; No with good upstrokes Respiratory: No accessory muscle use, No respiratory distress, No chest tender , No chest expansion is symmetric; chest is bilaterally symmetric; No lungs clear to percussion; lungs clear to auscultation; No crackles, No rhonchi, No rales, No stridor, No wheezing, No pleural rub, No other Cardiovascular: regular rate-rhythm, edema, S1 and S2 Gastrointestinal: No tender, No soft, No round, No distended, No pulsatile mass , No organomegaly, No guarding, No rebound, No tenderness, No hernia, No mass, No audible bowel sounds, No abnormal bowel sounds, No abdominal bruits, No spleenomegaly, No other Rectal: deferred Extremities: No clubbing, No cyanosis; significant edema, wound (left lower extremity.) Neurologic/Psychiatric: no motor/sensory deficits, alert, normal mood/affect, oriented x 3, power is 5/5 both on sides Skin: No normal color, No warm/dry, No cyanosis, No cool, No diaphoresis, No damp, No ecchymosis, No jaundice, No mottled, No pallor, No rash, No tattoos/ piercings, No ulcerations, No rash on exposed areas, No ulcerations on exposed areas, No other Lymphatic: no adenopathy (neck, axilla or groin) Data Review Labs Laboratory Tests 02/17/18 16:00: Glucometer 137H 02/17/18 18:05: Vancomycin Level Trough 13.2 02/17/18 20:34: Glucometer 94 02/18/18 05:15: White Blood Count 13.1H, Red Blood Count 3.16L, Hemoglobin 9.8L, Hematocrit 30L , Mean Corpuscular Volume 96, Mean Corpuscular Hemoglobin 31, Mean Corpuscular Hemoglobin Concent 32, Red Cell Distribution Width 14.1, Platelet Count 269, Mean Platelet Volume 9.4, Neutrophils (%) (Auto) 71, Lymphocytes (%) (Auto) 13, Monocytes (%) (Auto) 14H, Eosinophils (%) (Auto) 2, Basophils (%) (Auto) 0, Neutrophils # (Auto) 9.3H, Lymphocytes # (Auto) 1.8, Monocytes # (Auto) 1.8H, Eosinophils # (Auto) 0.2, Basophils # (Auto) 0.0, Sodium Level 137, Potassium Level 3.5L, Chloride Level 106, Carbon Dioxide Level 23, Anion Gap 8, Blood Urea Nitrogen 9, Creatinine 0.78, Estimat Glomerular Filtration Rate > 60, BUN/ Creatinine Ratio 12, Glucose Level 124H, Calcium Level 7.7L 02/18/18 05:58: Glucometer 119H Microbiology 02/11/18 Blood Culture - Final, Complete No growth A/P-Cardiology Assessment/Admission Diagnosis Cellulitis, Nonhealing ulcers, Diabetes, Critical limb ischemia, Morbid obesity Plan This is a 47-year-old patient with morbid obesity and diabetes with severe cellulitis and left lower extremity ulcers. Aggressive wound care management by Dr. Vu and on IV antibiotics by Dr. Ly. Slow/no improvement in lower extremity ulcers was noted. Arterial ultrasound shows possibility of high -grade PAD and left lower extremity. However due to significant obesity pressures and segmental wave forms could not be noted. I've discussed at length with the patient, nursing staff, Dr. Ly and Dr. Vu. Unfortunately our catheter lab table, upper limit for weight is [id number] pounds. The patient weighs over 475 pounds, therefore patient safety can be compromised if we attempt peripheral angiography in over cardiac catheterization lab. I will discuss with other hospitals including and [place], to see if their Bleach Analyst can handle 475 pound patient. I will also recommend peripheral CT angiography. I'll start medical therapy with dual antiplatelet therapy and high-dose statins. Thank you for your consultation. Please call me if you have any questions. German Bauer MD, FACP, FACC, FSCAI, FHRS, CCDS Interventional Cardiology Cardiac Electrophysiology Vascular Medicine and Endovascular Interventions Clinical Quality Measures DVT/VTE Risk/Contraindication: Risk Factor Score Per Nursin RFS Level Per Nursing on Admit: 4+=Very High Panfilo BAUER MD Feb 18, 2018 9:21 am
[2018-02-18] MEDS: DOCUSATE SODIUM 100 MG (COLACE) CAP PO SCH ×2 (09:57→10:24)
[2018-02-18] MEDS: oxyCODONE/APAP 7.5-325 MG (PERCOCET 7.5) TABLET PO PRN ×2 (09:58→17:48)
[2018-02-18] MEDS: SILVER SULFADIAZINE 400 GM CREAM TOP SCH (10:14)
[2018-02-18] MEDS: inSUlin DETERMIR 1 UNIT/0.01 ML (LEVEMIR) CHARGE PER UNIT SQ SCH ×2 (10:14→20:44)
[2018-02-18] MEDS: SENNA W/DOCUSATE (SENOKOT S) TABLET PO SCH ×2 (10:24→19:36)
[2018-02-18] MEDS: POLYETHYLENE GLYCOL 17 GM (MIRALAX) PACK PO SCH ×2 (10:24→19:35)
--- NOTE | 2018-02-18 15:05 | Progress Note ---
Subjective Time Seen by a Provider: 14:41 Subjective/Events-last exam Pt seen and examined, thinks pain is about the same. They are wrapping and using Silver Sulfadene. Review of Systems General: No Chills, No Night Sweats Pulmonary: No Dyspnea, No Cough Cardiovascular: No: Chest Pain, Palpitations Gastrointestinal: No: Nausea, Vomiting, Abdominal Pain Objective Exam Vital Signs Date Time Temp Pulse Resp B/P (MAP) Pulse Ox O2 Delivery O2 Flow Rate FiO2 02/18/18 12:00 96 Room Air 02/18/18 08:16 93 Room Air 02/18/18 08:00 100.8 114 16 111/53 (72) 94 Room Air 02/18/18 08:00 Room Air 02/18/18 01:18 98.6 02/18/18 00:50 100.6 02/18/18 00:18 100.4 02/17/18 20:00 Room Air 02/17/18 19:07 93 Room Air 02/17/18 16:15 99.8 102 24 128/60 (82) 98 Room Air 02/17/18 15:36 93 Room Air I & O 02/18/18 07:00 Intake Total 4162.5 ml Balance 4162.5 ml Capillary Refill : Less Than 3 Seconds General Appearance: WD/WN, Mild Distress (left leg pain), Obese (super morbidly ) HEENT: PERRL/EOMI Respiratory: Chest Non Tender, Lungs Clear, Normal Breath Sounds Cardiovascular: Regular Rate, Rhythm, No Murmur Gastrointestinal: normal bowel sounds, soft Extremity: Calf Tenderness (left- hot to touch- woody edema- erythema- cellulitis), Pedal Edema (pt has increased edema on left foot, with erythema and warmth; no obvious fluctuance), Other (bullae and skin covering 40% of area below the knee, below that it is red and in some places purple) Neurologic/Psychiatric: Alert, Oriented x3 Results Lab Laboratory Tests 02/17/18 16:00: Glucometer 137H 02/17/18 18:05: Vancomycin Level Trough 13.2 02/17/18 20:34: Glucometer 94 02/18/18 05:15: White Blood Count 13.1H, Red Blood Count 3.16L, Hemoglobin 9.8L, Hematocrit 30L , Mean Corpuscular Volume 96, Mean Corpuscular Hemoglobin 31, Mean Corpuscular Hemoglobin Concent 32, Red Cell Distribution Width 14.1, Platelet Count 269, Mean Platelet Volume 9.4, Neutrophils (%) (Auto) 71, Lymphocytes (%) (Auto) 13, Monocytes (%) (Auto) 14H, Eosinophils (%) (Auto) 2, Basophils (%) (Auto) 0, Neutrophils # (Auto) 9.3H, Lymphocytes # (Auto) 1.8, Monocytes # (Auto) 1.8H, Eosinophils # (Auto) 0.2, Basophils # (Auto) 0.0, Sodium Level 137, Potassium Level 3.5L, Chloride Level 106, Carbon Dioxide Level 23, Anion Gap 8, Blood Urea Nitrogen 9, Creatinine 0.78, Estimat Glomerular Filtration Rate > 60, BUN/ Creatinine Ratio 12, Glucose Level 124H, Calcium Level 7.7L 02/18/18 05:58: Glucometer 119H 02/18/18 13:13: Glucometer 146H Microbiology 02/11/18 Blood Culture - Final, Complete No growth Assessment/Plan Assessment/Plan Assessment/Plan Cellulitis and Venous Stasis Peripheral Arterial Disease - demonstrated on Arterial doppler He may need US of left foot to make sure this is just edema and not an abscess forming. Left lower leg just does not seem to be getting better; my concern with stenting his Iliac artery is that he'll double the in-flow but won't change the outflow, thereby making the cellulitis worse. The superficial layer of skin on his leg is and blocking the topical treatment. With pt in his bed I did some sharp debridement and blunt debridement; basically taking off the superficial layer of skin, in order to get the Silver sulfadene in direct contact. I used some scissors and basically my fingers to pull off all the skin. The area of skin removal was appx 40cm by 20 cm. Pt was given some pain medications while I was doing this, otherwise tolerated it well. Clinical Quality Measures DVT/VTE Risk/Contraindication: Risk Factor Score Per Nursin RFS Level Per Nursing on Admit: 4+=Very High PONCE KANG DO Feb 18, 2018 15:05
[2018-02-18 15:45] VITALS: BP 132/62
--- NOTE | 2018-02-18 16:05 | Diagnostic Imaging Report ---
INDICATION: Swelling in the left leg. Study is performed to evaluate for fluid collection or abscess. EXAMINATION: Sonographic interrogation of the area of swelling labeled "top of the left foot" was performed. FINDINGS: There is significant subcutaneous edema throughout the tissues. No well-formed fluid collection or abscess is seen. IMPRESSION: Significant subcutaneous edema. No abscess is identified. Dictated by: Dictated on workstation # [id number]
--- NOTE | 2018-02-18 17:35 | Progress Note (SOAP) ---
Subjective Subjective Date Seen by Provider: Feb 18, 2018 Time Seen by Provider: 09:00 47 yo M admitted for sepsis due to cellulitis- -In more pain today with kerlix wrap changing -discouraged due to poor progres. Going to the bathroom without issue. No issues breathing, denies vomiting Feels warm at times. pain still located in his calf and dorsum of left foot. Review of Systems General: No Chills, No Night Sweats HEENT: No Head Aches, No Visual Changes Pulmonary: No Dyspnea, No Cough Cardiovascular: No: Chest Pain, Palpitations Gastrointestinal: No: Nausea, Vomiting, Abdominal Pain Genitourinary: No Dysuria, No Frequency Musculoskeletal: leg pain (Slightly less than before.) Neurological: Weakness; No: Numbness, Confusion Objective Exam Vital Signs Vital Signs Date Time Temp Pulse Resp B/P (MAP) Pulse Ox O2 Delivery O2 Flow Rate FiO2 02/18/18 12:00 96 Room Air 02/18/18 08:16 93 Room Air 02/18/18 08:00 100.8 114 16 111/53 (72) 94 Room Air 02/18/18 08:00 Room Air 02/18/18 01:18 98.6 02/18/18 00:50 100.6 02/18/18 00:18 100.4 02/17/18 20:00 Room Air 02/17/18 19:07 93 Room Air I & O 02/18/18 07:00 Intake Total 4162.5 ml Balance 4162.5 ml General Appearance: WD/WN, Mild Distress (left leg pain), Obese (super morbidly ) Eyes: Bilateral Eye PERRL, Bilateral Eye EOMI HEENT: PERRL/EOMI Respiratory: Chest Non Tender, Lungs Clear, Normal Breath Sounds Cardiovascular: Regular Rate, Rhythm, No Murmur Gastrointestinal: Non Tender Rectal: Deferred Back: Normal Inspection Extremity: Calf Tenderness (left- hot to touch- woody edema- erythema- cellulitis), Pedal Edema (pt has increased edema on left foot, with erythema and warmth; no obvious fluctuance), Other (bullae and skin covering 40% of area below the knee, below that it is red and in some places purple) Neurologic/Psychiatric: Alert, Oriented x3 Results Lab Laboratory Tests 02/17/18 18:05: Vancomycin Level Trough 13.2 02/17/18 20:34: Glucometer 94 02/18/18 05:15: White Blood Count 13.1H, Red Blood Count 3.16L, Hemoglobin 9.8L, Hematocrit 30L , Mean Corpuscular Volume 96, Mean Corpuscular Hemoglobin 31, Mean Corpuscular Hemoglobin Concent 32, Red Cell Distribution Width 14.1, Platelet Count 269, Mean Platelet Volume 9.4, Neutrophils (%) (Auto) 71, Lymphocytes (%) (Auto) 13, Monocytes (%) (Auto) 14H, Eosinophils (%) (Auto) 2, Basophils (%) (Auto) 0, Neutrophils # (Auto) 9.3H, Lymphocytes # (Auto) 1.8, Monocytes # (Auto) 1.8H, Eosinophils # (Auto) 0.2, Basophils # (Auto) 0.0, Sodium Level 137, Potassium Level 3.5L, Chloride Level 106, Carbon Dioxide Level 23, Anion Gap 8, Blood Urea Nitrogen 9, Creatinine 0.78, Estimat Glomerular Filtration Rate > 60, BUN/ Creatinine Ratio 12, Glucose Level 124H, Calcium Level 7.7L 02/18/18 05:58: Glucometer 119H 02/18/18 13:13: Glucometer 146H 02/18/18 15:49: Glucometer 104 Microbiology 02/11/18 Blood Culture - Final, Complete No growth Assessment/Plan Assessment/Plan Admission Dx left leg cellulitis Assessment and Plan 47 yo M sepsis due to left leg cellulitis- IV ceftriaxone- discontinued 02/13/18 started zosyn 02/13/18 as pt is Diabetic with increased risk for polymicrobial. Vancomycin started 02/14/18 (I87.2) Venous insufficiency (chronic) (peripheral)- elevate legs, weight loss recommended I73.9- PAD- Dr. Richey consulted for intervention- appears to be stenosis in iliac artery region- likely contributing to slow improvement of cellulitis. (E66.01) Morbid (severe) obesity due to excess calories- weight loss recommended- consider bariatric surgery (I10) Essential (primary) hypertension- resume BP medications (E11.9) Type 2 diabetes mellitus- continue insulin regimen (K21.9) Gastro-esophageal reflux disease without esophagitis - monitor symptoms. -hypokalemia- replacing prn Dispo: admitted for left leg cellulitis- poor progress- plan to get CT angio of vasculature of iliac (left leg) and possible cath to improve arterial flow Dr. Vu consulted for wound management - silvadene topically- lovenox BID for dvt ppx Problems: (1) Cellulitis Qualifiers: Qualified Codes: L03.116 - Cellulitis of left lower limb (2) PAD (peripheral artery disease) Assessment & Plan: arterial u/s- stenosis noted proximal to common femoral artery- Dr. Bauer consulted for intervention. (3) Sepsis Qualifiers: Qualified Codes: A41.9 - Sepsis, unspecified organism (4) JEFERSON on CPAP (5) Morbid obesity with BMI of 60.0-69.9, adult (6) Constipation Qualifiers: Qualified Codes: K59.01 - Slow transit constipation (7) Hypokalemia Admission Dx left leg cellulitis Clinical Quality Measures Admission Status Admission Dx left leg cellulitis DVT/VTE Risk/Contraindication: Risk Factor Score Per Nursin RFS Level Per Nursing on Admit: 4+=Very High HARDY PAL MD Feb 18, 2018 17:35
[2018-02-18] MEDS: ATORVASTATIN 80 MG (LIPITOR) TABLET PO SCH (20:43)
[2018-02-19] MEDS: VANCOMYCIN INJECTION 1,750 MG in NS IV 500 ML 500 ML IV SCH ×3 (03:30→18:43)
[2018-02-19] MEDS: PIPERACILLIN/TAZO 4.5 GM/NS 100 ML IV SCH ×6 (03:31→18:43)
[2018-02-19] MEDS: oxyCODONE/APAP 7.5-325 MG (PERCOCET 7.5) TABLET PO PRN ×3 (04:20→17:51)
[2018-02-19] MEDS: ENOXAPARIN 60 MG/0.6 ML (LOVENOX) SYR SC SCH ×2 (06:00→17:51)
[2018-02-19] MEDS: inSUlin ASPART (NovoLOG) 1 UNIT/0.01 ML (CHARGE PER UNIT) SC SCH ×4 (06:02→21:00)
[2018-02-19 08:00] VITALS: BP 124/85
[2018-02-19] MEDS: RT-ALBUTEROL SULF 2.5 MG/3 ML PRE-MIX VIAL INH SCH ×4 (09:25→18:26)
[2018-02-19] MEDS: inSUlin DETERMIR 1 UNIT/0.01 ML (LEVEMIR) CHARGE PER UNIT SQ SCH ×2 (09:29→21:45)
[2018-02-19] MEDS: ASPIRIN 81 MG CHEW (CHILDREN'S ASA) PO SCH (09:29)
[2018-02-19] MEDS: KCL 10 MEQ TAB (MICRO K) PO SCH (09:29)
[2018-02-19] MEDS: CLOPIDOGREL 75 MG (PLAVIX) TABLET PO SCH (09:29)
[2018-02-19] MEDS: SENNA W/DOCUSATE (SENOKOT S) TABLET PO SCH ×2 (09:30→21:00)
[2018-02-19] MEDS: DOCUSATE SODIUM 100 MG (COLACE) CAP PO SCH ×2 (09:30→21:00)
[2018-02-19] MEDS: POLYETHYLENE GLYCOL 17 GM (MIRALAX) PACK PO SCH ×2 (09:30→21:00)
[2018-02-19] MEDS: SILVER SULFADIAZINE 400 GM CREAM TOP SCH (09:30)
--- NOTE | 2018-02-19 09:51 | Cardiology Progress Note ---
Cardiology SOAP Progress Note Subjective: No chest pain or shortness of breath. Objective: I&O/Vital Signs 02/19/18 02/19/18 02/19/18 08:00 08:00 10:44 Temp 97.6 Pulse 91 Resp 18 B/P (MAP) 124/85 (98) Pulse Ox 96 98 O2 Delivery Room Air Room Air Room Air 02/19/18 00:00 Intake Total 2007.5 ml Balance 2007.5 ml Weight (Pounds): 485 Weight (Ounces): 9.0 Weight (Calculated Kilograms): 220.246737 Constitutional: appears stated age, AAO x 3; No apparent distress; well- developed, well-nourished, other (morbid obesity) Respiratory: No accessory muscle use, No respiratory distress, No chest tender , No chest expansion is symmetric; chest is bilaterally symmetric; No lungs clear to percussion; lungs clear to auscultation; No crackles, No rhonchi, No rales, No stridor, No wheezing, No pleural rub, No other Cardiovascular: regular rate-rhythm, edema, S1 and S2 Gastrointestional: No tender, No soft, No round, No distended, No pulsatile mass, No organomegaly, No guarding, No rebound, No tenderness, No hernia, No mass, No audible bowel sounds, No abnormal bowel sounds, No abdominal bruits, No spleenomegaly, No other Extremities: No clubbing, No cyanosis; significant edema, wound (left lower extremity.) Neurologic/Psychiatric: no motor/sensory deficits, alert, normal mood/affect, oriented x 3, power is 5/5 both on sides Skin: No normal color, No warm/dry, No cyanosis, No cool, No diaphoresis, No damp, No ecchymosis, No jaundice, No mottled, No pallor, No rash, No tattoos/ piercings, No ulcerations, No rash on exposed areas, No ulcerations on exposed areas, No other Results/Procedures: Labs Laboratory Tests 02/18/18 15:49: Glucometer 104 02/18/18 20:31: Glucometer 116H 02/19/18 05:54: Glucometer 112H 02/19/18 10:55: Glucometer 130H Microbiology 02/11/18 Blood Culture - Final, Complete No growth A/P: Assessment/Dx: Cellulitis, Nonhealing ulcers, Diabetes, Critical limb ischemia, Morbid obesity Plan: This is a 47-year-old patient with morbid obesity and diabetes with severe cellulitis and left lower extremity ulcers. Aggressive wound care management by Dr. Vu and on IV antibiotics including vancomycin and Zosyn by Dr. Ly. Slow/no improvement in lower extremity ulcers was noted. Arterial ultrasound shows possibility of high-grade PAD in the left lower extremity. However due to significant obesity pressures and segmental wave forms could not be noted. I've discussed at length with the patient, nursing staff, Dr. Ly and Dr. Vu. Unfortunately our collaborating supervising physician table, upper limit for weight is [id number] pounds. The patient weighs over 475 pounds, therefore patient safety can be compromised if we attempt peripheral angiography in our cardiac catheterization lab. CT angiography could not be done due to morbid obesity. Patient is on aspirin, Plavix and high-dose statin. I discussed with [facility] and they are willing to accept the patient as an inpatient transfer for treatment of possible critical limb ischemia with peripheral angiography and intervention. However, the patient is hesitant to go to another hospital. Will defer to Dr. Ly. Thank you for your consultation. Please call me if you have any questions. German Bauer MD, FACP, FACC, FSCAI, FHRS, CCDS Interventional Cardiology Cardiac Electrophysiology Vascular Medicine and Endovascular Interventions Panfilo BAUER MD Feb 19, 2018 9:51 am
[2018-02-19] MEDS: fentaNYL INJECTION 100 MCG/2 ML AMP IVP PRN ×2 (15:50→21:35)
[2018-02-19 16:05] VITALS: BP 123/58
--- NOTE | 2018-02-19 20:10 | Progress Note ---
Subjective Time Seen by a Provider: 15:30 Subjective/Events-last exam Pt seen and examined, states the pain in his leg is better. Review of Systems General: No Chills, No Night Sweats Pulmonary: No Dyspnea, No Cough Cardiovascular: No: Chest Pain, Palpitations Gastrointestinal: No: Nausea, Vomiting, Abdominal Pain Objective Exam Vital Signs Date Time Temp Pulse Resp B/P (MAP) Pulse Ox O2 Delivery O2 Flow Rate FiO2 02/19/18 18:27 100 Room Air 02/19/18 16:05 97.2 101 22 123/58 (79) 98 Room Air 02/19/18 14:44 97 Room Air 02/19/18 10:44 98 Room Air 02/19/18 08:00 97.6 91 18 124/85 (98) 96 Room Air 02/19/18 08:00 Room Air 02/18/18 20:55 Room Air I & O 02/19/18 07:00 Intake Total 2007.5 ml Output Total 700 ml Balance 1307.5 ml Capillary Refill : Less Than 3 Seconds General Appearance: No Apparent Distress, WD/WN, Obese (super morbidly) HEENT: PERRL/EOMI Respiratory: Chest Non Tender, Lungs Clear, Normal Breath Sounds Cardiovascular: Regular Rate, Rhythm, No Murmur Gastrointestinal: normal bowel sounds, soft Extremity: Calf Tenderness (left- hot to touch- woody edema- erythema- cellulitis), Pedal Edema (pt has increased edema on left foot, with erythema and warmth; no obvious fluctuance), Other (bullae and skin covering 40% of area below the knee, below that it is red and in some places purple) Neurologic/Psychiatric: Alert, Oriented x3 Results Lab Laboratory Tests 02/18/18 20:31: Glucometer 116H 02/19/18 05:54: Glucometer 112H 02/19/18 10:55: Glucometer 130H 02/19/18 16:06: Glucometer 144H Microbiology 02/11/18 Blood Culture - Final, Complete No growth Assessment/Plan Assessment/Plan Assessment/Plan Cellulitis/Venous stasis PAD I think pt's problem is related to the venous stasis not allowing the cellulitis to improve. I spoke with Dr. Ly and Dr. Bauer, to let them know my opinion about fixing arterial lesion at this time. Pt doesn't have ulcerations that look like vascular insufficiency; he is just not clearing fluid or cellulitis out. Continue local wound care; seems to be improving, definitely not getting worse. Clinical Quality Measures DVT/VTE Risk/Contraindication: Risk Factor Score Per Nursin RFS Level Per Nursing on Admit: 4+=Very High PONCE KANG DO Feb 19, 2018 20:10
[2018-02-19] MEDS: ATORVASTATIN 80 MG (LIPITOR) TABLET PO SCH (21:45)
--- NOTE | 2018-02-19 22:15 | Progress Note (SOAP) ---
Subjective Subjective Date Seen by Provider: Feb 19, 2018 Time Seen by Provider: 07:00 47 yo M admitted for sepsis due to cellulitis- -pain still fluctuates in his left leg. no chest pain no issues eating some difficulty urinating onto himself due to edema Review of Systems General: No Chills, No Night Sweats HEENT: No Head Aches, No Visual Changes Pulmonary: No Dyspnea, No Cough Cardiovascular: No: Chest Pain, Palpitations Gastrointestinal: No: Nausea, Vomiting, Abdominal Pain Genitourinary: No Dysuria, No Frequency Musculoskeletal: leg pain (Slightly less than before.) Neurological: Weakness; No: Numbness, Confusion Objective Exam Vital Signs Vital Signs Date Time Temp Pulse Resp B/P (MAP) Pulse Ox O2 Delivery O2 Flow Rate FiO2 02/19/18 18:27 100 Room Air 02/19/18 16:05 97.2 101 22 123/58 (79) 98 Room Air 02/19/18 14:44 97 Room Air 02/19/18 10:44 98 Room Air 02/19/18 08:00 97.6 91 18 124/85 (98) 96 Room Air 02/19/18 08:00 Room Air I & O 02/19/18 07:00 Intake Total 2007.5 ml Output Total 700 ml Balance 1307.5 ml General Appearance: No Apparent Distress, WD/WN, Obese (super morbidly) Eyes: Bilateral Eye PERRL, Bilateral Eye EOMI HEENT: PERRL/EOMI Respiratory: Chest Non Tender, Lungs Clear, Normal Breath Sounds Cardiovascular: Regular Rate, Rhythm, No Murmur Gastrointestinal: Non Tender Rectal: Deferred Back: Normal Inspection Extremity: Calf Tenderness (left- hot to touch- woody edema- erythema- cellulitis), Pedal Edema (pt has increased edema on left foot, with erythema and warmth; no obvious fluctuance), Other (wrapped ) Neurologic/Psychiatric: Alert, Oriented x3 Results Lab Laboratory Tests 02/19/18 05:54: Glucometer 112H 02/19/18 10:55: Glucometer 130H 02/19/18 16:06: Glucometer 144H 02/19/18 20:40: Glucometer 142H Microbiology 02/11/18 Blood Culture - Final, Complete No growth Assessment/Plan Assessment/Plan Admission Dx left leg cellulitis Assessment and Plan 47 yo M left leg cellulitis/erysipelas- IV ceftriaxone- discontinued 02/13/18 started zosyn 02/13/18. Vancomycin started 02/14/18 (I87.2) Venous insufficiency (chronic) (peripheral)- elevate legs, weight loss recommended- making cellulitis slow to heal. I73.9- PAD- Dr. Bauer consulted for intervention- appears to be stenosis in iliac artery region- likely contributing to slow improvement of cellulitis. (E66.01) Morbid (severe) obesity due to excess calories- weight loss recommended- consider bariatric surgery (I10) Essential (primary) hypertension- resume BP medications (E11.9) Type 2 diabetes mellitus- good control, continue regimen (K21.9) Gastro-esophageal reflux disease without esophagitis - monitor symptoms. -hypokalemia- replacing prn Dispo: admitted for left leg cellulitis- poor progress- will need to get CT angio of vasculature of iliac (left leg) and possible cath to improve arterial flow right now will monitor progress of his left leg cellulitis. Dr. Vu consulted for wound management - silvadene topically- -will consider referral to [facility] if condition worsens. lovenox BID for dvt ppx Problems: (1) Cellulitis Qualifiers: Qualified Codes: L03.116 - Cellulitis of left lower limb (2) PAD (peripheral artery disease) Assessment & Plan: arterial u/s- stenosis noted proximal to common femoral artery- Dr. Bauer consulted for intervention. (3) Sepsis Qualifiers: Qualified Codes: A41.9 - Sepsis, unspecified organism (4) JEFERSON on CPAP (5) Morbid obesity with BMI of 60.0-69.9, adult (6) Constipation Qualifiers: Qualified Codes: K59.01 - Slow transit constipation (7) Hypokalemia Admission Dx left leg cellulitis Clinical Quality Measures Admission Status Admission Dx left leg cellulitis DVT/VTE Risk/Contraindication: Risk Factor Score Per Nursin RFS Level Per Nursing on Admit: 4+=Very High HARDY PAL MD Feb 19, 2018 22:15
[2018-02-20 00:05] VITALS: BP 133/59
[2018-02-20] MEDS: oxyCODONE/APAP 7.5-325 MG (PERCOCET 7.5) TABLET PO PRN ×4 (00:44→21:39)
[2018-02-20] MEDS: VANCOMYCIN INJECTION 1,750 MG in NS IV 500 ML 500 ML IV SCH ×3 (03:47→18:42)
[2018-02-20] MEDS: PIPERACILLIN/TAZO 4.5 GM/NS 100 ML IV SCH ×6 (03:48→18:41)
[2018-02-20 04:00] VITALS: BP 140/63
[2018-02-20] MEDS: ENOXAPARIN 60 MG/0.6 ML (LOVENOX) SYR SC SCH ×2 (05:39→18:18)
[2018-02-20] MEDS: KCL 10 MEQ TAB (MICRO K) PO SCH (06:01)
[2018-02-20 06:06] LABS: BASOPHILS % (AUTO) 0 % (0-10); EOSINOPHILS # (AUTO) 0.4 10^3/uL (0.0-0.3); EOSINOPHILS % (AUTO) 4 % (0-10); HEMATOCRIT 31 % (40-54); HEMOGLOBIN 9.9 G/DL (13.3-17.7); LYMPHOCYTES # (AUTO) 1.7 X 10^3 (1.0-4.0); LYMPHOCYTES % (AUTO) 20 % (12-44); MEAN CORPUSCULAR HEMOGLOBIN 32 PG (25-34); MEAN CORPUSCULAR HGB CONC 33 G/DL (32-36); MEAN CORPUSCULAR VOLUME 97 FL (80-99); MEAN PLATELET VOLUME 9.4 FL (7.4-10.4); MONOCYTES # (AUTO) 1.1 X 10^3 (0.0-1.0); MONOCYTES % (AUTO) 14 % (0-12); NEUTROPHILS # (AUTO) 5.2 X 10^3 (1.8-7.8); NEUTROPHILS % (AUTO) 62 % (42-75); PLATELET COUNT 331 10^3/uL (130-400); RED BLOOD COUNT 3.13 10^6/uL (4.35-5.85); RED CELL DISTRIBUTION WIDTH 13.7 % (10.0-14.5); WHITE BLOOD COUNT 8.4 10^3/uL (4.3-11.0)
[2018-02-20] MEDS: inSUlin ASPART (NovoLOG) 1 UNIT/0.01 ML (CHARGE PER UNIT) SC SCH ×4 (06:11→20:41)
[2018-02-20 06:24] LABS: ALANINE AMINOTRANSFERASE 23 U/L (0-55); ALBUMIN 2.3 GM/DL (3.2-4.5); ALKALINE PHOSPHATASE 84 U/L (40-136); BILIRUBIN,TOTAL 0.6 MG/DL (0.1-1.0); BUN/CREATININE RATIO 14; CALCIUM 7.9 MG/DL (8.5-10.1); CARBON DIOXIDE 23 MMOL/L (21-32); CHLORIDE 108 MMOL/L (98-107); CREATININE SERUM 0.78 MG/DL (0.60-1.30); GFR ESTIMATED > 60; GLUCOSE 111 MG/DL (70-105); SODIUM 137 MMOL/L (135-145)
[2018-02-20] MEDS: RT-ALBUTEROL SULF 2.5 MG/3 ML PRE-MIX VIAL INH SCH (06:53)
[2018-02-20 08:00] VITALS: BP 120/54
[2018-02-20] MEDS: DOCUSATE SODIUM 100 MG (COLACE) CAP PO SCH ×2 (09:07→19:14)
[2018-02-20] MEDS: POLYETHYLENE GLYCOL 17 GM (MIRALAX) PACK PO SCH ×2 (09:07→19:14)
[2018-02-20] MEDS: SENNA W/DOCUSATE (SENOKOT S) TABLET PO SCH ×2 (09:07→19:14)
--- NOTE | 2018-02-20 09:08 | Cardiology Progress Note ---
Cardiology SOAP Progress Note Subjective: Stable with no cardiac symptoms. Objective: I&O/Vital Signs 02/21/18 02/21/18 08:00 08:00 Temp 98.2 Pulse 97 Resp 20 B/P (MAP) 119/58 (78) Pulse Ox 95 O2 Delivery Room Air Room Air 02/21/18 00:00 Intake Total 1657.5 ml Output Total 700 ml Balance 957.5 ml Weight (Pounds): 485 Weight (Ounces): 9.0 Weight (Calculated Kilograms): 220.605012 Constitutional: appears stated age, AAO x 3; No apparent distress; well- developed, well-nourished, other (morbid obesity) Respiratory: No accessory muscle use, No respiratory distress, No chest tender , No chest expansion is symmetric; chest is bilaterally symmetric; No lungs clear to percussion; lungs clear to auscultation; No crackles, No rhonchi, No rales, No stridor, No wheezing, No pleural rub, No other Cardiovascular: regular rate-rhythm, edema, S1 and S2 Gastrointestional: No tender, No soft, No round, No distended, No pulsatile mass, No organomegaly, No guarding, No rebound, No tenderness, No hernia, No mass, No audible bowel sounds, No abnormal bowel sounds, No abdominal bruits, No spleenomegaly, No other Extremities: No clubbing, No cyanosis; significant edema, wound (left lower extremity.) Neurologic/Psychiatric: no motor/sensory deficits, alert, normal mood/affect, oriented x 3, power is 5/5 both on sides Skin: No normal color, No warm/dry, No cyanosis, No cool, No diaphoresis, No damp, No ecchymosis, No jaundice, No mottled, No pallor, No rash, No tattoos/ piercings, No ulcerations, No rash on exposed areas, No ulcerations on exposed areas, No other Results/Procedures: Labs Laboratory Tests 02/20/18 16:14: Glucometer 112H 02/20/18 20:31: Glucometer 130H 02/21/18 06:00: Glucometer 119H 02/21/18 11:18: Glucometer 91 Microbiology 02/11/18 Blood Culture - Final, Complete No growth A/P: Assessment/Dx: Cellulitis, Nonhealing ulcers, Diabetes, Critical limb ischemia, Morbid obesity Plan: This is a 47-year-old patient with morbid obesity and diabetes with severe cellulitis and left lower extremity ulcers. Aggressive wound care management by Dr. Vu and on IV antibiotics including vancomycin and Zosyn by Dr. Ly. Slow/no improvement in lower extremity ulcers was noted. Arterial ultrasound shows possibility of high-grade PAD in the left lower extremity. However due to significant obesity pressures and segmental wave forms could not be noted. I've discussed at length with the patient, nursing staff, Dr. Ly and Dr. Vu. Unfortunately our outside laborer table, upper limit for weight is 151620 pounds. The patient weighs over 475 pounds, therefore patient safety can be compromised if we attempt peripheral angiography in our cardiac catheterization lab. CT angiography could not be done due to morbid obesity. Patient is on aspirin, Plavix and high-dose statin. Thank you for your consultation. Please call me if you have any questions. German Bauer MD, FACP, FACC, FSCAI, FHRS, CCDS Interventional Cardiology Cardiac Electrophysiology Vascular Medicine and Endovascular Interventions Panfilo BAUER MD Feb 20, 2018 09:08
[2018-02-20] MEDS: ASPIRIN 81 MG CHEW (CHILDREN'S ASA) PO SCH (09:12)
[2018-02-20] MEDS: CLOPIDOGREL 75 MG (PLAVIX) TABLET PO SCH (09:12)
[2018-02-20] MEDS: inSUlin DETERMIR 1 UNIT/0.01 ML (LEVEMIR) CHARGE PER UNIT SQ SCH ×2 (09:12→20:49)
[2018-02-20] MEDS: SILVER SULFADIAZINE 400 GM CREAM TOP SCH (09:13)
--- NOTE | 2018-02-20 09:45 | Progress Note (SOAP) ---
Subjective Subjective Date Seen by Provider: Feb 20, 2018 Time Seen by Provider: 08:10 47 yo M admitted for sepsis due to cellulitis- -pain is better - he is able to move his left foot and toes with minimal pain. Denies fevers, chills, nausea. Tried to get up and sit in the chair but it was not comfortable- his legs are too long and extend over the leg raise. -He feels like he is improving slowly. He would like to pursue the arterial interventions after cellulitis has calmed down. Review of Systems General: No Chills, No Night Sweats HEENT: No Head Aches, No Visual Changes Pulmonary: No Dyspnea, No Cough Cardiovascular: No: Chest Pain, Palpitations Gastrointestinal: No: Nausea, Vomiting, Abdominal Pain Genitourinary: No Dysuria, No Frequency Musculoskeletal: leg pain (Slightly less than before.) Neurological: Weakness; No: Numbness, Confusion Objective Exam Vital Signs Vital Signs Date Time Temp Pulse Resp B/P (MAP) Pulse Ox O2 Delivery O2 Flow Rate FiO2 02/20/18 08:00 99.2 99 22 120/54 (76) 95 Room Air 02/20/18 06:53 96 Room Air 02/20/18 04:00 98.9 88 20 140/63 (88) 96 Room Air 02/20/18 00:05 99.0 104 20 133/59 (83) 96 Room Air 02/19/18 20:30 Room Air 02/19/18 18:27 100 Room Air 02/19/18 16:05 97.2 101 22 123/58 (79) 98 Room Air 02/19/18 14:44 97 Room Air 02/19/18 10:44 98 Room Air I & O 02/20/18 07:00 Intake Total 1090 ml Output Total 2850 ml Balance -1760 ml General Appearance: No Apparent Distress, WD/WN, Obese (morbidly) Eyes: Bilateral Eye PERRL, Bilateral Eye EOMI HEENT: PERRL/EOMI Neck: Non Tender, Supple Respiratory: Chest Non Tender, Lungs Clear, Normal Breath Sounds Cardiovascular: Regular Rate, Rhythm, No Murmur Gastrointestinal: Non Tender Rectal: Deferred Back: Normal Inspection Extremity: Calf Tenderness (left- hot to touch- woody edema- erythema- cellulitis), Pedal Edema (pt has increased edema on left foot, with erythema and warmth; no obvious fluctuance), Other (decreased oozing of yellow fluid- smaller- not as painful) Neurologic/Psychiatric: Alert, Oriented x3 Results Lab Laboratory Tests 02/19/18 10:55: Glucometer 130H 02/19/18 16:06: Glucometer 144H 02/19/18 20:40: Glucometer 142H 02/20/18 05:30: White Blood Count 8.4, Red Blood Count 3.13L, Hemoglobin 9.9L, Hematocrit 31L, Mean Corpuscular Volume 97, Mean Corpuscular Hemoglobin 32, Mean Corpuscular Hemoglobin Concent 33, Red Cell Distribution Width 13.7, Platelet Count 331, Mean Platelet Volume 9.4, Neutrophils (%) (Auto) 62, Lymphocytes (%) (Auto) 20, Monocytes (%) (Auto) 14H, Eosinophils (%) (Auto) 4, Basophils (%) (Auto) 0, Neutrophils # (Auto) 5.2, Lymphocytes # (Auto) 1.7, Monocytes # (Auto) 1.1H, Eosinophils # (Auto) 0.4H, Basophils # (Auto) 0.0, Sodium Level 137, Potassium Level 4.0, Chloride Level 108H, Carbon Dioxide Level 23, Anion Gap 6, Blood Urea Nitrogen 11, Creatinine 0.78, Estimat Glomerular Filtration Rate > 60, BUN/ Creatinine Ratio 14, Glucose Level 111H, Calcium Level 7.9L, Corrected Calcium 9.3, Total Bilirubin 0.6, Aspartate Amino Transf (AST/SGOT) 22, Alanine Aminotransferase (ALT/SGPT) 23, Alkaline Phosphatase 84, Total Protein 6.0L, Albumin 2.3L 02/20/18 05:47: Glucometer 122H Microbiology 02/11/18 Blood Culture - Final, Complete No growth Assessment/Plan Assessment/Plan Admission Dx left leg cellulitis Assessment and Plan 47 yo M left leg cellulitis/erysipelas- zosyn 02/13/18-->. Vancomycin started ---> (I87.2) Venous insufficiency (chronic) (peripheral)- elevate legs, weight loss recommended- making cellulitis slow to heal. I73.9- PAD- Dr. Bauer consulted for intervention- appears to be stenosis in iliac artery region- likely contributing to slow improvement of cellulitis. continue ASA, plavix, statin (E66.01) Morbid (severe) obesity due to excess calories- weight loss recommended- consider bariatric surgery (I10) Essential (primary) hypertension- resume BP medications (E11.9) Type 2 diabetes mellitus- good control, continue regimen (K21.9) Gastro-esophageal reflux disease without esophagitis - monitor symptoms. -hypokalemia- replacing prn Dispo: admitted for left leg cellulitis- slow progress- will need to get CT angio of vasculature of iliac (left leg) and possible cath to improve arterial flow- unable to do at [facility] due to weight limit of 400-450lbs right now will monitor progress of his left leg cellulitis. Dr. Vu consulted for wound management - silvadene topically- -will consider referral to [facility] if condition worsens. lovenox BID for dvt ppx Over last 2 days he has improved a little bit noted by less pain in his foot and leg. Problems: (1) Cellulitis Qualifiers: Qualified Codes: L03.116 - Cellulitis of left lower limb (2) PAD (peripheral artery disease) Assessment & Plan: arterial u/s- stenosis noted proximal to common femoral artery- Dr. Bauer consulted for intervention. (3) Sepsis Qualifiers: Qualified Codes: A41.9 - Sepsis, unspecified organism (4) JEFERSON on CPAP (5) Morbid obesity with BMI of 60.0-69.9, adult (6) Constipation Qualifiers: Qualified Codes: K59.01 - Slow transit constipation (7) Hypokalemia Admission Dx left leg cellulitis Clinical Quality Measures Admission Status Admission Dx left leg cellulitis DVT/VTE Risk/Contraindication: Risk Factor Score Per Nursin RFS Level Per Nursing on Admit: 4+=Very High HARDY PAL MD Feb 20, 2018 09:45
--- NOTE | 2018-02-20 11:37 | Progress Note ---
Subjective Time Seen by a Provider: 09:23 Subjective/Events-last exam Pt seen and examined, he states foot pain is better, it is easier to move and he thinks it is getting better. Review of Systems General: No Chills, No Night Sweats HEENT: No Head Aches Pulmonary: No Dyspnea, No Cough Cardiovascular: No: Chest Pain, Palpitations, Orthopnea Objective Exam Vital Signs Date Time Temp Pulse Resp B/P (MAP) Pulse Ox O2 Delivery O2 Flow Rate FiO2 02/20/18 08:00 Room Air 02/20/18 08:00 99.2 99 22 120/54 (76) 95 Room Air 02/20/18 06:53 96 Room Air 02/20/18 04:00 98.9 88 20 140/63 (88) 96 Room Air 02/20/18 00:05 99.0 104 20 133/59 (83) 96 Room Air 02/19/18 20:30 Room Air 02/19/18 18:27 100 Room Air 02/19/18 16:05 97.2 101 22 123/58 (79) 98 Room Air 02/19/18 14:44 97 Room Air I & O 02/20/18 07:00 Intake Total 1090 ml Output Total 2850 ml Balance -1760 ml Capillary Refill : Less Than 3 Seconds General Appearance: No Apparent Distress, WD/WN, Obese (morbidly) HEENT: PERRL/EOMI Neck: Non Tender, Supple Respiratory: Chest Non Tender, Lungs Clear, Normal Breath Sounds Cardiovascular: Regular Rate, Rhythm, No Murmur Gastrointestinal: normal bowel sounds, soft Extremity: Calf Tenderness (left- hot to touch- woody edema- erythema- cellulitis), Pedal Edema (pt has increased edema on left foot, with erythema and warmth; no obvious fluctuance), Other (leg appears to be healing, ?? starting to scab at upper level of cellulitis area just below knee. still looks bad at dependent area in calf) Neurologic/Psychiatric: Alert, Oriented x3 Results Lab Laboratory Tests 02/19/18 16:06: Glucometer 144H 02/19/18 20:40: Glucometer 142H 02/20/18 05:30: White Blood Count 8.4, Red Blood Count 3.13L, Hemoglobin 9.9L, Hematocrit 31L, Mean Corpuscular Volume 97, Mean Corpuscular Hemoglobin 32, Mean Corpuscular Hemoglobin Concent 33, Red Cell Distribution Width 13.7, Platelet Count 331, Mean Platelet Volume 9.4, Neutrophils (%) (Auto) 62, Lymphocytes (%) (Auto) 20, Monocytes (%) (Auto) 14H, Eosinophils (%) (Auto) 4, Basophils (%) (Auto) 0, Neutrophils # (Auto) 5.2, Lymphocytes # (Auto) 1.7, Monocytes # (Auto) 1.1H, Eosinophils # (Auto) 0.4H, Basophils # (Auto) 0.0, Sodium Level 137, Potassium Level 4.0, Chloride Level 108H, Carbon Dioxide Level 23, Anion Gap 6, Blood Urea Nitrogen 11, Creatinine 0.78, Estimat Glomerular Filtration Rate > 60, BUN/ Creatinine Ratio 14, Glucose Level 111H, Calcium Level 7.9L, Corrected Calcium 9.3, Total Bilirubin 0.6, Aspartate Amino Transf (AST/SGOT) 22, Alanine Aminotransferase (ALT/SGPT) 23, Alkaline Phosphatase 84, Total Protein 6.0L, Albumin 2.3L 02/20/18 05:47: Glucometer 122H 02/20/18 11:11: Glucometer 117H Microbiology 02/11/18 Blood Culture - Final, Complete No growth Assessment/Plan Assessment/Plan Assessment/Plan Cellulitis/Venous Stasis Finally appears to be improving, erythema and swelling on top of foot was better. Starting to get wrinkling on toes; ie receding of edema. Clinical Quality Measures DVT/VTE Risk/Contraindication: Risk Factor Score Per Nursin RFS Level Per Nursing on Admit: 4+=Very High PONCE KANG DO Feb 20, 2018 11:37
[2018-02-20] MEDS ORDERED: RT-ALBUTEROL SULF 2.5 MG/3 ML PRE-MIX VIAL INH PRN (12:30)
[2018-02-20] MEDS: fentaNYL INJECTION 100 MCG/2 ML AMP IVP PRN ×3 (14:59→23:39)
[2018-02-20 16:10] VITALS: BP 137/63
[2018-02-20] MEDS: ATORVASTATIN 80 MG (LIPITOR) TABLET PO SCH (20:08)
[2018-02-21] VITALS: BP 106/52
[2018-02-21] MEDS: PIPERACILLIN/TAZO 4.5 GM/NS 100 ML IV SCH ×6 (03:44→20:48)
[2018-02-21] MEDS: VANCOMYCIN INJECTION 1,750 MG in NS IV 500 ML 500 ML IV SCH ×3 (03:44→18:04)
[2018-02-21] MEDS: ENOXAPARIN 60 MG/0.6 ML (LOVENOX) SYR SC SCH ×2 (04:51→16:48)
[2018-02-21] MEDS: oxyCODONE/APAP 7.5-325 MG (PERCOCET 7.5) TABLET PO PRN ×3 (05:56→16:49)
[2018-02-21] MEDS: inSUlin ASPART (NovoLOG) 1 UNIT/0.01 ML (CHARGE PER UNIT) SC SCH ×4 (06:06→20:48)
[2018-02-21] MEDS: fentaNYL INJECTION 100 MCG/2 ML AMP IVP PRN ×3 (06:34→15:09)
[2018-02-21 08:00] VITALS: BP 119/58
[2018-02-21] MEDS: CLOPIDOGREL 75 MG (PLAVIX) TABLET PO SCH (08:11)
[2018-02-21] MEDS: ASPIRIN 81 MG CHEW (CHILDREN'S ASA) PO SCH (08:11)
[2018-02-21] MEDS: inSUlin DETERMIR 1 UNIT/0.01 ML (LEVEMIR) CHARGE PER UNIT SQ SCH ×2 (08:13→20:47)
[2018-02-21] MEDS: SILVER SULFADIAZINE 400 GM CREAM TOP SCH ×2 (08:17→11:39)
[2018-02-21] MEDS ORDERED: PIPERACILLIN/TAZO 4.5 GM VIAL (ZOSYN) IV ONE (11:38)
[2018-02-21] MEDS: SILVER SULFADIAZINE 50 GM CREAM TOP SCH (11:39)
--- NOTE | 2018-02-21 11:52 | Progress Note ---
Subjective Date Seen by a Provider: Feb 21, 2018 Time Seen by a Provider: 11:48 Subjective/Events-last exam Patient leg is beginning to feel better. He states that he can walk on it to go use the restroom. Patient states that before he is having a deep bone pain but now just feels more superficial pain. He still having some weeping serous-appearing fluid. He states that the redness seems to be improving as well. He denies any nausea vomiting fever sweats chills shortness of breath or chest pain. Objective Exam Vital Signs Date Time Temp Pulse Resp B/P (MAP) Pulse Ox O2 Delivery O2 Flow Rate FiO2 02/21/18 08:00 Room Air 02/21/18 08:00 98.2 97 20 119/58 (78) 95 Room Air 02/21/18 00:00 99.6 106 22 106/52 (70) 93 Room Air 02/20/18 20:38 97 Room Air 02/20/18 20:00 Room Air 02/20/18 16:10 98.5 90 20 137/63 (87) 98 Room Air I & O 02/21/18 07:00 Intake Total 1857.5 ml Output Total 700 ml Balance 1157.5 ml Capillary Refill : Less Than 3 Seconds General Appearance: No Apparent Distress, WD/WN, Obese (morbidly) HEENT: PERRL/EOMI Neck: Non Tender, Supple Respiratory: Chest Non Tender, Lungs Clear, Normal Breath Sounds Cardiovascular: Regular Rate, Rhythm, No Murmur Gastrointestinal: normal bowel sounds, soft Extremity: Calf Tenderness (left- warm to touch- woody edema- erythema- cellulitis overall improving), Pedal Edema (pt has increased edema on left foot , with erythema and warmth; no obvious fluctuance), Other (leg appears to be healing, ??starting to scab at upper level of cellulitis area just below knee. ) Neurologic/Psychiatric: Alert, Oriented x3 Skin: Other (As noted above on left lower extremity) Results Lab Laboratory Tests 02/20/18 16:14: Glucometer 112H 02/20/18 20:31: Glucometer 130H 02/21/18 06:00: Glucometer 119H 02/21/18 11:18: Glucometer 91 Microbiology 02/11/18 Blood Culture - Final, Complete No growth Assessment/Plan Assessment/Plan Assessment/Plan Cellulitis/Venous Stasis Continues to improve. His white blood cell count was down yesterday. Overall pain seems to be improving as well. Continue current medical management. No surgical intervention needed at this time. We will continue to follow Clinical Quality Measures DVT/VTE Risk/Contraindication: Risk Factor Score Per Nursin RFS Level Per Nursing on Admit: 4+=Very High NELI FAN DO Feb 21, 2018 11:52
--- NOTE | 2018-02-21 12:27 | Progress Note-Hospitalist ---
Subjective HPI/CC On Admission Date Seen by Provider: Feb 21, 2018 Time Seen by Provider: 11:30 Subjective/Events-last exam Patient improved overall Cathflo initiated due to midline dysfunction Left leg no longer hurts + BM Overall doing well Review of Systems General: Fatigue Musculoskeletal: leg pain Objective Exam Vital Signs Vital Signs Date Time Temp Pulse Resp B/P (MAP) Pulse Ox O2 Delivery O2 Flow Rate FiO2 02/21/18 08:00 Room Air 02/21/18 08:00 98.2 97 20 119/58 (78) 95 Capillary Refill : Less Than 3 Seconds General Appearance: No Apparent Distress, WD/WN, Chronically ill, Obese Respiratory: Chest Non Tender, Lungs Clear, Normal Breath Sounds, No Accessory Muscle Use, No Respiratory Distress Cardiovascular: Regular Rate, Rhythm, No Edema, No Gallop, No JVD, No Murmur, Normal Peripheral Pulses Extremity: Other (edema and redness imrpoved, dressings intact) Neurologic/Psychiatric: Alert, Oriented x3, No Motor/Sensory Deficits, Normal Mood/Affect Results/Procedures Lab Patient resulted labs reviewed. Assessment/Plan Assessment and Plan Assess & Plan/Chief Complaint Left leg cellulitis improved JEFERSON DM Plan: Maintain abx Pain control Diagnosis/Problems Diagnosis/Problems (1) Cellulitis Status: Acute Qualifiers: Site of cellulitis: extremity Site of cellulitis of extremity: lower extremity Laterality: left Qualified Codes: L03.116 - Cellulitis of left lower limb (2) Sepsis Status: Resolved Qualifiers: Sepsis type: sepsis due to unspecified organism Qualified Codes: A41.9 - Sepsis, unspecified organism (3) JEFERSON on CPAP Status: Chronic (4) Morbid obesity with BMI of 60.0-69.9, adult Status: Chronic (5) Constipation Status: Resolved Qualifiers: Constipation type: slow transit constipation Qualified Codes: K59.01 - Slow transit constipation (6) Hypokalemia Status: Resolved (7) Scrotal edema Status: Resolved (8) Diabetes type 2, uncontrolled Status: Chronic Qualifiers: Glycemic state: with hyperglycemia Qualified Codes: E11.65 - Type 2 diabetes mellitus with hyperglycemia Clinical Quality Measures DVT/VTE Risk/Contraindication: Risk Factor Score Per Nursin RFS Level Per Nursing on Admit: 4+=Very High ISABELLA OLIVER DO Feb 21, 2018 12:27
[2018-02-21] MEDS ORDERED: ALTEPLASE 2 MG (CATHFLO) IV ONE (12:30)
[2018-02-21] MEDS ORDERED: WATER (STERILE) FOR INJECTION 20 ML ONE (12:51)
[2018-02-21] MEDS: DOCUSATE SODIUM 100 MG (COLACE) CAP PO SCH ×2 (13:00→20:51)
[2018-02-21] MEDS: POLYETHYLENE GLYCOL 17 GM (MIRALAX) PACK PO SCH ×2 (13:00→20:51)
[2018-02-21] MEDS: SENNA W/DOCUSATE (SENOKOT S) TABLET PO SCH ×2 (13:00→20:51)
--- NOTE | 2018-02-21 13:50 | Cardiology Progress Note ---
Cardiology SOAP Progress Note Subjective: No chest pain or shortness of breath. Objective: I&O/Vital Signs 02/21/18 02/21/18 08:00 08:00 Temp 98.2 Pulse 97 Resp 20 B/P (MAP) 119/58 (78) Pulse Ox 95 O2 Delivery Room Air Room Air 02/21/18 00:00 Intake Total 1657.5 ml Output Total 700 ml Balance 957.5 ml Weight (Pounds): 485 Weight (Ounces): 9.0 Weight (Calculated Kilograms): 220.663310 Constitutional: appears stated age, AAO x 3; No apparent distress; well- developed, well-nourished, other (morbid obesity) Respiratory: No accessory muscle use, No respiratory distress, No chest tender , No chest expansion is symmetric; chest is bilaterally symmetric; No lungs clear to percussion; lungs clear to auscultation; No crackles, No rhonchi, No rales, No stridor, No wheezing, No pleural rub, No other Cardiovascular: regular rate-rhythm, edema, S1 and S2 Gastrointestional: No tender, No soft, No round, No distended, No pulsatile mass, No organomegaly, No guarding, No rebound, No tenderness, No hernia, No mass, No audible bowel sounds, No abnormal bowel sounds, No abdominal bruits, No spleenomegaly, No other Extremities: No clubbing, No cyanosis; significant edema, wound (left lower extremity.) Neurologic/Psychiatric: no motor/sensory deficits, alert, normal mood/affect, oriented x 3, power is 5/5 both on sides Skin: No normal color, No warm/dry, No cyanosis, No cool, No diaphoresis, No damp, No ecchymosis, No jaundice, No mottled, No pallor, No rash, No tattoos/ piercings, No ulcerations, No rash on exposed areas, No ulcerations on exposed areas, No other Results/Procedures: Labs Laboratory Tests 02/20/18 16:14: Glucometer 112H 02/20/18 20:31: Glucometer 130H 02/21/18 06:00: Glucometer 119H 02/21/18 11:18: Glucometer 91 Microbiology 02/11/18 Blood Culture - Final, Complete No growth A/P: Assessment/Dx: Cellulitis, Nonhealing ulcers, Diabetes, Critical limb ischemia, Morbid obesity Plan: This is a 47-year-old patient with morbid obesity and diabetes with severe cellulitis and left lower extremity ulcers. Aggressive wound care management by Dr. Vu and on IV antibiotics including vancomycin and Zosyn by Dr. Ly. Slow/no improvement in lower extremity ulcers was noted. Arterial ultrasound shows possibility of high-grade PAD in the left lower extremity. However due to significant obesity pressures and segmental wave forms could not be noted. I've discussed at length with the patient, nursing staff, Dr. Ly and Dr. Vu. Unfortunately our metallurgical lab technician table, upper limit for weight is 112129 pounds. The patient weighs over 475 pounds, therefore patient safety can be compromised if we attempt peripheral angiography in our cardiac catheterization lab. CT angiography could not be done due to morbid obesity. Patient is on aspirin, Plavix and high-dose statin. Aggressive wound care management by Dr. Kiran and his team. Thank you for your consultation. Please call me if you have any questions. German Bauer MD, FACP, FACC, FSCAI, FHRS, CCDS Interventional Cardiology Cardiac Electrophysiology Vascular Medicine and Endovascular Interventions Panfilo BAUER MD Feb 21, 2018 13:50
[2018-02-21 16:40] VITALS: BP 126/64
[2018-02-21] MEDS: ATORVASTATIN 80 MG (LIPITOR) TABLET PO SCH (20:47)
[2018-02-22] VITALS: BP 110/55
[2018-02-22] MEDS: fentaNYL INJECTION 100 MCG/2 ML AMP IVP PRN ×2 (00:53→20:36)
[2018-02-22] MEDS: VANCOMYCIN INJECTION 1,750 MG in NS IV 500 ML 500 ML IV SCH ×3 (01:49→17:34)
[2018-02-22] MEDS: ENOXAPARIN 60 MG/0.6 ML (LOVENOX) SYR SC SCH ×2 (05:21→16:50)
[2018-02-22] MEDS: PIPERACILLIN/TAZO 4.5 GM/NS 100 ML IV SCH ×6 (05:21→20:34)
[2018-02-22] MEDS: KCL 10 MEQ TAB (MICRO K) PO SCH (05:26)
[2018-02-22] MEDS: inSUlin ASPART (NovoLOG) 1 UNIT/0.01 ML (CHARGE PER UNIT) SC SCH ×4 (05:28→20:55)
[2018-02-22 08:00] VITALS: BP 132/58
[2018-02-22] MEDS: ASPIRIN 81 MG CHEW (CHILDREN'S ASA) PO SCH (08:09)
[2018-02-22] MEDS: CLOPIDOGREL 75 MG (PLAVIX) TABLET PO SCH (08:09)
[2018-02-22] MEDS: inSUlin DETERMIR 1 UNIT/0.01 ML (LEVEMIR) CHARGE PER UNIT SQ SCH ×2 (08:10→21:00)
[2018-02-22] MEDS: POLYETHYLENE GLYCOL 17 GM (MIRALAX) PACK PO SCH ×2 (08:49→20:20)
[2018-02-22] MEDS: DOCUSATE SODIUM 100 MG (COLACE) CAP PO SCH ×2 (08:50→20:20)
[2018-02-22] MEDS: SENNA W/DOCUSATE (SENOKOT S) TABLET PO SCH ×2 (08:50→20:20)
[2018-02-22] MEDS: CATHETER FLUSH 10 ML SYR IV PRN ×4 (10:21→17:34)
[2018-02-22] MEDS: SILVER SULFADIAZINE 50 GM CREAM TOP SCH (11:08)
[2018-02-22] MEDS: SILVER SULFADIAZINE 400 GM CREAM TOP SCH (12:06)
--- NOTE | 2018-02-22 12:11 | Progress Note-Hospitalist ---
Subjective HPI/CC On Admission Date Seen by Provider: Feb 22, 2018 Time Seen by Provider: 11:15 Subjective/Events-last exam Patient doing well Denies any pain in the left leg now Breathing well Bowels are moving Urinating well Review of Systems Musculoskeletal: leg pain Objective Exam Vital Signs Vital Signs Date Time Temp Pulse Resp B/P (MAP) Pulse Ox O2 Delivery O2 Flow Rate FiO2 02/22/18 08:40 99.3 02/22/18 08:00 Room Air 02/22/18 08:00 90 20 132/58 (82) 98 Capillary Refill : Less Than 3 Seconds General Appearance: No Apparent Distress, WD/WN, Chronically ill, Obese Respiratory: Chest Non Tender, Lungs Clear, Normal Breath Sounds, No Accessory Muscle Use, No Respiratory Distress Cardiovascular: Regular Rate, Rhythm, No Edema, No Gallop, No JVD, No Murmur, Normal Peripheral Pulses Extremity: Other (Left leg with dressing intact, intact sensation toes) Neurologic/Psychiatric: Alert, Oriented x3, No Motor/Sensory Deficits, Normal Mood/Affect Results/Procedures Lab Patient resulted labs reviewed. Assessment/Plan Assessment and Plan Assess & Plan/Chief Complaint Left leg cellulitis improved JEFERSON DM Plan: Maintain abx of vancomycin and Zosyn Pain control Diagnosis/Problems Diagnosis/Problems (1) Cellulitis Status: Acute Qualifiers: Site of cellulitis: extremity Site of cellulitis of extremity: lower extremity Laterality: left Qualified Codes: L03.116 - Cellulitis of left lower limb (2) Sepsis Status: Resolved Qualifiers: Sepsis type: sepsis due to unspecified organism Qualified Codes: A41.9 - Sepsis, unspecified organism (3) JEFERSON on CPAP Status: Chronic (4) Morbid obesity with BMI of 60.0-69.9, adult Status: Chronic (5) Constipation Status: Resolved Qualifiers: Constipation type: slow transit constipation Qualified Codes: K59.01 - Slow transit constipation (6) Hypokalemia Status: Resolved (7) Scrotal edema Status: Resolved (8) Diabetes type 2, uncontrolled Status: Chronic Qualifiers: Glycemic state: with hyperglycemia Qualified Codes: E11.65 - Type 2 diabetes mellitus with hyperglycemia Clinical Quality Measures DVT/VTE Risk/Contraindication: Risk Factor Score Per Nursin RFS Level Per Nursing on Admit: 4+=Very High ISABELLA OLIVER DO Feb 22, 2018 12:10
[2018-02-22] MEDS: oxyCODONE/APAP 7.5-325 MG (PERCOCET 7.5) TABLET PO PRN ×2 (12:14→18:54)
--- NOTE | 2018-02-22 12:56 | Progress Note ---
Subjective Date Seen by a Provider: Feb 22, 2018 Time Seen by a Provider: 12:53 Subjective/Events-last exam Patient states leg is feeling better each day. He states that the major portion of this aren't scab over more and he is able to walk on it better overall. Patient with no new complaints. Denies any nausea vomiting fever sweats chills shortness of breath or chest pain. Objective Exam Vital Signs Date Time Temp Pulse Resp B/P (MAP) Pulse Ox O2 Delivery O2 Flow Rate FiO2 02/22/18 08:40 99.3 02/22/18 08:00 Room Air 02/22/18 08:00 97.4 90 20 132/58 (82) 98 Room Air 02/22/18 00:00 99.3 104 20 110/55 (73) 95 Room Air 02/21/18 20:24 Room Air 02/21/18 20:04 Room Air 02/21/18 16:40 98.4 98 20 126/64 (84) 95 Room Air I & O 02/22/18 07:00 Intake Total 3165.0 ml Balance 3165.0 ml Capillary Refill : Less Than 3 Seconds General Appearance: No Apparent Distress, WD/WN, Obese HEENT: PERRL/EOMI Neck: Non Tender, Supple Respiratory: Chest Non Tender, Lungs Clear, Normal Breath Sounds, No Accessory Muscle Use, No Respiratory Distress Cardiovascular: Regular Rate, Rhythm Gastrointestinal: normal bowel sounds, soft Extremity: Other (Left leg with dressing intact, intact sensation toes, less swelling ) Neurologic/Psychiatric: Alert, Oriented x3, No Motor/Sensory Deficits, Normal Mood/Affect Skin: Normal Color, Warm/Dry, Other (As noted above on left lower extremity) Lymphatic: No Adenopathy Results Lab Laboratory Tests 02/21/18 16:40: Glucometer 105 02/21/18 20:14: Glucometer 128H 02/22/18 05:21: Glucometer 106 02/22/18 10:59: Glucometer 135H Microbiology 02/11/18 Blood Culture - Final, Complete No growth Assessment/Plan Assessment/Plan Assessment/Plan Cellulitis/Venous Stasis Continues to improve. Overall pain seems to be improving and leg improving as well. Continue current medical management. No surgical intervention needed at this time. We will continue to follow Clinical Quality Measures DVT/VTE Risk/Contraindication: Risk Factor Score Per Nursin RFS Level Per Nursing on Admit: 4+=Very High NELI FAN DO Feb 22, 2018 12:56
--- NOTE | 2018-02-22 14:43 | Cardiology Progress Note ---
Cardiology SOAP Progress Note Subjective: Slow improvement of cellulitis. Objective: I&O/Vital Signs 02/22/18 02/22/18 02/22/18 02/22/18 08:00 08:00 08:40 12:45 Temp 97.4 99.3 99.3 Pulse 90 Resp 20 B/P (MAP) 132/58 (82) Pulse Ox 98 O2 Delivery Room Air Room Air 02/22/18 00:00 Intake Total 2297.5 ml Balance 2297.5 ml Weight (Pounds): 485 Weight (Ounces): 9.0 Weight (Calculated Kilograms): 220.262079 Constitutional: appears stated age, AAO x 3; No apparent distress; well- developed, well-nourished, other (morbid obesity) Respiratory: No accessory muscle use, No respiratory distress, No chest tender , No chest expansion is symmetric; chest is bilaterally symmetric; No lungs clear to percussion; lungs clear to auscultation; No crackles, No rhonchi, No rales, No stridor, No wheezing, No pleural rub, No other Cardiovascular: regular rate-rhythm, edema, S1 and S2 Gastrointestional: No tender, No soft, No round, No distended, No pulsatile mass, No organomegaly, No guarding, No rebound, No tenderness, No hernia, No mass, No audible bowel sounds, No abnormal bowel sounds, No abdominal bruits, No spleenomegaly, No other Extremities: No clubbing, No cyanosis; significant edema, wound (left lower extremity.) Neurologic/Psychiatric: no motor/sensory deficits, alert, normal mood/affect, oriented x 3, power is 5/5 both on sides Skin: No normal color, No warm/dry, No cyanosis, No cool, No diaphoresis, No damp, No ecchymosis, No jaundice, No mottled, No pallor, No rash, No tattoos/ piercings, No ulcerations, No rash on exposed areas, No ulcerations on exposed areas, No other Results/Procedures: Labs Laboratory Tests 02/21/18 16:40: Glucometer 105 02/21/18 20:14: Glucometer 128H 02/22/18 05:21: Glucometer 106 02/22/18 10:59: Glucometer 135H Microbiology 02/11/18 Blood Culture - Final, Complete No growth A/P: Assessment/Dx: Cellulitis, Nonhealing ulcers, Diabetes, Critical limb ischemia, Morbid obesity Plan: This is a 47-year-old patient with morbid obesity and diabetes with severe cellulitis and left lower extremity ulcers. Aggressive wound care management by Dr. Vu and on IV antibiotics including vancomycin and Zosyn by Dr. Ly. Slow/no improvement in lower extremity ulcers was noted. Arterial ultrasound shows possibility of high-grade PAD in the left lower extremity. However due to significant obesity pressures and segmental wave forms could not be noted. I've discussed at length with the patient, nursing staff, Dr. Ly and Dr. Vu. Unfortunately our medical laboratory technician table, upper limit for weight is [id number] pounds. The patient weighs over 475 pounds, therefore patient safety can be compromised if we attempt peripheral angiography in our cardiac catheterization lab. CT angiography could not be done due to morbid obesity. Patient is on aspirin, Plavix and high-dose statin. Start IV Lasix, strict input and output. 2 g sodium diet. Daily weight. There may be some improvement in the lymphedema with Lasix. Aggressive wound care management by Dr. Kiran and his team. Thank you for your consultation. Please call me if you have any questions. German Bauer MD, FACP, FACC, FSCAI, FHRS, CCDS Interventional Cardiology Cardiac Electrophysiology Vascular Medicine and Endovascular Interventions Panfilo BAUER MD Feb 22, 2018 2:43 pm
[2018-02-22] MEDS: FUROSEMIDE 40 MG/4 ML INJ (LASIX) IVP SCH (14:51)
[2018-02-22 15:50] VITALS: BP 143/63
[2018-02-22] MEDS: Dulaglutide (Trulicity) 0.75 MG SC SCH (16:45)
[2018-02-22] MEDS: ATORVASTATIN 80 MG (LIPITOR) TABLET PO SCH (20:34)
[2018-02-23 00:50] VITALS: BP 134/55
[2018-02-23] MEDS: VANCOMYCIN INJECTION 1,750 MG in NS IV 500 ML 500 ML IV SCH ×2 (02:26→13:33)
[2018-02-23] MEDS: PIPERACILLIN/TAZO 4.5 GM/NS 100 ML IV SCH ×6 (04:36→20:53)
[2018-02-23] MEDS: ENOXAPARIN 60 MG/0.6 ML (LOVENOX) SYR SC SCH ×2 (04:36→17:23)
[2018-02-23] MEDS: oxyCODONE/APAP 7.5-325 MG (PERCOCET 7.5) TABLET PO PRN ×3 (04:36→18:45)
[2018-02-23] MEDS: inSUlin ASPART (NovoLOG) 1 UNIT/0.01 ML (CHARGE PER UNIT) SC SCH ×4 (05:27→20:52)
[2018-02-23] MEDS: KCL 10 MEQ TAB (MICRO K) PO SCH (06:11)
[2018-02-23 07:17] LABS: BASOPHILS # (AUTO) 0.1 10^3/uL (0.0-0.1); BASOPHILS % (AUTO) 1 % (0-10); EOSINOPHILS # (AUTO) 0.4 10^3/uL (0.0-0.3); EOSINOPHILS % (AUTO) 5 % (0-10); HEMATOCRIT 29 % (40-54); HEMOGLOBIN 9.6 G/DL (13.3-17.7); LYMPHOCYTES # (AUTO) 1.5 X 10^3 (1.0-4.0); LYMPHOCYTES % (AUTO) 20 % (12-44); MEAN CORPUSCULAR HEMOGLOBIN 32 PG (25-34); MEAN CORPUSCULAR HGB CONC 33 G/DL (32-36); MEAN CORPUSCULAR VOLUME 97 FL (80-99); MONOCYTES # (AUTO) 1.1 X 10^3 (0.0-1.0); MONOCYTES % (AUTO) 16 % (0-12); NEUTROPHILS # (AUTO) 4.2 X 10^3 (1.8-7.8); NEUTROPHILS % (AUTO) 58 % (42-75); PLATELET COUNT 453 10^3/uL (130-400); RED BLOOD COUNT 3.04 10^6/uL (4.35-5.85); RED CELL DISTRIBUTION WIDTH 13.2 % (10.0-14.5); WHITE BLOOD COUNT 7.2 10^3/uL (4.3-11.0)
[2018-02-23 07:29] LABS: BUN/CREATININE RATIO 11; CALCIUM 8.1 MG/DL (8.5-10.1); CARBON DIOXIDE 23 MMOL/L (21-32); CHLORIDE 107 MMOL/L (98-107); CREATININE SERUM 0.79 MG/DL (0.60-1.30); GFR ESTIMATED > 60; GLUCOSE 104 MG/DL (70-105); MAGNESIUM 1.5 MG/DL (1.8-2.4); POTASSIUM 3.8 MMOL/L (3.6-5.0); SODIUM 138 MMOL/L (135-145)
[2018-02-23 08:00] VITALS: BP 136/84
--- NOTE | 2018-02-23 08:31 | Progress Note (SOAP) ---
Subjective Subjective Date Seen by Provider: Feb 23, 2018 Time Seen by Provider: 07:50 47 yo M admitted for sepsis due to cellulitis- -pain is better -He is getting up to the bathroom easier- Notes increased urination from the lasix. -hoping to go home in the next couple days. He needs me to fill out his paperwork for short term disability. Review of Systems General: Fatigue HEENT: No Head Aches Pulmonary: No Dyspnea, No Cough Cardiovascular: No: Chest Pain, Palpitations, Orthopnea Gastrointestinal: No: Nausea, Vomiting, Abdominal Pain Genitourinary: No Dysuria, No Frequency Musculoskeletal: leg pain Neurological: No: Weakness, Numbness, Confusion Objective Exam Vital Signs Vital Signs Date Time Temp Pulse Resp B/P (MAP) Pulse Ox O2 Delivery O2 Flow Rate FiO2 02/23/18 07:46 Room Air 02/23/18 00:50 97.9 94 18 134/55 (81) 96 Room Air 02/22/18 19:55 Room Air 02/22/18 15:50 97.6 95 16 143/63 (89) 96 Room Air 02/22/18 12:45 99.3 02/22/18 08:40 99.3 I & O 02/23/18 07:00 Intak General Appearance: No Apparent Distress, WD/WN, Obese Eyes: Bilateral Eye PERRL, Bilateral Eye EOMI HEENT: PERRL/EOMI Neck: Non Tender, Supple Respiratory: Chest Non Tender, Lungs Clear, Normal Breath Sounds, No Accessory Muscle Use, No Respiratory Distress Cardiovascular: Regular Rate, Rhythm Gastrointestinal: Non Tender Rectal: Deferred Back: Normal Inspection Extremity: Other (Left leg with dressing intact, intact sensation toes, less swelling ) Neurologic/Psychiatric: Alert, Oriented x3, No Motor/Sensory Deficits, Normal Mood/Affect Skin: Normal Color, Warm/Dry, Other (As noted above on left lower extremity) Lymphatic: No Adenopathy Results Lab Laboratory Tests 02/22/18 10:59: Glucometer 135H 02/22/18 15:53: Glucometer 110 02/22/18 20:54: Glucometer 182H 02/23/18 05:18: Glucometer 101 02/23/18 07:00: White Blood Count 7.2, Red Blood Count 3.04L, Hemoglobin 9.6L, Hematocrit 29L, Mean Corpuscular Volume 97, Mean Corpuscular Hemoglobin 32, Mean Corpuscular Hemoglobin Concent 33, Red Cell Distribution Width 13.2, Platelet Count 453H, Mean Platelet Volume 9.0, Neutrophils (%) (Auto) 58, Lymphocytes (%) (Auto) 20, Monocytes (%) (Auto) 16H, Eosinophils (%) (Auto) 5, Basophils (%) (Auto) 1, Neutrophils # (Auto) 4.2, Lymphocytes # (Auto) 1.5, Monocytes # (Auto) 1.1H, Eosinophils # (Auto) 0.4H, Basophils # (Auto) 0.1, Sodium Level 138, Potassium Level 3.8, Chloride Level 107, Carbon Dioxide Level 23, Anion Gap 8, Blood Urea Nitrogen 9, Creatinine 0.79, Estimat Glomerular Filtration Rate > 60, BUN/ Creatinine Ratio 11, Glucose Level 104, Calcium Level 8.1L, Magnesium Level 1.5L Microbiology 02/11/18 Blood Culture - Final, Complete No growth Assessment/Plan Assessment/Plan Admission Dx left leg cellulitis Assessment and Plan 47 yo M left leg cellulitis/erysipelas- zosyn 02/13/18-->. Vancomycin started ---> wound care (I87.2) Venous insufficiency (chronic) (peripheral)- elevate legs, weight loss recommended- making cellulitis slow to heal. lasix added to help with edema I73.9- PAD- Dr. Bauer consulted for intervention- appears to be stenosis in iliac artery region- likely contributing to slow improvement of cellulitis. continue ASA, plavix, statin (E66.01) Morbid (severe) obesity due to excess calories- weight loss recommended- consider bariatric surgery (I10) Essential (primary) hypertension- resume BP medications (E11.9) Type 2 diabetes mellitus- good control, continue regimen (K21.9) Gastro-esophageal reflux disease without esophagitis - monitor symptoms. -hypokalemia- replacing prn -hypomagnesemia- replacing Dispo: admitted for left leg cellulitis- slow progress- will need to get CT angio of vasculature of iliac (left leg) and possible cath to improve arterial flow- unable to do at [facility] due to weight limit of the table right now will monitor progress of his left leg cellulitis. Dr. Vu consulted for wound management - silvadene topically- -will consider referral to [facility] if condition worsens. lovenox BID for dvt ppx -Pt continues to improve- possibly discharge to home this week. Problems: (1) PAD (peripheral artery disease) Assessment & Plan: arterial u/s- stenosis noted proximal to common femoral artery- Dr. Bauer consulted --will plan for follow up evaluation after cellulitis resolved. (2) JEFERSON on CPAP (3) Morbid obesity with BMI of 60.0-69.9, adult (4) Hypokalemia Admission Dx left leg cellulitis Clinical Quality Measures Admission Status Admission Dx left leg cellulitis DVT/VTE Risk/Contraindication: Risk Factor Score Per Nursin RFS Level Per Nursing on Admit: 4+=Very High HARDY PAL MD Feb 23, 2018 08:31
[2018-02-23] MEDS: ASPIRIN 81 MG CHEW (CHILDREN'S ASA) PO SCH (09:27)
[2018-02-23] MEDS: MAGNESIUM OXIDE (MAG-OX)400 MG TAB PO SCH ×2 (09:28→18:45)
[2018-02-23] MEDS: inSUlin DETERMIR 1 UNIT/0.01 ML (LEVEMIR) CHARGE PER UNIT SQ SCH ×2 (09:28→20:53)
[2018-02-23] MEDS: FUROSEMIDE 40 MG/4 ML INJ (LASIX) IVP SCH (09:28)
[2018-02-23] MEDS: CLOPIDOGREL 75 MG (PLAVIX) TABLET PO SCH (09:28)
[2018-02-23] MEDS: SILVER SULFADIAZINE 400 GM CREAM TOP SCH (09:29)
[2018-02-23] MEDS: SILVER SULFADIAZINE 50 GM CREAM TOP SCH (09:29)
[2018-02-23] MEDS ORDERED: TROUGH ORDER-PHARMACY XX NR (09:30)
[2018-02-23] MEDS: DOCUSATE SODIUM 100 MG (COLACE) CAP PO SCH ×2 (09:34→20:51)
[2018-02-23] MEDS: POLYETHYLENE GLYCOL 17 GM (MIRALAX) PACK PO SCH ×2 (09:34→20:51)
[2018-02-23] MEDS: SENNA W/DOCUSATE (SENOKOT S) TABLET PO SCH ×2 (09:35→20:51)
[2018-02-23] MEDS: fentaNYL INJECTION 100 MCG/2 ML AMP IVP PRN ×2 (13:27→20:57)
[2018-02-23] MEDS: CATHETER FLUSH 10 ML SYR IV PRN (13:27)
--- NOTE | 2018-02-23 15:03 | Cardiology Progress Note ---
Cardiology SOAP Progress Note Subjective: Improved wound care. Objective: I&O/Vital Signs 02/23/18 02/23/18 02/23/18 07:46 08:00 08:00 Temp 97.7 Pulse 90 Resp 22 B/P (MAP) 136/84 (101) Pulse Ox 96 O2 Delivery Room Air Room Air Room Air 02/23/18 00:00 Intake Total 18046 ml Balance 80619 ml Weight (Pounds): 486 Weight (Ounces): 0.0 Weight (Calculated Kilograms): 220.396450 Constitutional: appears stated age, AAO x 3; No apparent distress; well- developed, well-nourished, other (morbid obesity) Respiratory: No accessory muscle use, No respiratory distress, No chest tender , No chest expansion is symmetric; chest is bilaterally symmetric; No lungs clear to percussion; lungs clear to auscultation; No crackles, No rhonchi, No rales, No stridor, No wheezing, No pleural rub, No other Cardiovascular: regular rate-rhythm, edema, S1 and S2 Gastrointestional: No tender, No soft, No round, No distended, No pulsatile mass, No organomegaly, No guarding, No rebound, No tenderness, No hernia, No mass, No audible bowel sounds, No abnormal bowel sounds, No abdominal bruits, No spleenomegaly, No other Extremities: No clubbing, No cyanosis; significant edema, wound (left lower extremity.) Neurologic/Psychiatric: no motor/sensory deficits, alert, normal mood/affect, oriented x 3, power is 5/5 both on sides Skin: No normal color, No warm/dry, No cyanosis, No cool, No diaphoresis, No damp, No ecchymosis, No jaundice, No mottled, No pallor, No rash, No tattoos/ piercings, No ulcerations, No rash on exposed areas, No ulcerations on exposed areas, No other Results/Procedures: Labs Laboratory Tests 02/22/18 15:53: Glucometer 110 02/22/18 20:54: Glucometer 182H 02/23/18 05:18: Glucometer 101 02/23/18 07:00: White Blood Count 7.2, Red Blood Count 3.04L, Hemoglobin 9.6L, Hematocrit 29L, Mean Corpuscular Volume 97, Mean Corpuscular Hemoglobin 32, Mean Corpuscular Hemoglobin Concent 33, Red Cell Distribution Width 13.2, Platelet Count 453H, Mean Platelet Volume 9.0, Neutrophils (%) (Auto) 58, Lymphocytes (%) (Auto) 20, Monocytes (%) (Auto) 16H, Eosinophils (%) (Auto) 5, Basophils (%) (Auto) 1, Neutrophils # (Auto) 4.2, Lymphocytes # (Auto) 1.5, Monocytes # (Auto) 1.1H, Eosinophils # (Auto) 0.4H, Basophils # (Auto) 0.1, Sodium Level 138, Potassium Level 3.8, Chloride Level 107, Carbon Dioxide Level 23, Anion Gap 8, Blood Urea Nitrogen 9, Creatinine 0.79, Estimat Glomerular Filtration Rate > 60, BUN/ Creatinine Ratio 11, Glucose Level 104, Calcium Level 8.1L, Magnesium Level 1.5L 02/23/18 10:10: Vancomycin Level Trough 23.5H 02/23/18 10:45: Glucometer 134H Microbiology 02/11/18 Blood Culture - Final, Complete No growth A/P: Assessment/Dx: Cellulitis, Nonhealing ulcers, Diabetes, Critical limb ischemia, Morbid obesity Plan: This is a 47-year-old patient with morbid obesity and diabetes with severe cellulitis and left lower extremity ulcers. Aggressive wound care management by Dr. Vu and on IV antibiotics including vancomycin and Zosyn by Dr. Ly. Slow/no improvement in lower extremity ulcers was noted. Arterial ultrasound shows possibility of high-grade PAD in the left lower extremity. However due to significant obesity pressures and segmental wave forms could not be noted. I've discussed at length with the patient, nursing staff, Dr. Ly and Dr. Vu. Unfortunately our slab inspector table, upper limit for weight is [id number] pounds. The patient weighs over 475 pounds, therefore patient safety can be compromised if we attempt peripheral angiography in our cardiac catheterization lab. CT angiography could not be done due to morbid obesity. Patient is on aspirin, Plavix and high-dose statin. Start IV Lasix, strict input and output. 2 g sodium diet. Daily weight. There may be some improvement in the lymphedema with Lasix. Aggressive wound care management by Dr. Kiran and his team. Thank you for your consultation. Please call me if you have any questions. German Bauer MD, FACP, FACC, FSCAI, FHRS, CCDS Interventional Cardiology Cardiac Electrophysiology Vascular Medicine and Endovascular Interventions Panfilo BAUER MD Feb 23, 2018 3:02 pm
[2018-02-23 16:50] VITALS: BP 117/58
--- NOTE | 2018-02-23 20:21 | Progress Note ---
Subjective Time Seen by a Provider: 12:01 Subjective/Events-last exam Pt seen and examined, states he feels good. Minimal pain in leg and he thinks it is getting better. Review of Systems General: No Chills, No Night Sweats Pulmonary: No Dyspnea, No Cough Cardiovascular: No: Chest Pain, Palpitations Gastrointestinal: No: Nausea Objective Exam Vital Signs Date Time Temp Pulse Resp B/P (MAP) Pulse Ox O2 Delivery O2 Flow Rate FiO2 02/23/18 16:50 97.5 101 22 117/58 (77) 96 Room Air 02/23/18 08:00 97.7 90 22 136/84 (101) 96 Room Air 02/23/18 08:00 Room Air 02/23/18 07:46 Room Air 02/23/18 00:50 97.9 94 18 134/55 (81) 96 Room Air I & O 02/23/18 07:00 Intake Total 03987.5 ml Balance 48296.5 ml Capillary Refill : Less Than 3 Seconds General Appearance: No Apparent Distress, WD/WN, Obese (super morbidly) HEENT: PERRL/EOMI, Moist Mucous Membranes Respiratory: Chest Non Tender, Lungs Clear, Normal Breath Sounds, No Accessory Muscle Use, No Respiratory Distress Cardiovascular: Regular Rate, Rhythm, No Murmur Gastrointestinal: normal bowel sounds, soft Extremity: Other (erythema is decreased, now has large scab going diagonal direction, up and lateral. Measures appx 5-6cm wide and 40cm long. Top of left foot appears swollen again, not as bad as it was at its worst.) Neurologic/Psychiatric: Alert, Oriented x3, No Motor/Sensory Deficits, Normal Mood/Affect Skin: Normal Color, Warm/Dry, Other (As noted above on left lower extremity) Lymphatic: No Adenopathy Results Lab Laboratory Tests 02/22/18 20:54: Glucometer 182H 02/23/18 05:18: Glucometer 101 02/23/18 07:00: White Blood Count 7.2, Red Blood Count 3.04L, Hemoglobin 9.6L, Hematocrit 29L, Mean Corpuscular Volume 97, Mean Corpuscular Hemoglobin 32, Mean Corpuscular Hemoglobin Concent 33, Red Cell Distribution Width 13.2, Platelet Count 453H, Mean Platelet Volume 9.0, Neutrophils (%) (Auto) 58, Lymphocytes (%) (Auto) 20, Monocytes (%) (Auto) 16H, Eosinophils (%) (Auto) 5, Basophils (%) (Auto) 1, Neutrophils # (Auto) 4.2, Lymphocytes # (Auto) 1.5, Monocytes # (Auto) 1.1H, Eosinophils # (Auto) 0.4H, Basophils # (Auto) 0.1, Sodium Level 138, Potassium Level 3.8, Chloride Level 107, Carbon Dioxide Level 23, Anion Gap 8, Blood Urea Nitrogen 9, Creatinine 0.79, Estimat Glomerular Filtration Rate > 60, BUN/ Creatinine Ratio 11, Glucose Level 104, Calcium Level 8.1L, Magnesium Level 1.5L 02/23/18 10:10: Vancomycin Level Trough 23.5H 02/23/18 10:45: Glucometer 134H 02/23/18 16:54: Glucometer 131H Microbiology 02/11/18 Blood Culture - Final, Complete No growth Assessment/Plan Assessment/Plan Assessment/Plan Left Leg Cellulitis and Venous Insufficiency DM MO Hypomagnesemia Continue local wound care and elevation of leg; finally seems to be doing better. Should be able to go home this week; either with Home health or to come back to wound care. Clinical Quality Measures DVT/VTE Risk/Contraindication: Risk Factor Score Per Nursin RFS Level Per Nursing on Admit: 4+=Very High PONCE KANG DO Feb 23, 2018 20:21
[2018-02-23] MEDS: ATORVASTATIN 80 MG (LIPITOR) TABLET PO SCH (20:51)
[2018-02-23] MEDS: VANCOMYCIN 1250 MG/NS 250 ML IVPB IV SCH ×2 (20:53)
[2018-02-24 00:52] VITALS: BP 132/55
[2018-02-24] MEDS: oxyCODONE/APAP 7.5-325 MG (PERCOCET 7.5) TABLET PO PRN ×3 (04:20→14:36)
[2018-02-24 06:20] LABS: BASOPHILS # (AUTO) 0.1 10^3/uL (0.0-0.1); BASOPHILS % (AUTO) 1 % (0-10); EOSINOPHILS # (AUTO) 0.3 10^3/uL (0.0-0.3); EOSINOPHILS % (AUTO) 5 % (0-10); HEMATOCRIT 31 % (40-54); LYMPHOCYTES # (AUTO) 1.6 X 10^3 (1.0-4.0); LYMPHOCYTES % (AUTO) 23 % (12-44); MEAN CORPUSCULAR HEMOGLOBIN 31 PG (25-34); MEAN CORPUSCULAR HGB CONC 32 G/DL (32-36); MEAN CORPUSCULAR VOLUME 96 FL (80-99); MEAN PLATELET VOLUME 8.6 FL (7.4-10.4); MONOCYTES # (AUTO) 1.2 X 10^3 (0.0-1.0); MONOCYTES % (AUTO) 18 % (0-12); NEUTROPHILS # (AUTO) 3.7 X 10^3 (1.8-7.8); NEUTROPHILS % (AUTO) 54 % (42-75); PLATELET COUNT 535 10^3/uL (130-400); RED BLOOD COUNT 3.24 10^6/uL (4.35-5.85); RED CELL DISTRIBUTION WIDTH 13.2 % (10.0-14.5); WHITE BLOOD COUNT 6.9 10^3/uL (4.3-11.0)
[2018-02-24] MEDS: ENOXAPARIN 60 MG/0.6 ML (LOVENOX) SYR SC SCH ×2 (06:20→17:24)
[2018-02-24] MEDS: VANCOMYCIN 1250 MG/NS 250 ML IVPB IV SCH ×6 (06:21→22:20)
[2018-02-24] MEDS: KCL 10 MEQ TAB (MICRO K) PO SCH (06:21)
[2018-02-24] MEDS: PIPERACILLIN/TAZO 4.5 GM/NS 100 ML IV SCH ×6 (06:22→22:20)
[2018-02-24] MEDS: inSUlin ASPART (NovoLOG) 1 UNIT/0.01 ML (CHARGE PER UNIT) SC SCH ×4 (06:25→22:21)
[2018-02-24 06:39] LABS: BUN/CREATININE RATIO 12; CALCIUM 8.5 MG/DL (8.5-10.1); CARBON DIOXIDE 22 MMOL/L (21-32); CHLORIDE 107 MMOL/L (98-107); CREATININE SERUM 0.92 MG/DL (0.60-1.30); GFR ESTIMATED > 60; GLUCOSE 111 MG/DL (70-105); MAGNESIUM 1.8 MG/DL (1.8-2.4); POTASSIUM 3.7 MMOL/L (3.6-5.0); SODIUM 137 MMOL/L (135-145)
[2018-02-24 08:00] VITALS: BP 139/62
--- NOTE | 2018-02-24 08:46 | Progress Note (SOAP) ---
Subjective Subjective Date Seen by Provider: Feb 24, 2018 Time Seen by Provider: 07:30 47 yo M admitted for sepsis due to cellulitis- -pain is better -He is getting up to the bathroom easier- -continues to improve. -No issues urinating. Normal appetite blood sugar under good control Review of Systems General: No Chills, No Night Sweats HEENT: No Head Aches Pulmonary: No Dyspnea, No Cough Cardiovascular: No: Chest Pain, Palpitations Gastrointestinal: No: Nausea Genitourinary: No Dysuria, No Frequency Musculoskeletal: leg pain Neurological: No: Weakness, Numbness, Confusion Objective Exam Vital Signs Vital Signs Date Time Temp Pulse Resp B/P (MAP) Pulse Ox O2 Delivery O2 Flow Rate FiO2 02/24/18 00:52 98.3 90 18 132/55 (80) 95 Room Air 02/23/18 16:50 97.5 101 22 117/58 (77) 96 Room Air I & O 02/24/18 07:00 Intake Total 2152.5 ml Balance 2152.5 ml General Appearance: No Apparent Distress, WD/WN, Obese (super morbidly) Eyes: Bilateral Eye PERRL, Bilateral Eye EOMI HEENT: PERRL/EOMI, Moist Mucous Membranes Respiratory: Chest Non Tender, Lungs Clear, Normal Breath Sounds, No Accessory Muscle Use, No Respiratory Distress Cardiovascular: Regular Rate, Rhythm, No Murmur Gastrointestinal: Non Tender Rectal: Deferred Back: Normal Inspection Extremity: Other (improving, scabbing up.- kerlix wrapped. oozing decreasing.) Neurologic/Psychiatric: Alert, Oriented x3, No Motor/Sensory Deficits, Normal Mood/Affect Skin: Normal Color, Warm/Dry, Other (As noted above on left lower extremity) Lymphatic: No Adenopathy Results Lab Laboratory Tests 02/23/18 10:10: Vancomycin Level Trough 23.5H 02/23/18 10:45: Glucometer 134H 02/23/18 16:54: Glucometer 131H 02/23/18 20:26: Glucometer 154H 02/24/18 05:29: Glucometer 125H 02/24/18 06:05: White Blood Count 6.9, Red Blood Count 3.24L, Hemoglobin 10.0L, Hematocrit 31L, Mean Corpuscular Volume 96, Mean Corpuscular Hemoglobin 31, Mean Corpuscular Hemoglobin Concent 32, Red Cell Distribution Width 13.2, Platelet Count 535H, Mean Platelet Volume 8.6, Neutrophils (%) (Auto) 54, Lymphocytes (%) (Auto) 23, Monocytes (%) (Auto) 18H, Eosinophils (%) (Auto) 5, Basophils (%) (Auto) 1, Neutrophils # (Auto) 3.7, Lymphocytes # (Auto) 1.6, Monocytes # (Auto) 1.2H, Eosinophils # (Auto) 0.3, Basophils # (Auto) 0.1, Sodium Level 137, Potassium Level 3.7, Chloride Level 107, Carbon Dioxide Level 22, Anion Gap 8, Blood Urea Nitrogen 11, Creatinine 0.92, Estimat Glomerular Filtration Rate > 60, BUN/ Creatinine Ratio 12, Glucose Level 111H, Calcium Level 8.5, Magnesium Level 1.8 Microbiology 02/11/18 Blood Culture - Final, Complete No growth Assessment/Plan Assessment/Plan Admission Dx left leg cellulitis Assessment and Plan 47 yo M left leg cellulitis/erysipelas- zosyn 02/13/18-->. Vancomycin started ---> continue wound care (I87.2) Venous insufficiency (chronic) (peripheral)- elevate legs, weight loss recommended- making cellulitis slow to heal. lasix added to help with edema I73.9- PAD- Dr. Bauer consulted for intervention- appears to be stenosis in iliac artery region- likely contributing to slow improvement of cellulitis. continue ASA, plavix, statin (E66.01) Morbid (severe) obesity due to excess calories- weight loss recommended- consider bariatric surgery (I10) Essential (primary) hypertension- resume BP medications (E11.9) Type 2 diabetes mellitus- good control, continue regimen (K21.9) Gastro-esophageal reflux disease without esophagitis - monitor symptoms. -hypokalemia- replacing prn -hypomagnesemia- replacing prn Dispo: admitted for left leg cellulitis- slow progress- will need to get CT angio of vasculature of iliac (left leg) and possible cath to improve arterial flow- unable to do at [facility] due to weight limit of the table right now will monitor progress of his left leg cellulitis. Dr. Vu consulted for wound management - silvadene topically- -will consider referral to [facility] if condition worsens. lovenox BID for dvt ppx -Pt continues to improve- possibly discharge to home this week with home health or wound care appts. Problems: (1) PAD (peripheral artery disease) Assessment & Plan: arterial u/s- stenosis noted proximal to common femoral artery- Dr. Bauer consulted --will plan for follow up evaluation after cellulitis resolved. (2) JEFERSON on CPAP (3) Morbid obesity with BMI of 60.0-69.9, adult (4) Hypokalemia Admission Dx left leg cellulitis Clinical Quality Measures Admission Status Admission Dx left leg cellulitis DVT/VTE Risk/Contraindication: Risk Factor Score Per Nursin RFS Level Per Nursing on Admit: 4+=Very High HARDY PAL MD Feb 24, 2018 08:46
[2018-02-24] MEDS: SILVER SULFADIAZINE 50 GM CREAM TOP SCH (08:56)
[2018-02-24] MEDS: FUROSEMIDE 40 MG/4 ML INJ (LASIX) IVP SCH (09:02)
[2018-02-24] MEDS: inSUlin DETERMIR 1 UNIT/0.01 ML (LEVEMIR) CHARGE PER UNIT SQ SCH ×2 (09:02→22:20)
[2018-02-24] MEDS: SILVER SULFADIAZINE 400 GM CREAM TOP SCH (09:02)
[2018-02-24] MEDS: ASPIRIN 81 MG CHEW (CHILDREN'S ASA) PO SCH (09:03)
[2018-02-24] MEDS: CLOPIDOGREL 75 MG (PLAVIX) TABLET PO SCH (09:03)
[2018-02-24] MEDS: MAGNESIUM OXIDE (MAG-OX)400 MG TAB PO SCH ×2 (09:05→17:24)
--- NOTE | 2018-02-24 14:03 | Cardiology Progress Note ---
Cardiology SOAP Progress Note Subjective: No cardiac complaints. Improvement in left lower extremity wound. Objective: I&O/Vital Signs 02/24/18 08:00 Temp 97.5 Pulse 88 Resp 20 B/P (MAP) 139/62 (87) Pulse Ox 95 O2 Delivery Room Air 02/24/18 00:00 Intake Total 1652.5 ml Balance 1652.5 ml Weight (Pounds): 475 Weight (Ounces): 9.0 Weight (Calculated Kilograms): 215.825271 Constitutional: appears stated age, AAO x 3; No apparent distress; well- developed, well-nourished, other (morbid obesity) Respiratory: No accessory muscle use, No respiratory distress, No chest tender , No chest expansion is symmetric; chest is bilaterally symmetric; No lungs clear to percussion; lungs clear to auscultation; No crackles, No rhonchi, No rales, No stridor, No wheezing, No pleural rub, No other Cardiovascular: regular rate-rhythm, edema, S1 and S2 Gastrointestional: No tender, No soft, No round, No distended, No pulsatile mass, No organomegaly, No guarding, No rebound, No tenderness, No hernia, No mass, No audible bowel sounds, No abnormal bowel sounds, No abdominal bruits, No spleenomegaly, No other Extremities: No clubbing, No cyanosis; significant edema, wound (left lower extremity.) Neurologic/Psychiatric: no motor/sensory deficits, alert, normal mood/affect, oriented x 3, power is 5/5 both on sides Skin: No normal color, No warm/dry, No cyanosis, No cool, No diaphoresis, No damp, No ecchymosis, No jaundice, No mottled, No pallor, No rash, No tattoos/ piercings, No ulcerations, No rash on exposed areas, No ulcerations on exposed areas, No other Results/Procedures: Labs Laboratory Tests 02/23/18 16:54: Glucometer 131H 02/23/18 20:26: Glucometer 154H 02/24/18 05:29: Glucometer 125H 02/24/18 06:05: White Blood Count 6.9, Red Blood Count 3.24L, Hemoglobin 10.0L, Hematocrit 31L, Mean Corpuscular Volume 96, Mean Corpuscular Hemoglobin 31, Mean Corpuscular Hemoglobin Concent 32, Red Cell Distribution Width 13.2, Platelet Count 535H, Mean Platelet Volume 8.6, Neutrophils (%) (Auto) 54, Lymphocytes (%) (Auto) 23, Monocytes (%) (Auto) 18H, Eosinophils (%) (Auto) 5, Basophils (%) (Auto) 1, Neutrophils # (Auto) 3.7, Lymphocytes # (Auto) 1.6, Monocytes # (Auto) 1.2H, Eosinophils # (Auto) 0.3, Basophils # (Auto) 0.1, Sodium Level 137, Potassium Level 3.7, Chloride Level 107, Carbon Dioxide Level 22, Anion Gap 8, Blood Urea Nitrogen 11, Creatinine 0.92, Estimat Glomerular Filtration Rate > 60, BUN/ Creatinine Ratio 12, Glucose Level 111H, Calcium Level 8.5, Magnesium Level 1.8 02/24/18 10:49: Glucometer 105 Microbiology 02/11/18 Blood Culture - Final, Complete No growth A/P: Assessment/Dx: Cellulitis, Nonhealing ulcers, Diabetes, Critical limb ischemia, Morbid obesity Plan: This is a 47-year-old patient with morbid obesity and diabetes with severe cellulitis and left lower extremity ulcers. Aggressive wound care management by Dr. Vu and on IV antibiotics including vancomycin and Zosyn by Dr. Ly. Slow/no improvement in lower extremity ulcers was noted. Arterial ultrasound shows possibility of high-grade PAD in the left lower extremity. However due to significant obesity pressures and segmental wave forms could not be noted. I've discussed at length with the patient, nursing staff, Dr. Ly and Dr. Vu. Unfortunately our poultry farm laborer table, upper limit for weight is 762706 pounds. The patient weighs over 475 pounds, therefore patient safety can be compromised if we attempt peripheral angiography in our cardiac catheterization lab. CT angiography could not be done due to morbid obesity. Patient is on aspirin, Plavix and high-dose statin. Start IV Lasix, strict input and output. 2 g sodium diet. Daily weight. There may be some improvement in the lymphedema with Lasix. Aggressive wound care management by Dr. Kiran, Dr. Vu and his team. Thank you for your consultation. Please call me if you have any questions. German Bauer MD, FACP, FACC, FSCAI, FHRS, CCDS Interventional Cardiology Cardiac Electrophysiology Vascular Medicine and Endovascular Interventions Panfilo BAUER MD Feb 24, 2018 2:03 pm
--- NOTE | 2018-02-24 14:05 | Progress Note ---
Subjective Time Seen by a Provider: 12:58 Subjective/Events-last exam Pt seen and examined, no complaints. Review of Systems General: No Chills, No Night Sweats Pulmonary: No Dyspnea, No Cough Cardiovascular: No: Chest Pain, Palpitations Objective Exam Vital Signs Date Time Temp Pulse Resp B/P (MAP) Pulse Ox O2 Delivery O2 Flow Rate FiO2 02/24/18 08:00 97.5 88 20 139/62 (87) 95 Room Air 02/24/18 00:52 98.3 90 18 132/55 (80) 95 Room Air 02/23/18 16:50 97.5 101 22 117/58 (77) 96 Room Air I & O 02/24/18 07:00 Intake Total 2152.5 ml Balance 2152.5 ml Capillary Refill : Less Than 3 Seconds General Appearance: No Apparent Distress, WD/WN, Obese (super morbidly) HEENT: PERRL/EOMI, Moist Mucous Membranes Respiratory: Chest Non Tender, Lungs Clear, Normal Breath Sounds, No Accessory Muscle Use, No Respiratory Distress Cardiovascular: Regular Rate, Rhythm, No Murmur Gastrointestinal: normal bowel sounds, soft Extremity: Other (improving, scabbing up.- kerlix wrapped. oozing decreasing.) Neurologic/Psychiatric: Alert, Oriented x3, No Motor/Sensory Deficits, Normal Mood/Affect Skin: Normal Color, Warm/Dry Results Lab Laboratory Tests 02/23/18 16:54: Glucometer 131H 02/23/18 20:26: Glucometer 154H 02/24/18 05:29: Glucometer 125H 02/24/18 06:05: White Blood Count 6.9, Red Blood Count 3.24L, Hemoglobin 10.0L, Hematocrit 31L, Mean Corpuscular Volume 96, Mean Corpuscular Hemoglobin 31, Mean Corpuscular Hemoglobin Concent 32, Red Cell Distribution Width 13.2, Platelet Count 535H, Mean Platelet Volume 8.6, Neutrophils (%) (Auto) 54, Lymphocytes (%) (Auto) 23, Monocytes (%) (Auto) 18H, Eosinophils (%) (Auto) 5, Basophils (%) (Auto) 1, Neutrophils # (Auto) 3.7, Lymphocytes # (Auto) 1.6, Monocytes # (Auto) 1.2H, Eosinophils # (Auto) 0.3, Basophils # (Auto) 0.1, Sodium Level 137, Potassium Level 3.7, Chloride Level 107, Carbon Dioxide Level 22, Anion Gap 8, Blood Urea Nitrogen 11, Creatinine 0.92, Estimat Glomerular Filtration Rate > 60, BUN/ Creatinine Ratio 12, Glucose Level 111H, Calcium Level 8.5, Magnesium Level 1.8 02/24/18 10:49: Glucometer 105 Microbiology 02/11/18 Blood Culture - Final, Complete No growth Assessment/Plan Assessment/Plan Assessment/Plan Cellulitis and Venous Insufficiency PAD Pt can be sent home and do wound care as an outpt. He will be getting IV ABX as outpt also. He had no questions. Clinical Quality Measures DVT/VTE Risk/Contraindication: Risk Factor Score Per Nursin RFS Level Per Nursing on Admit: 4+=Very High PONCE KANG DO Feb 24, 2018 14:05
[2018-02-24] MEDS: CATHETER FLUSH 10 ML SYR IV PRN ×2 (14:25→17:52)
[2018-02-24] MEDS: SENNA W/DOCUSATE (SENOKOT S) TABLET PO SCH ×2 (14:38→22:21)
[2018-02-24] MEDS: DOCUSATE SODIUM 100 MG (COLACE) CAP PO SCH ×2 (14:38→22:20)
[2018-02-24] MEDS: POLYETHYLENE GLYCOL 17 GM (MIRALAX) PACK PO SCH ×2 (14:38→22:21)
[2018-02-24 16:48] VITALS: BP 120/56
[2018-02-24] MEDS: fentaNYL INJECTION 100 MCG/2 ML AMP IVP PRN ×2 (17:52→22:20)
[2018-02-24] MEDS: ATORVASTATIN 80 MG (LIPITOR) TABLET PO SCH (22:20)
[2018-02-25 00:25] VITALS: BP 125/58
[2018-02-25] MEDS: oxyCODONE/APAP 7.5-325 MG (PERCOCET 7.5) TABLET PO PRN ×2 (02:59→13:30)
[2018-02-25] MEDS ORDERED: TROUGH ORDER-PHARMACY XX NR (05:00)
[2018-02-25] MEDS: PIPERACILLIN/TAZO 4.5 GM/NS 100 ML IV SCH ×2 (06:36)
[2018-02-25] MEDS: ENOXAPARIN 60 MG/0.6 ML (LOVENOX) SYR SC SCH (06:36)
[2018-02-25] MEDS: KCL 10 MEQ TAB (MICRO K) PO SCH (06:36)
[2018-02-25] MEDS: inSUlin ASPART (NovoLOG) 1 UNIT/0.01 ML (CHARGE PER UNIT) SC SCH ×2 (06:38→11:33)
[2018-02-25 08:00] VITALS: BP 145/63
[2018-02-25] MEDS ORDERED: VANCOMYCIN 1500 MG/NS 500 ML IVPB IV SCH ×2 (09:00)
[2018-02-25] MEDS: DOCUSATE SODIUM 100 MG (COLACE) CAP PO SCH (09:39)
[2018-02-25] MEDS: CLOPIDOGREL 75 MG (PLAVIX) TABLET PO SCH (09:40)
[2018-02-25] MEDS: SENNA W/DOCUSATE (SENOKOT S) TABLET PO SCH (09:40)
[2018-02-25] MEDS: ASPIRIN 81 MG CHEW (CHILDREN'S ASA) PO SCH (09:40)
[2018-02-25] MEDS: MAGNESIUM OXIDE (MAG-OX)400 MG TAB PO SCH (09:40)
[2018-02-25] MEDS: POLYETHYLENE GLYCOL 17 GM (MIRALAX) PACK PO SCH (09:40)
[2018-02-25] MEDS: FUROSEMIDE 40 MG/4 ML INJ (LASIX) IVP SCH (09:40)
[2018-02-25] MEDS: inSUlin DETERMIR 1 UNIT/0.01 ML (LEVEMIR) CHARGE PER UNIT SQ SCH (09:41)
[2018-02-25] MEDS: fentaNYL INJECTION 100 MCG/2 ML AMP IVP PRN (11:08)
[2018-02-25] MEDS: SILVER SULFADIAZINE 400 GM CREAM TOP SCH (11:14)
--- NOTE | 2018-02-25 11:14 | Cardiology Progress Note ---
Cardiology SOAP Progress Note Subjective: No cardiac complaints. Objective: I&O/Vital Signs 02/25/18 02/25/18 00:25 08:00 Temp 97.8 98.0 Pulse 95 92 Resp 18 18 B/P (MAP) 125/58 (80) 145/63 (90) Pulse Ox 95 96 O2 Delivery Room Air Room Air 02/25/18 00:00 Intake Total 1895 ml Balance 1895 ml Weight (Pounds): 467 Weight (Ounces): 3.0 Weight (Calculated Kilograms): 211.367617 Constitutional: appears stated age, AAO x 3; No apparent distress; well- developed, well-nourished, other (morbid obesity) Respiratory: No accessory muscle use, No respiratory distress, No chest tender , No chest expansion is symmetric; chest is bilaterally symmetric; No lungs clear to percussion; lungs clear to auscultation; No crackles, No rhonchi, No rales, No stridor, No wheezing, No pleural rub, No other Cardiovascular: regular rate-rhythm, edema, S1 and S2 Gastrointestional: No tender, No soft, No round, No distended, No pulsatile mass, No organomegaly, No guarding, No rebound, No tenderness, No hernia, No mass, No audible bowel sounds, No abnormal bowel sounds, No abdominal bruits, No spleenomegaly, No other Extremities: No clubbing, No cyanosis; significant edema, wound (left lower extremity.) Neurologic/Psychiatric: no motor/sensory deficits, alert, normal mood/affect, oriented x 3, power is 5/5 both on sides Skin: No normal color, No warm/dry, No cyanosis, No cool, No diaphoresis, No damp, No ecchymosis, No jaundice, No mottled, No pallor, No rash, No tattoos/ piercings, No ulcerations, No rash on exposed areas, No ulcerations on exposed areas, No other Results/Procedures: Labs Laboratory Tests 02/24/18 15:34: Glucometer 110 02/24/18 20:31: Glucometer 144H 02/25/18 05:14: Glucometer 112H 02/25/18 05:25: Vancomycin Level Trough 20.8H Microbiology 02/11/18 Blood Culture - Final, Complete No growth A/P: Assessment/Dx: Cellulitis, Nonhealing ulcers, Diabetes, Critical limb ischemia, Morbid obesity Plan: This is a 47-year-old patient with morbid obesity and diabetes with severe cellulitis and left lower extremity ulcers. Aggressive wound care management by Dr. Vu and on IV antibiotics including vancomycin and Zosyn by Dr. Ly. Slow/no improvement in lower extremity ulcers was noted. Arterial ultrasound shows possibility of high-grade PAD in the left lower extremity. However due to significant obesity pressures and segmental wave forms could not be noted. I've discussed at length with the patient, nursing staff, Dr. Ly and Dr. Vu. Unfortunately our lab intern table, upper limit for weight is 134746 pounds. The patient weighs over 475 pounds, therefore patient safety can be compromised if we attempt peripheral angiography in our cardiac catheterization lab. CT angiography could not be done due to morbid obesity. Patient is on aspirin, Plavix and high-dose statin. On IV Lasix, strict input and output. 2 g sodium diet. Daily weight. There may be some improvement in the lymphedema with Lasix. Current weight 467 lbs. Aggressive wound care management by Dr. Kiran, Dr. Vu and his team. Once discharged, I can follow-up in 2-3 weeks. Thank you for your consultation. Please call me if you have any questions. German Bauer MD, FACP, FACC, FSCAI, FHRS, CCDS Interventional Cardiology Cardiac Electrophysiology Vascular Medicine and Endovascular Interventions Panfilo BAUER MD Feb 25, 2018 11:14 am
[2018-02-25] MEDS: SILVER SULFADIAZINE 50 GM CREAM TOP SCH (11:33)
--- NOTE | 2018-02-25 11:48 | Discharge Summary ---
Diagnosis/Chief Complaint Date of Admission Feb 11, 2018 at 11:09 Date of Discharge February 25, 2018 Admission Diagnosis Admission Diagnosis A41.9 sepsis due to left leg cellulitis- (I87.2) Venous insufficiency (chronic) (peripheral)- (E66.01) Morbid (severe) obesity due to excess calories- (G47.39) Other sleep apnea- (I10) Essential (primary) hypertension (E11.9) Type 2 diabetes mellitus- (K21.9) Gastro-esophageal reflux disease without esophagitis - Discharge Diagnosis A41.9 sepsis L03.116 left leg cellulitis/erysipelas- (I87.2) Venous insufficiency (chronic) (peripheral)- I73.9- PAD- (E66.01) Morbid (severe) obesity due to excess calories- (I10) Essential (primary) hypertension- (E11.9) Type 2 diabetes mellitus- (K21.9) Gastro-esophageal reflux disease without esophagitis -E87.6 hypokalemia- -E83.42 hypomagnesemia- Reason Hospital Visit left leg cellulitis 47 yo M admitted from the ER for left leg cellulitis and worsening pain- He has chronic woody lymphedema of bilateral legs that he gets cellulitis in on occasion. This is the worst it has been. Onset 2 days ago. He has taken NSAIDs without much relief. He also was diagnosed with Diabetes a couple months ago- but we have gotten it under decent control with current regimen of insulin, with blood sugars running around 110- but since he had became ill blood sugars are in 170s. noted he has had a fever. The left leg pain and cellulitis was rapid in onset. Denies any drainage or injury. Pt is morbidly obese and we have talked about bariatric surgery which would help with most of his chronic issues including his diabetes and lower extremity issues. 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 No history of blood clots. Discharge Summary Hospital Course Hospital Course 47 yo M admitted for left leg cellulitis that had developed into sepsis on admission. He did have a drop in blood pressure once IV rocephin was started and IV opioids were given. He was kept on IVF and worked up for sepsis. Blood cultures were no growth. He was on rocephin a couple days with improvement noted. He was switched to zosyn because he was diabetic and vancomycin was added on the following day. Patient's left leg stayed swollen, painful and warm prompting consultation of Dr. Kiran and Dr. Vu for further work up. Ultrasound did not find any DVTs but concern for PAD with narrowing of artery up in groin area (suspect iliac artery). Patient would not fit on CT table for further evaluation nor would he fit on the cath table to exam the vasculature further due to weight limits. Patient's leg began to ooze and his leg was wrapped with silvadene, abd pads. Dr Vu and Dr Kiran - debrided his left leg with resulting (although slow) improvement. Patient's blood pressure remained under control as did his diabetes. He has gained a good control on his diabetes since diagnosis in September 2017. Patient was deemed stable for discharge to home 02/25/18 with daily follow up with wound care. He completed 2 weeks on zosyn and vancomycin. He will continue augmentin and doxycycline for 2 weeks. Labs Procedures None. Discharge Physical Examination Allergies: Coded Allergies: No Known Drug Allergies (Unverified , 10/08/17) Vitals & I&Os Vital Signs Date Time Temp Pulse Resp B/P (MAP) Pulse Ox O2 Delivery O2 Flow Rate FiO2 02/25/18 08:00 98.0 92 18 145/63 (90) 96 Room Air General Appearance: Alert, Oriented X3, Cooperative HEENT: Atraumatic Respiratory: Clear to Auscultation Cardiovascular: Regular Rate Abdominal: Normal Bowel Sounds, Soft Extremities: Other (tender left leg- improvd though in pain, swelling, edema, infection) Neuro: Normal Speech Psych/Mental Status: Mental Status NL, Mood NL Discharge Home Medications Reviewed and agree with Discharge Medication list on patient's Discharge Instruction sheet Condition at Discharge stable Instructions to Patient/Family Please see electronic discharge instructions given to patient. Clinical Quality Measures DVT/VTE Risk/Contraindication: Risk Factor Score Per Nursin RFS Level Per Nursing on Admit: 4+=Very High HARDY PAL MD Feb 25, 2018 11:48
[2018-02-25] MEDS ORDERED: ASPI-999 PO (11:57)
[2018-02-25] MEDS ORDERED: FURO40TA4 PO (11:57)
[2018-02-25] MEDS ORDERED: OXYC1TAB16 PO (11:57)
[2018-02-25] MEDS ORDERED: CLOP75TA28 PO (11:57)
[2018-02-25] MEDS ORDERED: AMOX-358 PO (11:57)
[2018-02-25] MEDS ORDERED: ATOR80TA76 PO (11:57)
[2018-02-25] MEDS ORDERED: MAGN400T6 PO (11:57)
[2018-02-25] MEDS ORDERED: DOXY100C42 PO (11:57)
--- NOTE | 2018-02-25 12:03 | Discharge Inst-Simple/Standard ---
Discharge Inst-Standard Discharge Medications New, Converted or Re-Newed RX: Transmitted to Pharmacy Patient Instructions/Follow Up Plan of Care/Instructions/FU: --Complete 14 more days of augmentin and doxycycline- also you need to buy a probiotic to help prevent diarrhea and an intestinal bacterial overgrowth infection. -KEEP LEG ELEVATED- --use lasix to help with edema --continue potassium and magnesium as both of these were low (partly due to the lasix) ---you will notice new medication statin, aspirin, plavix- Dr. Bauer started them for your artery issue higher in your leg, pelvic area. --percocet for pain management. --follow up with Wound Care for dressing changes and future plan of care. --Follow up with Dr. Bauer cardiology in 1-2 weeks- need to discuss future evaluation with the CT. --Follow up with Dr. Kiran within 1 week. --Follow up with [facility] (Dr. Pal) in 1-2 weeks. Activity as Tolerated: Yes Discharge Diet: ADA Diet Return to The Hospital For: fever, worsening of your leg new concerns such as chest pain or difficulty breathing. Planned Outpatient Orders/Ref. Pneu Vac Indicated: Yes HARDY PAL MD Feb 25, 2018 12:03
[2018-02-27] MEDS ORDERED: TROUGH ORDER-PHARMACY XX NR (08:00)
--- OUTSIDE RECORDS SUMMARY | 2018-02-27 14:32 | XMS REPORT | Clinical Summary ---
Author Author [facility] Organization [facility] Address Unknown Phone Unavailable Care Team Providers Care Bucket Pusher Name Role Phone [place] MD PCP Source Comments Some departments are not documenting in the electronic medical record. If you do not see the information that you expected, contact Release of Information in the Health Information Management department at [phone] for further assistance in locating additional records.[facility] Allergies No Known Allergies Current Medications [...] SCREENING 10/15/1987 TETANUS VACCINE 1989 INFLUENZA VACCINE 12/17/2017 02/17/2015 Results Not on filefrom Last 3 Months
== END 2018-02-25 14:20 | disposition home or self-care (01) | DRG 872 ==
LOC: EDUNIT# 07:17 → ER 07:18 → INTOOBSV 11:09 → 4TH 11:09 → UNDOADMOB 11:09 → OBSVTOIN 11:09 → 4TH 11:09 → UNDODISIN 02-25 14:20
PROVIDERS: ADMIT Family Medicine; ATTEND Family Medicine
PROC: 0HBLXZZ Excision of Left Lower Leg Skin, External Approach (ICD-10-PCS; principal; 2018-02-18)
DX: A41.9 Sepsis, unspecified organism (principal); L03.116 Cellulitis of left lower limb; Z68.44 Body mass index [BMI] 60.0-69.9, adult; L97.229 Non-pressure chronic ulcer of left calf with unspecified severity; A46 Erysipelas; I10 Essential (primary) hypertension; G47.33 Obstructive sleep apnea (adult) (pediatric); I89.0 Lymphedema, not elsewhere classified; E11.65 Type 2 diabetes mellitus with hyperglycemia; Z79.4 Long term (current) use of insulin; I87.2 Venous insufficiency (chronic) (peripheral); E66.01 Morbid (severe) obesity due to excess calories; K21.9 Gastro-esophageal reflux disease without esophagitis; N50.89 Other specified disorders of the male genital organs; K59.01 Slow transit constipation; E87.6 Hypokalemia; I73.9 Peripheral vascular disease, unspecified; E83.42 Hypomagnesemia
CPT/HCPCS: 36415; 36569; 71045; 76881; 76937; 80048; 80053; 80069; 80076; 80202; 82962; 83605; 83735; 85007; 85025; 85027; 85379; 85610; 85730; 86141; 87040; 93005; 93925; 94640; 94664; 94760; 96361; 96374; 96375

== ENCOUNTER → 2018-03-04 | Outpatient (CLI) | payer BC ==
[~2018-03-04] MED LIST changes: +AMOX-358 PO; +ASPI-999 PO; +ATOR80TA76 PO; +CLOP75TA28 PO; +DOXY100C42 PO; +DULA0.75 SC; +FURO40TA4 PO; +INSU100I29 SC; +MAGN400T6 PO; +METF-397 PO; +METO5TAB6 PO; +NAPR220T66 PO; +OXYC1TAB16 PO; +POTA-51 PO
== END ==
LOC: LAB 10:08
PROVIDERS: ATTEND Surgery
DX: L97.221 Non-pressure chronic ulcer of left calf limited to breakdown of skin (principal); I87.332 Chronic venous hypertension (idiopathic) with ulcer and inflammation of left lower extremity; I87.321 Chronic venous hypertension (idiopathic) with inflammation of right lower extremity; E11.622 Type 2 diabetes mellitus with other skin ulcer; I89.0 Lymphedema, not elsewhere classified; E66.01 Morbid (severe) obesity due to excess calories; I70.202 Unspecified atherosclerosis of native arteries of extremities, left leg
CPT/HCPCS: 36415; 83036

== ENCOUNTER → 2018-03-04 | Outpatient (CLI) | payer BC | LOC: WOUNDCARE 08:32 | PROVIDERS: ATTEND Surgery | DX: L97.221 Non-pressure chronic ulcer of left calf limited to breakdown of skin (principal); I87.332 Chronic venous hypertension (idiopathic) with ulcer and inflammation of left lower extremity; I87.321 Chronic venous hypertension (idiopathic) with inflammation of right lower extremity; E11.622 Type 2 diabetes mellitus with other skin ulcer; I89.0 Lymphedema, not elsewhere classified; E66.01 Morbid (severe) obesity due to excess calories; I70.202 Unspecified atherosclerosis of native arteries of extremities, left leg | CPT/HCPCS: 99214 ==

== ENCOUNTER → 2018-03-11 | Outpatient (CLI) | payer BC | LOC: WOUNDCARE 09:25 | PROVIDERS: ATTEND Surgery | DX: I87.323 Chronic venous hypertension (idiopathic) with inflammation of bilateral lower extremity (principal); I70.202 Unspecified atherosclerosis of native arteries of extremities, left leg; E11.622 Type 2 diabetes mellitus with other skin ulcer; I89.0 Lymphedema, not elsewhere classified; E66.01 Morbid (severe) obesity due to excess calories; Z68.43 Body mass index [BMI] 50.0-59.9, adult | CPT/HCPCS: 29581 ==

== ENCOUNTER → 2018-03-18 | Outpatient (CLI) | payer BC | LOC: WOUNDCARE 08:50 | PROVIDERS: ATTEND Surgery | DX: I87.323 Chronic venous hypertension (idiopathic) with inflammation of bilateral lower extremity (principal); I70.202 Unspecified atherosclerosis of native arteries of extremities, left leg; E11.622 Type 2 diabetes mellitus with other skin ulcer; I89.0 Lymphedema, not elsewhere classified; E66.01 Morbid (severe) obesity due to excess calories; Z68.43 Body mass index [BMI] 50.0-59.9, adult; L97.221 Non-pressure chronic ulcer of left calf limited to breakdown of skin | CPT/HCPCS: 99212 ==

== ENCOUNTER → 2019-09-13 | Outpatient (CLI) | payer BC ==
[~2019-09-13] MED LIST changes: -AMLO5TAB7 PO; +AMLO5TAB9 PO; +ATOR80TA64 PO; +CLOB15CR2 TOP; +CYCL5TAB PO; +LISI40TA PO; -MAGN400T6 PO; +MAGN400T8 PO; +TRAM50TA3 PO
--- NOTE | 2019-09-13 10:00 | Diagnostic Imaging Report ---
INDICATION: Back pain and right flank pain. Time of exam 9:47 AM The bowel gas pattern appears nonobstructed. There are circumscribed ovoid densities left upper quadrant which may represent recently ingested pills. No radiopaque urinary tract calculi are seen. IMPRESSION: No acute abnormality is detected. Dictated by: Dictated on workstation # [id number]
== END ==
LOC: RAD 09:27
PROVIDERS: ATTEND Nurse Practitioner Family
DX: M54.9 Dorsalgia, unspecified (principal); R10.9 Unspecified abdominal pain
CPT/HCPCS: 74018

== ENCOUNTER → 2021-09-22 | Outpatient (CLI) | payer BC ==
[~2021-09-22] MED LIST changes: +AMLO-250 PO; -AMLO5TAB9 PO; +ASPI-1238 PO; +DOXY-311 PO; -DOXY100C42 PO; -LISI-552 PO; +LISI20TA26 PO; -LISI40TA PO; +LISI40TA9 PO; -MAGN400T8 PO; +METO50TA15 PO; +METO5TAB75 PO; +MGX400T PO; +PANT40TA2 PO; +POTA-179 PO; -POTA20TA15 PO
[2021-09-22 07:52] LABS: HEMATOCRIT 47 % (40-54); HEMOGLOBIN 15.6 g/dL (13.3-17.7); MEAN CORPUSCULAR HEMOGLOBIN 33 pg (25-34); MEAN CORPUSCULAR HGB CONC 33 g/dL (32-36); MEAN CORPUSCULAR VOLUME 98 fL (80-99); MEAN PLATELET VOLUME 9.7 fL (9.0-12.2); PLATELET COUNT 205 10^3/uL (130-400); WHITE BLOOD COUNT 6.1 10^3/uL (4.3-11.0)
[2021-09-22 08:02] LABS: POTASSIUM 4.2 MMOL/L (3.6-5.0)
[2021-09-22 08:03] LABS: ALBUMIN 4.1 GM/DL (3.2-4.5)
[2021-09-22 08:05] LABS: TOTAL PROTEIN 7.3 GM/DL (6.4-8.2)
[2021-09-22 08:09] LABS: CREATININE SERUM 0.97 MG/DL (0.60-1.30)
== END ==
LOC: LAB 07:36
PROVIDERS: ATTEND Nurse Practitioner Family
DX: Z00.01 Encounter for general adult medical examination with abnormal findings (principal); R60.0 Localized edema; E11.9 Type 2 diabetes mellitus without complications
CPT/HCPCS: 36415; 80053; 80061; 83036; 84443; 85027

== ENCOUNTER → 2021-09-27 | Outpatient (CLI) | payer BC ==
[~2021-09-27] MED LIST changes: +CATHETER FLUSH 10 ML SYR IV PRN; +HOLD METFORMIN - RECEIVED CONTRAST 20 ML VIAL IV SCH; +IOHEXOL 350 MG/ML 100 ML (OMNIPAQUE 350) VIAL IV ONE; +IOHEXOL 350 MG/ML 150 ML (OMNIPAQUE 350) VIAL IV ONE; +NS 100 ML (IVPB) BAG IV ONE
--- NOTE | 2021-09-28 08:53 | Diagnostic Imaging Report ---
INDICATION: Intermittent claudication. Post IV contrast-enhanced CT angiographic study of the abdomen and pelvis and bilateral runoffs performed with 2-D and 3-D reconstructions acquisitions carried out through the feet. FINDINGS: The abdominal aorta is widely patent. The celiac superior mesenteric and inferior mesenteric arteries as well as their primary branches patent. The bilateral renal arteries are patent. The aorta bifurcation is widely patent. The bilateral common iliac arteries patent. The bilateral external iliacs and major internal iliac branches widely patent. No significant plaque or stenosis. Right leg: The common femoral artery, the profunda as well as SFA widely patent throughout. The popliteal is patent. The common tibial peroneal trunk is patent. Proximally there is a normal three-vessel runoff in the upper to mid calf, beyond that level arterial opacification is very limited and the distal vessel patency cannot be addressed. Left leg: Patient is noted to have severe subcutaneous edema most notably in the calf. No discrete fluid collection. No bony destruction. No joint effusion and no fracture. No gas or opaque foreign body. The left common femoral artery is widely patent, the profunda and SFA are widely patent throughout. No appreciable plaque or significant stenosis. No segmental occlusion or thrombus. Popliteal is patent. The common tibial peroneal trunk is patent. Proximally there is a three-vessel runoff in the upper calf however the mid to lower calf arterial structures are very poorly opacified on a timing basis. IMPRESSION: No findings of aorto ilial or femoropopliteal hemodynamically significant stenosis thrombus or mesenteric ischemia. Limited arterial opacification of the runoff vessels of the calf bilaterally limiting their visualization. No detectable stenosis or thrombus was found. This patient has extensive left lower extremity subcutaneous edema without gas, foreign body or discrete fluid collection. Dictated by: Dictated on workstation # [id number]
== END ==
LOC: RAD 09-26 16:45
PROVIDERS: ATTEND Nurse Practitioner Family
DX: I73.9 Peripheral vascular disease, unspecified (principal)
CPT/HCPCS: 75635